=== PATIENT | male | born 1995 | race Caucasian/White ===

== ENCOUNTER 2018-10-17 04:57 | Emergency (ER) | payer OTHER, SELFPAY ==
[2018-10-17 04:58] VITALS: BP 126/66; PULSE 98; RESP 15; TEMP 36.7; O2SAT 97; BMI 29.6
--- NOTE | 2018-10-17 05:55 | ED.DCSUM_ITS ---
- ER Visit Summary Date of Service: 10/17/18 Chief Complaint: Sore throat History of Present Illness: The patient is a 23 M who presents with a sore throat and cough that began today. Patient states the pain is stabbing in his throat. Patient states it is worse when he lays down. Patient states that wate r does help with the pain. Patient admits to some drainage down the back of his throat that is worse when he lays flat. Patient admits to a cough but denies any sputum production. Patient states he does feel short of breath at times. Patient admits to nasal congestion but denies any headache or sinus pressure. Patient admits to an episode of nausea and vomiting earlier today. Physical Examination: Vital signs are stable. Patient is afebrile. Patient is in no acute distress. Oral mucosa is pink and moist. Oropharynx is erythematous. There are no exudates noted. Neck is supple. Trachea is midline. There is no JVD or lymphadenopathy noted. Heart was regular rate and rhythm. Lungs are clear and equal bilaterally. Abdomen is soft. Bowel sounds are normal. There is no tenderness. Cranial nerves II through XII are intact. There are no focal motor or sensory deficits noted. Test Results: Rapid strep was obtained and was negative. Emergency Department Course and Treatment: Patient was advised that this is a viral pharyngitis. Patient was instructed to take Tylenol or ibuprofen as need ed for aches or fevers. Patient was referred to follow-up with Dr. Deena Reynoso since she is the next primary care physician on-call for follow-up in 5 to 7 days. Patient understood and was agreeable with the plan. All questions were answered. Disposition: Discharge home Impression: Viral pharyngitis This note was generated with [employer] dictation software. It may contain incorrect words, spelling, and punctuation that were not noted in review of the chart prior to signing ED Disposition - Plan for ED Patient: Disposition: Home or Assisted Living Diagnosis: Viral pharyngitis Instructions: PHARYNGITIS, Viral Referrals: Care Physician,No Primary [Primary Care Provider] - Deena Reynoso MD [STAFF PHYSICIAN] - 5-7 Days Additional Instructions: This is a viral pharyngitis that is causing her sore throat. There is no antibiotic that will help with this. Take Tylenol or ibuprofen as you need to for fevers and aches. Warm showers will help with the cough and drainage. Follow-up with a primary care physician in 5 to 7 days.
[2018-10-17 07:04] VITALS: BP 121/77; PULSE 68; RESP 15; O2SAT 98
== END 2018-10-17 07:05 | disposition home or self-care (01) ==
PROVIDERS: Emergency Provider Emergency Medicine
DX: J02.8 Acute pharyngitis due to other specified organisms (principal); B97.89 Other viral agents as the cause of diseases classified elsewhere
CPT/HCPCS: 87880; 99282

== ENCOUNTER 2021-08-11 23:37 | Emergency (ER) | payer MEDICAID, SELFPAY ==
[2021-08-11 23:38] VITALS: BP 120/82; PULSE 96; RESP 16; TEMP 36.8; O2SAT 100; BMI 32.1
--- NOTE | 2021-08-11 23:49 | EDS_ITS ---
HPI History of Present Illness Chief Complaint: Lower Extremity Injury Informant: patient Narrative Narrative: Patient been drinking tonight celebrating 11 August. He was walking to the store with a friend. He accidentally tripped and fell on his left knee. He bumped his chin but no loss of consciousness. He states he thinks his kneecap was dislocated but it is better now. He states he rubbed his left arm on the ground but it does not hurt. He did not actually pass out at any time. His only complaint is mild left knee soreness. [facility] Medical History Anxiety Depression Home Medications naproxen 500 mg tablet 500 mg PO BID #20 tabs 08/12/21 [Rx Last Taken Unknown] Allergy/AdvReac Type Severity Reaction Status Date / Time No Known Allergies Allergy Verified 08/11/21 23:38 Social History Smoking Status: Current some day smoker tobacco type: cigarettes ROS ROS ED Eyes Eyes: Denies blurry vision, change in vision or diplopia ENT ENT ED: Reports other Details: Abraded chin but no pain 1. Cardiovascular Cardiovascular: Denies palpitations or racing heartbeat Gastrointestinal Gastrointestinal: Denies nausea or vomiting Musculoskeletal Musculoskeletal: Reports other Details: Left knee pain. ; Denies back pain or neck pain Integumentary Reports Abrasions Neurologic Neurologic: Denies paresthesias or weakness Hematologic/Lymphatic Hematologic/Lymphatic: Reports other Details: No anticoagulation ; Denies easy bleeding or easy bruising Allergic/Immunologic Allergic/Immunologic ED: Denies urticaria EXAM Physical Exam Const Vital Signs: 08/11/21 23:38 Temperature 98.2 F Temperature Source Temporal Pulse Rate 96 Respiratory Rate 16 Blood Pressure 120/82 H Blood Pressure Mean 94 Pulse Ox 100 Oxygen Delivery Method Room Air Positive well nourished and well developed General Appearance ED: well developed and NAD HEENT Reports moist mucous membranes HEENT Narrative: There is a slight abrasion on the front of the chin in the center. But no jaw tenderness. Teeth meet normally. No intraoral injury. No facial tenderness. No signs of any other injuries on the head. Eyes Eyes Narrative: Extraocular muscles are intact. Neck Neck Narrative: Although theNo tenderness or pain with range of motion. No complaints of pain. Patient has been drinking he is awake alert and clear informant as to the details of what happened. Chest Wall inspection of chest normal and palpation of chest normal Resp normal respiratory effort Auscultation: Negative for rales, rhonchi or wheezes Cardio regular rate and regular rhythm GI non-tender and non-distended Palpation: soft Back/Spine Cervical Spine: Negative for cervical spine tenderness Thoracic Spine / Upper Back: Negative for thoracic spinal tenderness Lumbar Spine / Lower Back: Negative for lumbar spinal tenderness Extremity Extremity Narrative: There is superficial abrasion to the dorsum of the left forearm but no tenderness or deformity. There are some abrasions around both knees anteriorly. Kneecap is in place clinically. Extensor mechanism is intact. However, on the left knee does have some mild nonfocal swelling anteriorly. The left knee has some tenderness where the right does not. Neuro oriented x3 Sensorium / Orientation: alert Psych mental status grossly normal Skin Trauma: abrasion; Negative for laceration MDM MDM MDM Narrative Medical decision making narrative: 4 view x-ray of the patient's left knee looked at by radiology and read by me shows no sign of fracture or dislocation. Repeat examination of the knee shows no clear laxity of ligaments. Extensor mechanism is intact. We discussed that if his patella was dislocated he certainly has some muscle and tendon tears. This might need physical therapy. He should use ice elevation. I would like him not to use an immobilizer because his knee is stable and I think it would worsen stiffness. I will refer him to orthopedics. We discussed reasons to return. We will get him up moving to make sure he is able to walk. I will give him some crutches for support. We will get him a safe ride home. Radiography Diagnostic Testing: Clinical Impression(s) from Imaging Studies Knee X-Ray 08/11/21 23:55 IMPRESSION: Negative left knee x-rays. Electronically Signed: Harshal Novak MD at 0:43 EDT , Discharge Plan Triage Chief Complaint: Lower Extremity Injury ED Provider: Jorge Rogers Dx/Rx/DC Orders Clinical Impression: Other dislocation of left patella, initial encounter, Injury of left knee Instructions: ED Knee Sprain, ED Patellar Dislocation/Subluxation Prescriptions: New naproxen 500 mg tablet 500 mg PO BID Qty: 20 0RF Primary Care Provider: Care Physician,No Primary Referrals: Jluius Maki DO [STAFF PHYSICIAN] - 1 Week Care Physician,No Primary [Primary Care Provider] - Disposition Disposition: Home, Self Care
--- NOTE | 2021-08-11 23:55 | RAD_ITS ---
EXAM: XR LEFT KNEE, 3 VIEWS CLINICAL INDICATION: trauma TECHNIQUE: Three views of the left knee. This report was created using [employer] report generation technology. COMPARISON: None. FINDINGS: BONES/JOINTS: Unremarkable. No acute fracture. No subluxation. Normal alignment. Preservation of the joint space. No sclerotic or destructive changes observed. SOFT TISSUES: Unremarkable. No soft tissue swelling or gas. No radiopaque foreign body. RAD/Knee 4 or More Views IMPRESSION: Negative left knee x-rays. Electronically Signed: Harshal Novak MD at 0:43 EDT ,
[2021-08-12 03:46] VITALS: BP 128/74; PULSE 91; RESP 16; O2SAT 97
[2021-08-12 03:48] VITALS: BP 124/81; PULSE 71; RESP 15; O2SAT 96
== END 2021-08-12 03:49 | disposition home or self-care (01) ==
PROVIDERS: Emergency Provider Emergency Medicine; Visit Provider Emergency Medicine
DX: S83.005A Unspecified dislocation of left patella, initial encounter (principal); S00.81XA Abrasion of other part of head, initial encounter; S50.812A Abrasion of left forearm, initial encounter; S80.211A Abrasion, right knee, initial encounter; S80.212A Abrasion, left knee, initial encounter; W18.09XA Striking against other object with subsequent fall, initial encounter; Y93.01 Activity, walking, marching and hiking; F17.210 Nicotine dependence, cigarettes, uncomplicated
CPT/HCPCS: 73564; 99284

== ENCOUNTER 2022-12-14 12:12 | Emergency (ER) | payer MEDICAID, SELFPAY ==
[2022-12-14] VITALS (8 sets, daily range): BP systolic 120–134; BP diastolic 61–82; PULSE 63–89; RESP 14–18; TEMP 36.4; O2SAT 98–100; BMI 29.9
[2022-12-14 12:49] LABS: Absolute Neutrophil Count 5.2 X10^3/uL (2.0-7.7); Basophil# 0.04 X10^3/uL; Basophil% 0.5 % (0-1); Eosinophil# 0.17 X10^3/uL; Eosinophils% 2.1 % (0-5); Hematocrit 43.5 % (40-54); Hemoglobin 15.2 g/dL (13.0-16.5); Lymphocyte % 25.2 % (19-41); Mean Corp Hgb Conc 34.9 g/dL (32-36); Mean Corpuscular Hgb 31.2 pg (27.0-32.0); Mean Corpuscular Volume 89.3 fL (80-94); Mean Platelet Vol. 10.3 fl (6.2-12.0); Monocyte# 0.54 X10^3/uL; Monocyte% 6.8 % (0-10); NRBC Flagged by Analyzer 0 % (0-5); Neutrophil # 5.17 X10^3/uL (2.7-7.7); Neutrophil % 65.1 % (47-70); Platelet Count 281 K/mm3 (150-450); RBC Distribution Width CV 11.9 % (11.6-14.6); RBC Distribution Width SD 38.5 fl (35.1-43.9); Red Blood Count 4.87 M/mm3 (4.6-6.2); White Blood Count 7.9 K/mm3 (4.4-11.0)
[2022-12-14 13:04] LABS: Anion Gap 6 (5-15); BUN 7 mg/dL (7-18); BUN/Creat Ratio 7.4 RATIO (10-20); Calcium,Total 8.8 mg/dL (8.5-10.1); Chloride 109 mmol/L (98-107); Creatinine, Serum 0.95 mg/dL (0.70-1.30); EST Glomerular Filtration Rate 99 mL/min (>60); Est Glom Filt Rate - Afr Amer 120 mL/min (>60); Estimated Creatinine Clearance 125.93 ml/min; Glucose 97 mg/dL (74-106); Potassium 3.5 mmol/L (3.5-5.1); Sodium Level 139 mmol/L (136-145)
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
[2022-12-14 13:30] LABS: Alcohol, Blood (Medical)-Serum < 3.0 mg/dL
[2022-12-14 15:02] LABS: Amphetamine Urine VISTA NEGATIVE (<1000 ng/mL); Barbiturate Urine VISTA NEGATIVE (< 200 ng/mL); Benzodiazepine Urine VISTA NEGATIVE (< 200 ng/mL); Cocaine Urine VISTA NEGATIVE (< 300 ng/mL); Ecstacy Urine VISTA POSITIVE (< 500 ng/mL); Methadone Urine VISTA NEGATIVE (< 300 ng/mL); PCP Urine VISTA NEGATIVE (< 25 ng/mL); THC Urine VISTA POSITIVE (< 50 ng/mL); Vista UDS pH Range 6
--- NOTE | 2022-12-14 18:52 | ED.RN ---
anne from crisis called with update that pt has been referred to Ricky and Trinh Marroquin at this time.
[2022-12-15] VITALS (9 sets, daily range): BP systolic 118–131; BP diastolic 61–74; PULSE 61–63; RESP 16–18; TEMP 36.6; O2SAT 99–100
[2022-12-15] MEDS: MELATONIN 10 MG TABLET PO (00:11)
== END 2022-12-15 07:01 ==
PROVIDERS: Emergency Provider Student in an Organized Health Care Education/Training Program; Visit Provider Student in an Organized Health Care Education/Training Program
DX: T14.91XA Suicide attempt, initial encounter (principal); F17.210 Nicotine dependence, cigarettes, uncomplicated
CPT/HCPCS: 80048; 80307; 82077; 85025; 87811; 99284

== ENCOUNTER 2023-06-03 18:45 | Emergency (ER) | payer MEDICAID, SELFPAY ==
[2023-06-03 19:00] VITALS: BP 115/80; PULSE 90; RESP 18; TEMP 35.8; O2SAT 100; BMI 28.6
--- NOTE | 2023-06-03 20:22 | EDS_ITS ---
HPI <LEIF Hollingsworth - Last Filed: 06/03/23 21:44> History of Present Illness Chief Complaint: Suicidal Narrative Narrative: Patient is a 28-year-old male who is currently transitioning to female however has been out of any sort of hormone replacement for multiple months. Patient does not take any of his psychiatric meds such as bupropion. Patient is here with his partner who is also transgender. Per the partner, for the last 1.5 months, the patient has been declining. The patient no longer does anything. The patient is unable to hold a job, the patient is not bathing herself, is not eating or drinking less told. The partner noticed that the patient was researching on the computer of how to kill yourself with no pain. This made the partner uneasy and brought her here for evaluation. PFSH <LEIF Hollingsworth - Last Filed: 06/03/23 21:44> PFS Medical History Anxiety Depression Home Medications bupropion HCl 300 mg 24 hr tablet, extended release 300 mg PO DAILY 06/03/23 [History Last Taken Unknown] Allergy/AdvReac Type Severity Reaction Status Date / Time No Known Allergies Allergy Verified 06/03/23 19:00 Social History Smoking Status: Current some day smoker tobacco type: cigarettes ROS <LEIF Hollingsworth - Last Filed: 06/03/23 21:44> ROS ED ROS Narrative Constitutional: Negative for fever, chills, weight loss, weakness Eyes: Negative for vision loss, vision change, double vision ENT: Negative for any sore throat, ear pain, congestion Cardiovascular: Negative for any chest pain, tightness, palpitations Respiratory: Negative for any cough, sputum production, hemoptysis, dyspnea, dyspnea on exertion, orthopnea Gastrointestinal: Negative for any abdominal pain, nausea, vomiting, diarrhea, constipation, blood in stool, blood in vomit : Negative for any urinary frequency, dysuria, retention, blood in urine Muscle skeletal: Negative for any neck pain, back pain Neurological: Negative for any headache, syncope, dizziness Skin: Negative for any rashes, itching, abrasions, lacerations Psychiatric: Negative for any homicidal ideation. Positive for depression, anxiety, suicidal ideation Hematologic: Negative for any excessive bruising, easy bleeding EXAM <LEIF Hollingsworth - Last Filed: 06/03/23 21:44> Physical Exam Narrative Exam Narrative: Vital signs reviewed. Patient appears disheveled, patient has poor eye contact, does stare different objects in the room, is a poor informant, not answering questions. Patient speaks very quietly, constantly saying that she does not know why this is happening to her. HEET: Head normocephalic atraumatic, TMs clear bilaterally. Posterior pharynx is clear, dry mucous membranes. Nares clear bilaterally. Neck: Supple with no lymphadenopathy or tenderness. No signs of meningismus. Cardiac: Regular rate and rhythm no murmurs gallops or rubs, equal peripheral pulses bilaterally. Respiratory: Lungs clear to auscultation bilaterally. No chest tenderness. Abdomen: Soft, nontender, nondistended. No abdominal bruit or pulsatile masses. No hepatosplenomegaly Extremities: No peripheral edema, no signs of gross trauma or deformity. Active full range of motion of all extremities. Neuro: Cranial nerves II through XII intact, no focal neurological deficits. Skin: Clean dry and intact with no rash, purpura, petechiae, vesicles or pustules. Backs/flank: No CVA tenderness, no midline spinal tenderness, no deformity. Psych: Normal mood and affect. No SI, HI or acute psychosis. Const Vital Signs: 06/03/23 19:00 06/03/23 21:28 Temperature 96.5 F L Temperature Source Temporal Pulse Rate 90 96 Respiratory Rate 18 18 Blood Pressure 115/80 105/74 Blood Pressure Mean 91 84 Pulse Ox 100 94 Oxygen Delivery Method Room Air Room Air Positive unkempt General Appearance ED: unkempt Psych Appearance: unkempt <Dr. Kelton Jaramillo MD - Last Filed: 06/03/23 21:39> Physical Exam Const Vital Signs: 06/03/23 19:00 06/03/23 21:28 Temperature 96.5 F L Temperature Source Temporal Pulse Rate 90 96 Respiratory Rate 18 18 Blood Pressure 115/80 105/74 Blood Pressure Mean 91 84 Pulse Ox 100 94 Oxygen Delivery Method Room Air Room Air MDM <LEIF Hollingsworth - Last Filed: 06/03/23 21:44> MDM Lab Data Labs: Laboratory Results - last 24 hr 06/03/23 20:40 WBC 10.5 RBC 5.76 Hgb 17.0 H Hct 51.3 MCV 89.1 MCH 29.5 MCHC 33.1 RDW Std Deviation 37.6 RDW Coeff of Sawyer 11.7 Plt Count 280 MPV 10.5 Immature Gran % (Auto) 0.400 Neut % (Auto) 65.7 Lymph % (Auto) 25.5 [place] % (Auto) 6.3 Eos % (Auto) 1.4 Baso % (Auto) 0.7 Absolute Neuts (auto) 6.9 Absolute Lymphs (auto) 2.68 Nucleated RBC % 0 Sodium 136 Potassium 3.8 Chloride 103 Carbon Dioxide 26.0 Anion Gap 7 BUN 7 Creatinine 1.05 Estim Creat Clear Calc 123.45 Est GFR (MDRD) Af Amer 107 Est GFR (MDRD) Non-Af 88 BUN/Creatinine Ratio 6.7 L Glucose 89 Calcium 9.3 Urine Opiates Screen NEGATIVE Urine Methadone Screen NEGATIVE Ur Barbiturates Screen NEGATIVE Ur Phencyclidine Scrn NEGATIVE Ur Amphetamines Screen NEGATIVE MDMA (Ecstasy) Screen NEGATIVE U Benzodiazepines Scrn NEGATIVE Urine Cocaine Screen NEGATIVE U Cannabinoids Screen POSITIVE H Ur Drug Screen Comment Ethyl Alcohol 4.0 Treatment and Re-Evaluation :: Differential diagnosis includes however is not limited to: Chronic anxiety, suicidal, psychosis, failure to thrive Patient is in no respiratory distress vital signs are stable patient presents to the emergency department for suicidal ideation, inability to care for herself. Patient is again a male that is transitioning female however is not had any hormone replacement multiple months. Patient has the visual look of a male. Patient was withdrawn, poor eye contact, patient did not admit to being suicidal however patient is not forthcoming with information, constantly says I do not know, just looks away and does not answer. Patient's partner states that the patient has been researching ways to kill oneself without pain, the patient does not been on any of her psychiatric meds because the patient does not want to take them. The patient appears disheveled, looks like she cannot care for herself, she is unable to even have a conversation.At this time, patient will receive basic laboratory values including a drug screen. Per the patient's partner, they only smoke marijuana rarely. Patient will be pink slipped. I b elieve the patient needs to be worked up with crisis and placed in the psychiatric unit for follow-up. Patient CBC was unremarkable, chemistries was unremarkable. Patient was positive for marijuana. Alcohol level was negative. Patient did follow-up with crisis who went into the room to talk to her. Currently waiting on their assessment. Patient will be given hydroxyzine for anxiety, currently waiting for placement. <Dr. Kelton Jaramillo MD - Last Filed: 06/03/23 21:39> [facility] Narrative Medical decision making narrative: I have personally performed a face to face assessment of the patient and have reviewed the DARRYL Note. I performed a substantive portion of the visit including all aspects of the following. My more findings include: History is [28-year-old biological male [id number] female. History of depression. More depressed and suicidal. No specific plan. No prior attempt. Prior mental health hospitalizations. Accompanied by patient's significant other.] Exam is [well-appearing 28-year-old biological male vital signs stable afebrile. No distress. No signs of toxidrome. No smell of alcohol. HEENT exam unremarkable. Neck nontender. No trauma. Lungs clear to auscultation. Heart regular rhythm no murmur rate about 90. Chest wall and ribs nontender. Abdomen soft nontender. Moving all 4 extremities. Nontender no edema no cords. No lacerations or trauma. 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 Normal dorsi plantarflexion. Back nontender. Neurologically awake and alert. Answering questions following commands.] Medical Decision Making [28-year-old biological male transitioning to female with depression and suicidal ideation. Patient is medically cleared. Labs are unremarkable other than positive for cannabis. Awaiting crisis evaluation for either discharge or mental health transfer. Patient be turned over to the overnight physician.] Other additions or changes: [None] History & Record Review Discussion w/independent historian: Patient and Significant other Lab Data Attestation: I reviewed the patient's lab results. Lab results narrative: CBC unremarkable. White count of 10. H&H is 17 and 51. Platelets 280. Electrolytes unremarkable gap 7. Normal BUN and creatinine. Glucose 89. Talk screen positive for cannabis only. Alcohol negative. Labs: Laboratory Results - last 24 hr 06/03/23 20:40 WBC 10.5 RBC 5.76 Hgb 17.0 H Hct 51.3 MCV 89.1 MCH 29.5 MCHC 33.1 RDW Std Deviation 37.6 RDW Coeff of [place]yer 11.7 Plt Count 280 MPV 10.5 Immature Gran % (Auto) 0.400 Neut % (Auto) 65.7 Lymph % (Auto) 25.5 [place] % (Auto) 6.3 Eos % (Auto) 1.4 Baso % (Auto) 0.7 Absolute Neuts (auto) 6.9 Absolute Lymphs (auto) 2.68 Nucleated RBC % 0 Sodium 136 Potassium 3.8 Chloride 103 Carbon Dioxide 26.0 Anion Gap 7 BUN 7 Creatinine 1.05 Estim Creat Clear Calc 123.45 Est GFR (MDRD) Af Amer 107 Est GFR (MDRD) Non-Af 88 BUN/Creatinine Ratio 6.7 L Glucose 89 Calcium 9.3 Urine Opiates Screen NEGATIVE Urine Methadone Screen NEGATIVE Ur Barbiturates Screen NEGATIVE Ur Phencyclidine Scrn NEGATIVE Ur Amphetamines Screen NEGATIVE MDMA (Ecstasy) Screen NEGATIVE U Benzodiazepines Scrn NEGATIVE Urine Cocaine Screen NEGATIVE U Cannabinoids Screen POSITIVE H Ur Drug Screen Comment Ethyl Alcohol 4.0 Discharge Plan Triage Chief Complaint: Suicidal ED Midlevel Provider: Alvaro Delacruz ED Provider: Kelton Jaramillo Dx/Rx/DC Orders Clinical Impression: Depression with suicidal ideation, Depression Prescriptions: No Action bupropion HCl 300 mg tablet extended release 24 hr 300 mg PO DAILY Patient Comments: taking inconsisently Primary Care Provider: Care Physician,No Primary Referrals: Care Physician,No Primary [Primary Care Provider] -
[2023-06-03 21:01] LABS: Absolute Lymphocyte Count 2.68 X10^3/uL (0.83-4.51); Absolute Neutrophil Count 6.9 X10^3/uL (2.0-7.7); Basophil# 0.07 X10^3/uL; Basophil% 0.7 % (0-1); Eosinophil# 0.15 X10^3/uL; Eosinophils% 1.4 % (0-5); Hematocrit 51.3 % (40-54); Lymphocyte # 2.68 X10^3/ul (0.83-4.51); Lymphocyte % 25.5 % (19-41); Mean Corp Hgb Conc 33.1 g/dL (32-36); Mean Corpuscular Hgb 29.5 pg (27.0-32.0); Mean Corpuscular Volume 89.1 fL (80-94); Mean Platelet Vol. 10.5 fl (6.2-12.0); Monocyte# 0.66 X10^3/uL; Monocyte% 6.3 % (0-10); NRBC Flagged by Analyzer 0 % (0-5); Neutrophil # 6.92 X10^3/uL (2.7-7.7); Neutrophil % 65.7 % (47-70); Platelet Count 280 K/mm3 (150-450); RBC Distribution Width CV 11.7 % (11.6-14.6); RBC Distribution Width SD 37.6 fl (35.1-43.9); Red Blood Count 5.76 M/mm3 (4.6-6.2); White Blood Count 10.5 K/mm3 (4.4-11.0)
[2023-06-03 21:13] LABS: Anion Gap 7 (5-15); BUN 7 mg/dL (7-18); BUN/Creat Ratio 6.7 RATIO (10-20); Calcium,Total 9.3 mg/dL (8.5-10.1); Chloride 103 mmol/L (98-107); Creatinine, Serum 1.05 mg/dL (0.70-1.30); EST Glomerular Filtration Rate 88 mL/min (>60); Est Glom Filt Rate - Afr Amer 107 mL/min (>60); Estimated Creatinine Clearance 123.45 ml/min; Glucose 89 mg/dL (74-106); Potassium 3.8 mmol/L (3.5-5.1); Sodium Level 136 mmol/L (136-145)
[2023-06-03 21:28] VITALS: BP 105/74; PULSE 96; RESP 18; O2SAT 94
[2023-06-03 21:30] LABS: Amphetamine Urine VISTA NEGATIVE (<1000 ng/mL); Barbiturate Urine VISTA NEGATIVE (< 200 ng/mL); Benzodiazepine Urine VISTA NEGATIVE (< 200 ng/mL); Cocaine Urine VISTA NEGATIVE (< 300 ng/mL); Ecstacy Urine VISTA NEGATIVE (< 500 ng/mL); Methadone Urine VISTA NEGATIVE (< 300 ng/mL); PCP Urine VISTA NEGATIVE (< 25 ng/mL); THC Urine VISTA POSITIVE (< 50 ng/mL); Vista UDS pH Range 5
[2023-06-03] MEDS: hydrOXYzine PAM 25 MG Capsule PO (21:40)
--- NOTE | 2023-06-04 03:32 | ED.RN ---
Attempted to call report to [facility], no answer.
[2023-06-04 05:22] VITALS: BP 93/55; PULSE 81; RESP 16; O2SAT 95
--- NOTE | 2023-06-04 06:37 | ED.RN ---
attempted to call report for second time to accepting facility, no answer.
[2023-06-04 06:56] VITALS: BP 93/55; PULSE 81; RESP 16; TEMP 35.8; O2SAT 95
== END 2023-06-04 07:14 ==
PROVIDERS: Emergency Provider Emergency Medicine; Visit Provider Emergency Medicine
DX: F32.A Depression, unspecified (principal); R45.851 Suicidal ideations; F41.9 Anxiety disorder, unspecified; F17.210 Nicotine dependence, cigarettes, uncomplicated
CPT/HCPCS: 80048; 80307; 80320; 85025; 99284; G0480

== ENCOUNTER 2023-07-12 08:00 | Outpatient (RCR) | payer MEDICAID, SELFPAY ==
--- NOTE | 2023-07-12 09:00 | BH.COMM_ITS ---
Communication Note Communication with Client Communication Note: Met with pt to complete initial paperwork. Completed the CSSR-S screening and risk assessment with pt. Client states thoughts of wishing to be , but denies any suicide attempts. Client reports she has thoughts she will , but in the context that fear someone will hurt her. Client denies active suicidal ideation, plan or intention to date. Discussed case with Dr. Em and pt will be admitted to [facility] level of care with diagnosis of Major Depressive Disorder, recurring, severe without psychosis F32.2.
--- NOTE | 2023-07-12 09:05 | BH.SGPN.GN ---
Behaviors/Verbalizations/Mental Status: [] Eye contact is poor. Motor activity is appropriate. Appearance is disheveled. Speech is soft. Mood is depressed. Affect is flat. Thoughts are linear and logical. No evidence of psychosis. Reviewed daily check in sheet and and pt reports 4/5 for not wanting to be alive ad 0/5 for intent. Completed [facility] Suicide screening with clinician prior to group. No imminent risk. Client Response/Progress/Benefit: [] Pt did not participate in group discussion. Decline to share. Pt declined to share. Spend majority of the session looking down at the ground. Unsure if attentive or not. Limited benefit from group. This was pt's first day in IOP so anxiety should be expected. Will continue in IOP to maintain safety, increase healthy coping, and improve functioning. Narrative Note: []
--- NOTE | 2023-07-12 10:15 | BH.SGPN.GN ---
Behaviors/Verbalizations/Mental Status: []Pt alert and oriented, casually dressed, grooming disheveled. Eye contact poor, looking away. Motor activity appropriate. Speech within normal limits, soft. Affect congruent, mood depressed, anxious. Thoughts linear, logical, no signs of hallucinations or delusions. Client Response/Progress/Benefit: [] Pt first day in tx, connected with topic of anxiety and attentive though passive participant throughout, taking notes. Listened throughout interactive discussion defining anxiety and identifying cognitive and physiological symptoms of anxiety. Group discussed how anxiety can prevent them from trying new things. Pt identified their physical signs of anxiety as: increased heart rate, biting finger, and stomach issues. Pt declined to identify safety behaviors however. Benefited from increased awareness and insight on anxiety and its impact. Pt will continue IOP tx to prevent decompensation, improve daily functioning, and increase engagement in activities she enjoys. Narrative Note: []
--- NOTE | 2023-07-12 11:15 | BH.SGPN.GN ---
Behaviors/Verbalizations/Mental Status: []Pt alert and oriented, disheveled and unkempt. Eye contact poor. Motor activity appropriate. Speech within normal limits. Affect flat, mood depressed. Thoughts linear, logical, no signs of hallucinations or delusions. Client Response/Progress/Benefit: [] Pt was a passive participant, but it was pt?s first day so this is common. Group was able to identify self-soothing and mind-based coping skills which included: 5-senses, meditation, deep breathing, TIPP, thought challenging, and progressive muscle relaxation. Pt declined to share what skills she would like to work on. Appeared to benefit from increasing repertoire of anxiety reduction skills. Pt will continue IOP tx to prevent decompensation, reduce avoidance, and monitor medication. Narrative Note: []
--- NOTE | 2023-07-13 09:00 | BH.SGPN.GN ---
Behaviors/Verbalizations/Mental Status: [] Eye contact poor, pt looking down. Motor activity appropriate. Speech soft, providing limited input. Affect congruent, mood anxious, depressed. Thoughts linear, logical, no signs of hallucinations or delusions. Reviewed client?s symptom tracker, denies SI, plan, or intent as of 07/13/2023. Client Response/Progress/Benefit: [] Client attentive and listening as group processed. Client denied however to process their own emotions with the group, reporting feeling too uncomfortable and anxious to do so at this time. Reports struggling in the group setting. Was however receptive of and appearing to benefit from supportive feedback and encouragement provided by the group. Recommended continued IOP tx to continue to improve mood stability, promote skill building and application, as well as prevent decompensation. Narrative Note: []
--- NOTE | 2023-07-13 15:20 | BH.MDN_ITS ---
Multi-Disciplinary Note Note 45-min Individual: Time Started:: 10:23 Date: 07/13/23 Purpose of session/treatment goals addressed:: To build rapport, provide support, and gather information on psychosocial stressors, history, and goals. Eye Contact:: Fair and Avoidant Motor Activity:: Appropriate Appearance:: Disheveled Speech:: Soft Mood:: Depressed Affect:: Constricted Thoughts:: Linear, Logical and No evidence of hallucinations/delusions noted Staff Interventions:: motivational interviewing, psychoeducation on: (CBT triangle, maintenance cycles), rapport building, strengths perspective, treatment planning and goal setting Client Response:: Pt responded well to session, open to meeting with therapist. Pt reports she has found limited benefit from therapy in the past and she is struggling to believe anything will help to improve her mental health symptoms. Pt has struggled with mental health issues for years and does not believe she has ever been truly ?happy?. Noted that she and her girlfriend of 2 years recently decided to move out of [facility] supportive housing and into an apartment of their own. Noted that they were unable to live together in the supportive housing program due to program policy. Since moving, pt feels her mental health has declined to the point of ?barely functioning?. Reports feeling unsafe in the area they moved to and constantly worries that something bad is going to happen to her. Went on to indicate when she is depressed she self-loathes and isolates. Pt also reported difficulties being around others as she becomes irritated by other?s happiness and angry she does not feel that way. Pt has support from her girlfriend at home and is connected with providers through the counseling center. Pt also is interested in learning new things and listening to [employer]. Pt reports she has limited motivation to make any changes because she does not believe anything will help. Did discuss struggling with her personal hygiene and was able to identify how this could maintain sx of dep ression. Willing to set a goal of brushing her teeth daily and showering to begin with. Risks/Concerns:: Pt denies any suicidal ideations, plan, or intent. Admits to thoughts of and passive, SI, but no active SI. Progress Toward Goals/Plan:: Pt's second day of IOP tx and she reports continues hesitancy and uncertainty that the program will be beneficial for her as she feels ?beyond help?. Pt reports she is willing to try IOP tx as traditional outpatient counseling has not been effective. Pt wants to work on reducing her depressive symptoms, managing anxiety, and improving her ability to tolerate distress. Pt will continue seeing her outpatient therapist in addition to IOP. Pt is also established with outpatient psychiatry. Pt does however have a hx of poor attendance and medication non-compliance. Pt will continue IOP tx to prevent decompensation, improve daily functioning, and reduce negative thi nking patterns. Time Stopped:: 11:03
--- NOTE | 2023-07-14 15:24 | BH.DS_ITS ---
Discharge Summary Demographics Date of Admission:: 07/12/23 Discharge Date: 07/14/23 Presenting Problems at Admission:: Pt is a 28 year old trans female who was referred to the IOP program following a period of declining mental health. Pt reports a hx of depression, anxiety, and borderline personality disorder which he has struggled with for as long as he can remember. Pt previously had been living in the apartments through a [facility]. Pt had more mental health support and assistance with independently living skill building while in these apartments. However, pt was unable to live with her partner who was also living in the supportive housing apartments. Several months ago pt and her partner moved out into an apartment of their own not connected with [facility]. Pt reports that this is not in a good neighborhood and has felt increasingly unsafe and has constant fears that someone is going to hurt him. Reports increased isolation, depression, poor hygiene, hopelessness, and worthlessness since moving. Pt is still connected with counseling, case management, and psychiatry through the counseling center but often does not show for appointments and has a hx of medication non- compliance as well. Discharge Diagnoses:: Major Depressive Disorder, recurring, severe without psychosis Reason for Discharge:: Pt was disengaged in treatment and reported difficulties in the group setting. She cancelled today despite understanding of the requirement to meet with psychiatry within 48 hours of admission. Pt reports understanding this will result in d/c from the IOP program and indicates belief outpatient counseling and services would be a better fit for them at this time. Treatment Progress During Treatment & Response: None noted as pt was only in IOP tx for 2 days. While in the program she did not engage with group participants, often looked down or away, and opted not to participate in group activities. Pt reports difficulties in group settings and believes individual tx would be a better fit. Issues Still to be Addressed:: Depression, isolation, self-care, distortions, anxiety, paranoia, hopelessness, worthlessness, dependency Discharge Recommendations/Instructions:: Pt recommended to continue with outpatient providers and case management through the counseling center. Additionally, encouraged to consider returning to supportive housing until stabilized. Discharge Handout
== END 2023-07-14 14:24 | disposition home or self-care (01) ==
LOC: BHIOP 08:00
PROVIDERS: Referring Provider Psychiatry & Neurology Psychiatry; Visit Provider Psychiatry & Neurology Psychiatry
DX: F33.2 Major depressive disorder, recurrent severe without psychotic features (principal)
CPT/HCPCS: H2012; H2020; S9480; 90834

== ENCOUNTER 2024-08-21 04:58 | Emergency (ER) | payer MEDICAID, SELFPAY ==
[2024-08-21 05:00] VITALS: BP 144/93; PULSE 102; RESP 24; TEMP 36.6; O2SAT 98; BMI 29.0
--- OUTSIDE RECORDS SUMMARY | 2024-08-21 05:36 | XMS RPT_ITS | CCD ---
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 Phone PROVIDER, UNKNOWN Unavailable Unavailable Ira Jennings Unavailable Unavailable Ira Jennings Unavailable Unavailable EARLENE FARRIS Attending Unavailable Stephanie REYNA, Joesph Rowley Primary Care Provide r Santana Andrea Attending Unavailable Care Physician, No Primary Primary Care Unava ilable Care Physician, No Primary Primary Care Unava ilable Kelton Jaramillo Attending Unavailable Care Physician, No Primary Primary Care Unava ilable Coco Em Referring Unavailable Coco Em Attending Unavailable Unavailable Primary Care Provider UnavailPRADEEP Pizano Referring Unavailable PRADEEP CALHOUN Attending Unavailable RITESH GARCIA Attending Unavailable Medications Current Medications Medication Drug Class(es) Dates Sig (Normalized) Sig (Original) ARIPiprazole 2 mg oral tablet (5 sources) Atypical Antipsychotic Start: 12-26-2021 ARIPiprazole (ABILIFY) 2 mg tablet 12/26/2021 Active 24 hr buPROPion hydrochloride 300 mg extended release oral tablet (1 source) Aminoketone Start: 06-03-2023 take 300 mg by mouth once daily Bupropion Hcl Active 300 MG PO DAILY June 03, 2023 12:00am citalopram 20 mg oral tablet (4 sources) Serotonin Reuptake Inhibitor Start: 01-18-2024 citalopram (CELEXA) 20 mg tablet 01/18/2024 Active estradiol 2 mg oral tablet (5 sources) Estrogen Start: 12-30-2021 estradiol (ESTRACE) 2 mg tablet Take 4 mg by mouth. 12/30/2021 Active FLUoxetine 20 mg oral capsule (1 source) Serotonin Reuptake Inhibitor Start: 12-26-2021 FLUoxetine (PROzac) 20 MG capsule pantoprazole 40 mg delayed release oral tablet (4 sources) Proton Pump Inhibitor Start: 03-06-2024 End: 09-02-2024 take 1 tablet by mouth once daily pantoprazole DR (PROTONIX) 40 mg tablet Indications: Gastroesophageal reflux disease with esophagitis without hemorrhage Take 1 tablet by mouth once daily. 90 tablet 1 03/06/2024 09/02/2024 Active spironolactone 100 mg oral tablet (5 sources) Aldosterone Antagonist Start: 12-30-2021 spironolactone (ALDACTONE) 100 mg tablet Take 200 mg by mouth. 12/30/2021 Active Completed/Discontinued Medications Medication Drug Class(es) Dates Sig (Normalized) Sig (Original) naproxen 500 mg oral tablet (2 sources) Nonsteroidal Anti-inflammatory Drug Start: 08-12-2021 End: 06-03-2023 take 500 mg by mouth twice daily Naproxen Discontinued 500 MG PO TWICE A DAY August 12, 2021 12:00am June 03, 2023 9:37pm Problems Active Problems Problem Classification Problem Date Documented Date Episodic/Chronic Esophageal disorders (1 source) Gastro-esophageal reflux disease with esophagitis; Translations: [Gastroesophageal reflux disease with esophagitis without hemorrhage] 03-06-2024 Chronic Joint disorders and dislocations; trauma-related (2 sources) Dislocation of patellofemoral joint; Translations: [Other dislocation of left patella, initial encounter] 08-20-2021 Episodic Miscellaneous mental health disorders (5 sources) Gender dysphoria; Translations: [Gender identity disorder, unspecified] Onset: 03-03-2019 11-23-2021 Chronic Mood disorders (7 sources) Recurrent major depression; Translations: [Major depressive disorder, recurrent, unspecified] Onset: 10-14-2017 11-23-2021 Chronic Other injuries and conditions due to external causes (1 source) Injury of knee; Translations: [Unspecified injury of left lower leg, initial encounter] Episodic Other injuries and conditions due to external causes (1 source) Injury of left knee; Translations: [Unspecified injury of left lower leg, initial encounter] 08-20-2021 Episodic Other screening for suspected conditions (not mental disorders or infectious disease) (1 source) Patient encounter status; Translations: [Encounter for screening for other metabolic disorders] 03-23-2024 Episodic Other upper respiratory infections (2 sources) Viral pharyngitis; Translations: [Acute pharyngitis, unspecified] 10-18-2018 Episodic Past or Other Problems Problem Classification Problem Date Documented Da te Episodic/Chronic Suicide and intentional self-inflicted injury (4 sources) Suicidal thoughts; Translations: [Suicidal ideations] Onset: 09-28-2017 11-23-2021 Episodic Results Test Name Value Interpretation Reference Range Facility Basic metabolic 2000 panelon 08-03-2024 Anion gap [Moles/Vol] 14 mmol/L Normal 8-15 [facility] Comment on above: Order Comment: Speci men Type: BLOOD SPECIMEN Ordering Facility: [facility] Address: [address] [place] [address] Performed By: #### 2 4321-2 #### [facility] CLIA [id number] [address] [place] [address] [place] Calcium [Mass/Vol] 9.9 mg/dL Normal 8.5-10.2 [facility] Comment on above: Order Comment: Speci men Type: BLOOD SPECIMEN Ordering Facility: [facility] Address: [address] [place] [address] Performed By: #### 2 4321-2 #### [facility] CLIA [id number] [address] [place] [address] [place] Chloride [Moles/Vol] 104 mmol/L Normal 98-107 [facility] Comment on above: Order Comment: Speci men Type: BLOOD SPECIMEN Ordering Facility: [facility] Address: [address] [place] [address] Performed By: #### 2 4321-2 #### [facility] CLIA [id number] [address] [place] [address] [place] CO2 [Moles/Vol] 18 mmol/L Low 22-30 [facility] Comment on above: Order Comment: Speci men Type: BLOOD SPECIMEN Ordering Facility: [facility] Address: [address] [place] [address] Performed By: #### 2 4321-2 #### [facility] CLIA [id number] [address] [place] [address] [place] Creatinine [Mass/Vol] 0.84 mg/dL Normal 0.73-1.22 [facility] Comment on above: Order Comment: Torri stinson Type: BLOOD SPECIMEN Ordering Facility: [facility] Address: [address] [place] [address] Performed By: #### 2 4321-2 #### [id number] [address] [place] [address] OF [facility] Creatinine and Glomerular filtration rate.predicted panel (S/P/Bld) 120 mL/min/1.73m??? Normal >=60 [facility] Comment on above: Order Comment: Torri stinson Type: BLOOD SPECIMEN Ordering Facility: [facility] Address: [address] [place] [address] Result Comment: Lilibeth mated Glomerular Filtration Rate (eGFR) is calculated using the 2020 CKD-EPI creatinine equation. This equation utilizes serum creatinine, sex, and age as parameters. The creatinine assay has traceable calibration to isotope dilution-mass spectrometry. Refer to KDIGO guidelines for clinical interpretation. In patients with unstable renal function, e.g. those with acute kidney injury, the eGFR may not accurately reflect actual GFR. Performed By: #### 2 4321-2 #### [facility] [id number] [address] [place] [address] [place] Glucose [Mass/Vol] 106 mg/dL High 74-99 [facility] Comment on above: Order Comment: Torri stinson Type: BLOOD SPECIMEN Ordering Facility: [facility] Address: [address] [place] [address] Result Comment: The [place] [employer] (ADA) provides guidance for cutoff values for fasting glucose and random glucose. The ADA defines fasting as no caloric intake for at least 8 hours. Fasting plasma glucose results between 100 to 125 mg/dL indicate increased risk for diabetes (prediabetes). Fasting plasma glucose results greater than or equal to 126 mg/dL meet the criteria for diagnosis of diabetes. In the absence of unequivocal hyperglycemia, results should be confirmed by repeat testing. In a patient with classic symptoms of hyperglycemia or hyperglycemic crisis, random plasma glucose results greater than or equal to 200 mg/dL meet the criteria for diagnosis of diabetes. Reference: Standards of Medical Care in Diabetes 2016, [place] [employer]. Diabetes Care. 2016.39(Suppl 1). Performed By: #### 2 4321-2 #### [facility] [id number] [address] [place] [address] [place] Potassium [Moles/Vol] 3.8 mmol/L Normal 3.7-5.1 [facility] Comment on above: Order Comment: Speci men Type: BLOOD SPECIMEN Ordering Facility: [facility] Address: [address] [place] [address] Performed By: #### 2 4321-2 #### [facility] [id number] [address] [place] [address] [place] Sodium [Moles/Vol] 136 mmol/L Normal 136-144 [facility] Comment on above: Order Comment: Yurii men Type: BLOOD SPECIMEN Ordering Facility: [facility] Address: [address] [place] [address] Performed By: #### 2 4321-2 #### [facility] [id number] [address] [place] [address] [place] Urea nitrogen [Mass/Vol] 6 mg/dL Low 9-24 [facility] Comment on above: Order Comment: Speci men Type: BLOOD SPECIMEN Ordering Facility: [facility] Address: [address] [place] [address] Performed By: #### 2 4321-2 #### [facility] [id number] [address] [place] [address] [place] CBC W Auto Differential pane l (Bld)on 08-03-2024 Basophils (Bld) [#/Vol] 0.06 10*3/uL Normal <0.11 [facility] Comment on above: Order Comment: Speci men Type: BLOOD SPECIMEN Ordering Facility: [facility] Address: [address] [place] [address] Performed By: #### 5 7021-8 #### [facility] CLIA [id number] [address] [place] [address] [place] Basophils/100 WBC (Bld) 0.7 % Normal [facility] Comment on above: Order Comment: Speci men Type: BLOOD SPECIMEN Ordering Facility: [facility] Address: [address] [place] [address] Performed By: #### 5 7021-8 #### [facility] CLIA [id number] [address] [place] [address] [place] Differential cell count method Nom (Bld) Auto Normal [facility] Comment on above: Order Comment: Speci men Type: BLOOD SPECIMEN Ordering Facility: [facility] Address: [address] [place] [address] Performed By: #### 5 7021-8 #### [facility] CLIA [id number] [address] [place] [address] [place] Eosinophils (Bld) [#/Vol] 0.19 10*3/uL Normal <0.46 [facility] Comment on above: Order Comment: Speci men Type: BLOOD SPECIMEN Ordering Facility: [facility] Address: [address] [place] [address] Performed By: #### 5 7021-8 #### [facility] CLIA [id number] [address] [place] [address] [place] Eosinophils/100 WBC (Bld) 2.3 % Normal [facility] Comment on above: Order Comment: Speci men Type: BLOOD SPECIMEN Ordering Facility: [facility] Address: [address] [place] [address] Performed By: #### 5 7021-8 #### [facility] CLIA [id number] [address] [place] [address] [place] Erythrocyte distribution width (RBC) [Ratio] 11.9 % Normal 11.5-15.0 [facility] Comment on above: Order Comment: Speci men Type: BLOOD SPECIMEN Ordering Facility: [facility] Address: [address] [place] [address] Performed By: #### 5 7021-8 #### [facility] CLIA [id number] [address] [place] [address] [place] Hematocrit (Bld) [Volume fraction] 46.6 % Normal 39.0-51.0 [facility] Comment on above: Order Comment: Speci men Type: BLOOD SPECIMEN Ordering Facility: [facility] Address: [address] [place] [address] Performed By: #### 5 7021-8 #### [facility] [id number] [address] [place] [address] [place] Hemoglobin (Bld) [Mass/Vol] 16.3 g/dL Normal 13.0-17.0 [facility] Comment on above: Order Comment: Speci men Type: BLOOD SPECIMEN Ordering Facility: [facility] Address: [address] [place] [address] Performed By: #### 5 7021-8 #### [facility] CLIA [id number] [address] [place] [address] [place] Immature granulocytes (Bld) [#/Vol] 0.03 10*3/uL Normal <0.10 [facility] Comment on above: Order Comment: Speci men Type: BLOOD SPECIMEN Ordering Facility: [facility] Address: [address] [place] [address] Performed By: #### 5 7021-8 #### [facility] [id number] [address] [place] [address] [place] Immature granulocytes/100 WBC (Bld) 0.4 % Normal [facility] Comment on above: Order Comment: Speci men Type: BLOOD SPECIMEN Ordering Facility: [facility] Address: [address] [place] [address] Performed By: #### 5 7021-8 #### [facility] CLIA [id number] [address] [place] [address] [place] Lymphocytes (Bld) [#/Vol] 2.40 10*3/uL Normal 1.00-4.00 [facility] Comment on above: Order Comment: Speci men Type: BLOOD SPECIMEN Ordering Facility: [facility] Address: [address] [place] [address] Performed By: #### 5 7021-8 #### [facility] CLIA [id number] [address] [place] [address] [place] Lymphocytes/100 WBC (Bld) 28.8 % Normal [facility] Comment on above: Order Comment: Speci men Type: BLOOD SPECIMEN Ordering Facility: [facility] Address: [address] [place] [address] Performed By: #### 5 7021-8 #### [facility] CLIA [id number] [address] [place] [address] [place] MCH (RBC) [Entitic mass] 29.2 pg Normal 26.0-34.0 [facility] Comment on above: Order Comment: Speci men Type: BLOOD SPECIMEN Ordering Facility: [facility] Address: [address] [place] [address] Performed By: #### 5 7021-8 #### [facility] CLIA [id number] [address] [place] [address] [place] MCHC (RBC) [Mass/Vol] 35.0 g/dL Normal 30.5-36.0 [facility] Comment on above: Order Comment: Speci men Type: BLOOD SPECIMEN Ordering Facility: [facility] Address: [address] [place] [address] Performed By: #### 5 7021-8 #### [facility] CLIA [id number] [address] [place] [address] [place] MCV (RBC) [Entitic vol] 83.5 fL Normal 80.0-100.0 [facility] Comment on above: Order Comment: Speci men Type: BLOOD SPECIMEN Ordering Facility: [facility] Address: [address] [place] [address] Performed By: #### 5 7021-8 #### [facility] CLIA [id number] [address] [place] [address] [place] Monocytes (Bld) [#/Vol] 0.55 10*3/uL Normal <0.87 [facility] Comment on above: Order Comment: Speci men Type: BLOOD SPECIMEN Ordering Facility: [facility] Address: [address] [place] [address] Performed By: #### 5 7021-8 #### [facility] CLIA [id number] [address] [place] [address] [place] Monocytes/100 WBC (Bld) 6.6 % Normal [facility] Comment on above: Order Comment: Speci men Type: BLOOD SPECIMEN Ordering Facility: [facility] Address: [address] [place] [address] Performed By: #### 5 7021-8 #### [facility] CLIA [id number] [address] [place] [address] [place] Neutrophils (Bld) [#/Vol] 5.11 10*3/uL Normal 1.45-7.50 [facility] Comment on above: Order Comment: Speci men Type: BLOOD SPECIMEN Ordering Facility: [facility] Address: [address] [place] [address] Performed By: #### 5 7021-8 #### [facility] CLIA [id number] [address] [place] [address] [place] Neutrophils/100 WBC (Bld) 61.2 % Normal [facility] Comment on above: Order Comment: Speci men Type: BLOOD SPECIMEN Ordering Facility: [facility] Address: [address] [place] [address] Performed By: #### 5 7021-8 #### [facility] CLIA [id number] [address] [place] [address] [place] Nucleated RBC (Bld) [#/Vol] 10*3/uL Normal <0.01 [facility] Comment on above: Order Comment: Speci men Type: BLOOD SPECIMEN Ordering Facility: [facility] Address: [address] [place], [place] [address] Performed By: #### 5 7021-8 #### [facility] CLIA [id number] [address] [place] [address] [place] Nucleated RBC/100 WBC (Bld) [Ratio] 0.0 /100 WBC Normal [facility] Comment on above: Order Comment: Speci men Type: BLOOD SPECIMEN Ordering Facility: [facility] Address: [address] [place] [address] Performed By: #### 5 7021-8 #### [facility] CLIA [id number] [address] [place] [address] [place] Platelet mean volume (Bld) [Entitic vol] 9.5 fL Normal 9.0-12.7 [facility] Comment on above: Order Comment: Speci men Type: BLOOD SPECIMEN Ordering Facility: [facility] Address: [address] [place] [address] Performed By: #### 5 7021-8 #### [facility] CLIA [id number] [address] [place] [address] [place] Platelets (Bld) [#/Vol] 283 10*3/uL Normal 150-400 [facility] Comment on above: Order Comment: Speci men Type: BLOOD SPECIMEN Ordering Facility: [facility] Address: [address] [place] [address] Performed By: #### 5 7021-8 #### [facility] CLIA [id number] [address] [place] [address] [place] RBC (Bld) [#/Vol] 5.58 10*6/uL Normal 4.20-6.00 [facility] Comment on above: Order Comment: Speci men Type: BLOOD SPECIMEN Ordering Facility: [facility] Address: [address] [place] [address] Performed By: #### 5 7021-8 #### [facility] CLIA [id number] [address] [place] [address] [place] WBC (Bld) [#/Vol] 8.34 10*3/uL Normal 3.70-11.00 [facility] Comment on above: Order Comment: Speci men Type: BLOOD SPECIMEN Ordering Facility: [facility] Address: [address] [place] [address] Performed By: #### 5 7021-8 #### [facility] CLIA [id number] [address] [place] [address] OF [facility] CNPBhumi 04-10-2024 [facility] Telephone (INTKB) -------- GOVIND DEWITT ([id number]) 1995 M Date Time Provider Department 04/10/24 [facility]AD[facility]N [facility] During your visit today, we recorded the following information about you: Dolly Noel 04/10/2024 7:58 AM Signed Called patient per below message. Left message to call office. Dolly Noel Per Roxanna Montejo - Due to a change in the provider's schedule, we will be changing your upcoming visit to a Virtual Visit. Karolina Anguiano MA 07/18/2024 10:19 AM Signed I called and spoke with patient and another individual. Both are aware that appointment is being changed to virtual. Verbalized understanding. Allergies As of Date: 04/10/2024 (Not on File) Date Reviewed: 03/06/2024 Reviewed by: Janelle Velez MA - Fully Assessed Prescriptions as of 07/18/2024 - ARIPiprazole (ABILIFY) 2 mg tablet - estradiol (ESTRACE) 2 mg tablet Take 4 mg by mouth. - spironolactone (ALDACTONE) 100 mg tablet Take 200 mg by mouth. - citalopram (CELEXA) 20 mg tablet - pantoprazole DR (PROTONIX) 40 mg tablet Take 1 tablet by mouth once daily. Problem List As Of Date: 04/10/2024 (None) Encounter Status:Closed by DOLLY NOEL on 04/10/24 [facility] CESAROVon 03-06-2024 [facility] Office Visit (FAMDNA ) -------- GOVIND DEWITT ([id number]) 1995 M Date Time Provider Department 03/06/24 2:20 PM RITESH GARCIA During your visit today, we recorded the following information about you: Temperature Pulse Respiration Blood pressure 99 degrees 99/minute 16/minute 107/70 Weight Height 100.8 kg 1.84 m Ritesh Garcia DO 03/23/2024 12:06 PM Signed Patient presents with: Yearly Exam Hormone Problem Depression Screening Never done Anxiety Screening Never done HIV Screening Never done Influenza Vaccine(1) due on 10/10/2023 Covid-19 Vaccine( season) Never done Last 3 Encounter BP Readings: Date: BP: 03/06/2024 107/70 No results found for: LDL HBA1C: No results found for: HBA1C No results found for: UALBCR, UPROT, UCR, UCRR, UALB Diabetic Foot and Retinal Eye Exam not Overdue 28 year old adult presenting for follow up I have fully reviewed the past medical, surgical, social and family history and updated the Histories section of [facility]. Experiencing reflux symptoms Has not tried ppi No wt loss blood in stool abd pain No red flag symptoms Would like labs checked as well Current Outpatient Medications on File Prior to Visit: Current Outpatient Medications Medication Sig Dispense Refill ARIPiprazole (ABILIFY) 2 mg tablet estradiol (ESTRACE) 2 mg tablet Take 4 mg by mouth. spironolactone (ALDACTONE) 100 mg tablet Take 200 mg by mouth. citalopram (CELEXA) 20 mg tablet No current facility-administered medications for this visit. ALLERGIES Not on File History reviewed. No pertinent surgical history. Social history reviewed in [facility]. REVIEW OF SYSTEMS: Constitutional: Denies fever, denies chills, denies fatigue Head: Denies headache Eyes: Denies changes in vision or blurry vision Ears/Nose/Throat: Denies sore throat, denies rhinorrhea Musculoskeletal: Denies joint pain, denies myalgias Abd: No abd pain, no vomiting, no diarrhea, no nausea Skin/Breast: Denies rash or lesions Cardiovascular: Denies chest pain, denies palpitations, denies LE edema Respiratory: Denies cough, denies SOB, denies wheezing Neurological: Denies numbness, denies tingling, denies weakness PHYSICAL EXAMINATION: General appearance: nad Skin: no suspicious rashes or lesions Head: Normocephalic, atraumatic Eyes: Anicteric sclera Nose/Sinuses: Nares normal Oropharynx: Mucosa moist Neck: Supple Lungs: Lungs clear to auscultation. No wheezing, rhonchi, rales. Heart: RRR without murmur, gallop, or rubs. Abdomen: Normal abdominal exam, Abdomen soft, non-tender. No masses Extremities: No deformities, no edema, no cyanosis. Musculoskeletal: No joint swelling, no deformity Neuro: Speech intact ASSESSMENT/PLAN: 1. Gastroesophageal reflux disease with esophagitis without hemorrhage - ICD9: 530.81, 530.10, ICD10: K21.00 (primary diagnosis) - Discussed lifestyle modifications including - PANTOPRAZOLE 40 MG TABLET,DELAYED RELEASE 2. Screening for metabolic disorder - ICD9: V77.99, ICD10: Z13.228 - HEMOGLOBIN A1C - LIPID PANEL BASIC GERD symptoms ppi trial follow up if persists Check labs Discussed with patient red flag symptoms. Discussed risks and benefits of treatment plan. Pt understands to seek appropriate evaluation for new or worsening symptoms. Patient understands and agrees with plan, all concerns and questions addressed. Allergies As of Date: 03/06/2024 (Not on File) Date Reviewed: 03/06/2024 Reviewed by: Janelle Velez MA - Fully Assessed Reason for Visit: Yearly Exam [187] Hormone Problem [20090215] Primary Visit Diagnosis:Gastroesophage al reflux disease with esophagitis without hemorrhage [K21.00] Other Visit Diagnosis:Screening for metabolic disorder [Z13.228] Order(s):HEMOGLOBIN A1C [DWESB5U] Order #: [id number] FUTURE LIPID PANEL BASIC [SQLIPB] Order #: [id number] FUTURE pantoprazole DR (PROTONIX) 40 mg tabletTake 1 tablet by mouth once daily.Disp: 90 tabletRfl: 1 Prescriptions as of 03/23/2024 - ARIPiprazole (ABILIFY) 2 mg tablet - estradiol (ESTRACE) 2 mg tablet Take 4 mg by mouth. - spironolactone (ALDACTONE) 100 mg tablet Take 200 mg by mouth. - citalopram (CELEXA) 20 mg tablet - pantoprazole DR (PROTONIX) 40 mg tablet Take 1 tablet by mouth once daily. Problem List As Of Date: 03/06/2024 (None) Prescriptions ordered this encounter Disp Refills Start End PANTOPRAZOLE 40 MG TABLET,DELAYED RE* 90 t* 1 03/06/2024 09/02/2024 Route: ORAL Sig: Take 1 tablet by mouth once daily. Level of Service: OFFICE/OUTPATIENT NEW MODERATE MDM 45 MINUTES [37613] Additional E/M codes: VISIT CPLX INHERENT EANDM ASSOC WITH MED * Encounter Status:Closed by RITESH GARCIA on 03/23/24 Normal [facility] Absolute lymphocyte countOrd ered By: Kelton Jaramillo on 06-03-2023 Lymphocytes Auto (Unsp spec) [#/Vol] 2.68 10*3/uL 0.83-4.51 [facility] Alcohol, Blood (Medical)-Ser umon 06-03-2023 SERUM ETOH 4.0 mg/dL Normal [facility] Comment on above: Result Comment: The serum:whole blood ethanol ratio is approximately 1.14 and varies slightly with hematocrit. Medical Alcohol reference interval and critical value in non-tolerant individuals; 50 - 100 Impairment 100 Intoxication 100 - 250 Severe Poisoning 250 - 400 Deep/possible fatal coma Performed By: #### L 505.5000, L100.0100, L500.2500, L501.9100 #### [facility] [address] [place], [address] Automated lymphocyte count a s percentage of total leukocytesOrdered By: Kelton Jaramillo on 06-03-2023 Lymphocytes/100 WBC Auto (Unsp spec) 25.5 % 19-41 [facility] Basic Metabolic Profile (BMP )on 06-03-2023 BUN/CRE 6.7 RATIO Low 10-20 [facility] Comment on above: Performed By: #### L 501.9100, L100.0100, L500.2500, L505.5000 #### [facility] [address] [place], [address] CA,Total 9.3 mg/dL Normal 8.5-10.1 [facility] Comment on above: Performed By: #### L 501.9100, L100.0100, L500.2500, L505.5000 #### [facility] [address] [place], [address] Chloride [Moles/Vol] 103 mmol/L Normal 98-107 [facility] Comment on above: Performed By: #### L 501.9100, L100.0100, L500.2500, L505.5000 #### [facility] [address] [place], [address] CO2 [Moles/Vol] 26.0 mmol/L Normal 21.0-32.0 [facility] Comment on above: Performed By: #### L 501.9100, L100.0100, L500.2500, L505.5000 #### [facility] [address] [place], [address] Creatinine [Mass/Vol] 1.05 mg/dL Normal 0.70-1.30 [facility] Comment on above: Result Comment: The validity of the calculated GFR GFRAA in patients over 70 years has not been determined. Clinical correlation is essential. Performed By: #### L 501.9100, L100.0100, L500.2500, L505.5000 #### [facility] [address] [place], [address] ECRCL 123.45 ml/min Normal [facility] Comment on above: Performed By: #### L 501.9100, L100.0100, L500.2500, L505.5000 #### [facility] [address] [place], [address] EST GFR - AA 107 mL/min Normal >60 [facility] Comment on above: Result Comment: Afri can Bahraini GFR Calc Performed By: #### L 501.9100, L100.0100, L500.2500, L505.5000 #### [facility] [address] [place], [address] GAP 7 Normal 5-15 [facility] Comment on above: Performed By: #### L 501.9100, L100.0100, L500.2500, L505.5000 #### [facility] [address] [place], [address] GFR/1.73 sq M.predicted among non-blacks MDRD (S/P/Bld) [Vol rate/Area] 88 mL/min/{1.73_m2} Normal >60 [facility] Comment on above: Result Comment: Non- GFR Calc Performed By: #### L 501.9100, L100.0100, L500.2500, L505.5000 #### [facility] [address] [place], [address] Glucose [Mass/Vol] 89 mg/dL Normal 74-106 [facility] Comment on above: Performed By: #### L 501.9100, L100.0100, L500.2500, L505.5000 #### [facility] [address] [place], [address] Potassium [Moles/Vol] 3.8 mmol/L Normal 3.5-5.1 [facility] Comment on above: Performed By: #### L 501.9100, L100.0100, L500.2500, L505.5000 #### [facility] [address] [place], [address] Sodium [Moles/Vol] 136 mmol/L Normal 136-145 [facility] Comment on above: Performed By: #### L 501.9100, L100.0100, L500.2500, L505.5000 #### [facility] [address] [place], [address] Urea nitrogen [Mass/Vol] 7 mg/dL Normal 7-18 [facility] Comment on above: Performed By: #### L 501.9100, L100.0100, L500.2500, L505.5000 #### [facility] [address] [place], [address] Basophil percentageOrdered B y: Kelton Jaramillo on 06-03-2023 Basophils/100 WBC (Bld) 0.7 % 0-1 [facility] Chloride [Moles/Vol] 103 mmol/L 98-107 [facility] Eosinophils/100 WBC (Bld) 1.4 % 0-5 [facility] Glucose [Mass/Vol] 89 mg/dL 74-106 [facility] Hemoglobin (Bld) [Mass/Vol] 17.0 g/dL 13.0-16.5 [facility] Monocytes/100 WBC (Bld) 6.3 % 0-10 [facility] Neutrophils (Bld) [#/Vol] 6.9 10*3/uL 2.0-7.7 [facility] Neutrophils/100 WBC (Bld) 65.7 % 47-70 [facility] Potassium [Moles/Vol] 3.8 mmol/L 3.5-5.1 [facility] Sodium [Moles/Vol] 136 mmol/L 136-145 [facility] WBC (Bld) [#/Vol] 10.5 10*3/uL 4.4-11.0 [facility] CBC W/Diff, Automatedon 04 Absolute Lymph 2.68 X10 3/uL Normal 0.83-4.51 [facility] Comment on above: Performed By: #### L 505.5000, L100.0100, L500.2500, L501.9100 #### [facility] [address] [place], [address] Absolute Neut 6.9 X10 3/uL Normal 2.0-7.7 [facility] Comment on above: Performed By: #### L 505.5000, L100.0100, L500.2500, L501.9100 #### [facility] [address] [place], [address] Basophils/100 WBC (Bld) 0.7 % Normal 0-1 [facility] Comment on above: Performed By: #### L 505.5000, L100.0100, L500.2500, L501.9100 #### [facility] [address] [place], [address] Eosinophils/100 WBC (Bld) 1.4 % Normal 0-5 [facility] Comment on above: Performed By: #### L 505.5000, L100.0100, L500.2500, L501.9100 #### [facility] [address] [place], [address] Erythrocyte distribution width (RBC) [Ratio] 11.7 % Normal 11.6-14.6 [facility] Comment on above: Performed By: #### L 505.5000, L100.0100, L500.2500, L501.9100 #### [facility] [address] [place], [address] Hematocrit (Bld) [Volume fraction] 51.3 % Normal 40-54 [facility] Comment on above: Performed By: #### L 505.5000, L100.0100, L500.2500, L501.9100 #### [facility] [address] [place], [address] Hemoglobin (Bld) [Mass/Vol] 17.0 g/dL High 13.0-16.5 [facility] Comment on above: Performed By: #### L 505.5000, L100.0100, L500.2500, L501.9100 #### [facility] [address] [place], [address] IG% 0.400 Normal 0.0-0.9 [facility] Comment on above: Result Comment: IG% - Immature Granulocytes (promyelocytes, myelocytes and metamyelocytes) > 1% indicates that a LEFT SHIFT is Present. Performed By: #### L 505.5000, L100.0100, L500.2500, L501.9100 #### [facility] [address] [place], [address] Lymphocytes/100 WBC (Bld) 25.5 % Normal 19-41 [facility] Comment on above: Performed By: #### L 505.5000, L100.0100, L500.2500, L501.9100 #### [facility] [address] [place], [address] MCH (RBC) [Entitic mass] 29.5 pg Normal 27.0-32.0 [facility] Comment on above: Performed By: #### L 505.5000, L100.0100, L500.2500, L501.9100 #### [facility] [address] [place], [address] MCHC (RBC) [Mass/Vol] 33.1 g/dL Normal 32-36 [facility] Comment on above: Performed By: #### L 505.5000, L100.0100, L500.2500, L501.9100 #### [facility] [address] [place], [address] MCV (RBC) [Entitic vol] 89.1 fL Normal 80-94 [facility] Comment on above: Performed By: #### L 505.5000, L100.0100, L500.2500, L501.9100 #### [facility] [address] [place], [address] Monocytes/100 WBC (Bld) 6.3 % Normal 0-10 [facility] Comment on above: Performed By: #### L 505.5000, L100.0100, L500.2500, L501.9100 #### [facility] [address] [place], [address] Neutrophils/100 WBC (Bld) 65.7 % Normal 47-70 [facility] Comment on above: Performed By: #### L 505.5000, L100.0100, L500.2500, L501.9100 #### [facility] [address] [place], [address] Nucleated RBC (Bld) [#/Vol] 0 10*3/uL Normal 0-5 [facility] Comment on above: Performed By: #### L 505.5000, L100.0100, L500.2500, L501.9100 #### [facility] [address] [place], [address] Platelet mean volume (Bld) [Entitic vol] 10.5 fL Normal 6.2-12.0 [facility] Comment on above: Performed By: #### L 505.5000, L100.0100, L500.2500, L501.9100 #### [facility] [address] [place], [address] Platelets (Bld) [#/Vol] 280 10*3/uL Normal 150-450 [facility] Comment on above: Performed By: #### L 505.5000, L100.0100, L500.2500, L501.9100 #### [facility] [address] [place], [address] RBC (Bld) [#/Vol] 5.76 10*6/uL Normal 4.6-6.2 [facility] Comment on above: Performed By: #### L 505.5000, L100.0100, L500.2500, L501.9100 #### [facility] [address] [place], [address] RDW SD 37.6 fl Normal 35.1-43.9 [facility] Comment on above: Performed By: #### L 505.5000, L100.0100, L500.2500, L501.9100 #### [facility] [address] [place], [address] WBC (Bld) [#/Vol] 10.5 10*3/uL Normal 4.4-11.0 [facility] Comment on above: Performed By: #### L 505.5000, L100.0100, L500.2500, L501.9100 #### [facility] [address] [place], [address] Determination of erythrocyte mean corpuscular volume (MCV)Ordered By: Kelton aJramillo on 06-03-2023 MCV (RBC) [Entitic vol] 89.1 fL 80-94 [facility] Emergency Department Summary on 06-03-2023 Emergency Department Summary [facility] Medical Records Department [address] [place] [address] Emergency Department Summary 06/03/23 MR#: [id number] Acct: [id number] Name: MYRON DEWITT Rep #: [id number] : 1995 28 From: Alvaro YADAV PCP: Care Physician,No Primary Status:REG ER Location: ED ADDENDUM by Dr. Armin Palmer MD on 06/04/23 at 0146 Patient endorsed to me by Dr. Husam Jaramillo to make final disposition on this patient that it is being evaluated by crisis. He was informed that the patient has been accepted at [facility] in [place] and is currently awaiting transfer. Patient has been stable throughout emergency department course thus far and has not required any medications except for nicotine patch. Disposition is transferred to a psychiatric facility in stable condition. 06/04/23 014 Cosigner Signature (if applicable): 06/03/23 2242 cc: No Primary Care Physician * Signed HPI History of Present Illness Chief Complaint: Suicidal Narrative Narrative: Patient is a 28-year-old male who is currently transitioning to female however has been out of any sort of hormone replacement for multiple months. Patient does not take any of his psychiatric meds such as bupropion. Patient is here with his partner who is also transgender. Per the partner, for the last 1.5 months, the patient has been declining. The patient no longer does anything. The patient is unable to hold a job, the patient is not bathing herself, is not eating or drinking less told. The partner noticed that the patient was researching on the computer of how to kill yourself with no pain. This made the partner uneasy and brought her here for evaluation. [facility] Medical History Anxiety Depression Home Medications bupropion HCl 300 mg 24 hr tablet, extended release 300 mg PO DAILY 06/03/23 [History Last Taken Unknown] Allergy/AdvReac Type Severity Reaction Status Date / Time No Known Allergies Allergy Verified 06/03/23 19:00 Social History Smoking Status: Current some day smoker tobacco type: cigarettes ROS ROS ED ROS Narrative Constitutional: Negative for fever, chills, weight loss, weakness Eyes: Negative for vision loss, vision change, double vision ENT: Negative for any sore throat, ear pain, congestion Cardiovascular: Negative for any chest pain, tightness, palpitations Respiratory: Negative for any cough, sputum production, hemoptysis, dyspnea, dyspnea on exertion, orthopnea Gastrointestinal: Negative for any abdominal pain, nausea, vomiting, diarrhea, constipation, blood in stool, blood in vomit : Negative for any urinary frequency, dysuria, retention, blood in urine Muscle skeletal: Negative for any neck pain, back pain Neurological: Negative for any headache, syncope, dizziness Skin: Negative for any rashes, itching, abrasions, lacerations Psychiatric: Negative for any homicidal ideation. Positive for depression, anxiety, suicidal ideation Hematologic: Negative for any excessive bruising, easy bleeding EXAM Physical Exam Narrative Exam Narrative: Vital signs reviewed. Patient appears disheveled, patient has poor eye contact, does stare different objects in the room, is a poor informant, not answering questions. Patient speaks very quietly, constantly saying that she does not know why this is happening to her. HEET: Head normocephalic atraumatic, TMs clear bilaterally. Posterior pharynx is clear, dry mucous membranes. Nares clear bilaterally. Neck: Supple with no lymphadenopathy or tenderness. No signs of meningismus. Cardiac: Regular rate and rhythm no murmurs gallops or rubs, equal peripheral pulses bilaterally. Respiratory: Lungs clear to auscultation bilaterally. No chest tenderness. Abdomen: Soft, nontender, nondistended. No abdominal bruit or pulsatile masses. No hepatosplenomegaly Extremities: No peripheral edema, no signs of gross trauma or deformity. Active full range of motion of all extremities. Neuro: Cranial nerves II through XII intact, no focal neurological deficits. Skin: Clean dry and intact with no rash, purpura, petechiae, vesicles or pustules. Backs/flank: No CVA tenderness, no midline spinal tenderness, no deformity. Psych: Normal mood and affect. No SI, HI or acute psychosis. Const Vital Signs: 06/03/23 19:00 06/03/23 21:28 Temperature 96.5 F L Temperature Source Temporal Pulse Rate 90 96 Respiratory Rate 18 18 Blood Pressure 115/80 105/74 Blood Pressure Mean 91 84 Pulse Ox 100 94 Oxygen Delivery Method Room Air Room Air Positive unkempt General Appearance ED: unkempt Psych Appearance: unkempt Physical Exam Const Vital Signs: 06/03/23 (more content not included)... Normal [facility] Erythrocyte distribution wid th ratioOrdered By: Kelton Jaramillo on 06-03-2023 Erythrocyte distribution width (RBC) [Ratio] 11.7 % 11.6-14.6 [facility] Erythrocyte distribution wid th standard deviationOrdered By: Kelton Jaramillo on 06-03-2023 Erythrocyte distribution width (RBC) [Entitic vol] 37.6 fL 35.1-43.9 [facility] Hematocrit Auto (Bld) [Volum e fraction]Ordered By: Kelton Jaramillo on 06-03-2023 Hematocrit (Bld) [Volume fraction] 51.3 % 40-54 [facility] Immature granulocytes/100 WB C Auto (Bld)Ordered By: Kelton Jaramillo on 06-03-2023 Immature granulocytes/100 WBC (Bld) 0.400 % 0.0-0.9 [facility] Comment on above: IG% - Immature Granu locytes (promyelocytes, myelocytes and metamyelocytes) > 1% indicates that a LEFT SHIFT is Present. Laboratory - Chemistry and C hemistry - challengeOrdered By: Kelton Jaramillo on 06-03-2023 CO2 [Moles/Vol] 26.0 mmol/L 21.0-32.0 [facility] Urea nitrogen/Creatinine [Mass ratio] 6.7 mg/mg 10-20 [facility] - Drug toxicology Ordered By: Kelton Jaramillo on 06-03-2023 Amphetamines Ql (U) Negative <1000 ng/mL [facility] Benzodiazepines Ql (U) Negative < 200 ng/mL [facility] Cannabinoids Screen Ql (U) Positive < 50 ng/mL [facility] Cocaine Ql (U) Negative < 300 ng/mL [facility] Opiates Ql (U) Negative < 300 ng/mL [facility] - Hematology and Cell countsOrdered By: Kelton Jaramillo on 06-03-2023 MCH (RBC) [Entitic mass] 29.5 pg 27.0-32.0 [facility] MCHC (RBC) [Mass/Vol] 33.1 g/dL 32-36 [facility] Nucleated RBC/100 WBC (Bld) [Ratio] 0 % 0-5 [facility] Platelet mean volume (Bld) [Entitic vol] 10.5 fL 6.2-12.0 [facility] Platelets (Bld) [#/Vol] 280 10*3/uL 150-450 [facility] No Panel InformationOrdered By: Kelton Jaramillo on 04-25-2024 Estimated Creatinine Clearance Calc 123.45 ml/min [facility] Estimated GFR (MDRD) Amer 107 mL/min >60 [facility] Comment on above: GFR Calc Estimated GFR (MDRD) Non-Af Amer 88 mL/min >60 [facility] Comment on above: Non- GFR Calc Ethyl Alcohol Level 4.0 mg/dL [facility] Comment on above: The serum:whole bloo d ethanol ratio is approximately 1.14and varies slightly with hematocrit. Medical Alcohol reference interval and critical value innon-tolerant individuals; 50 - 100 Impairment 100 Intoxication 100 - 250 Severe Poisoning 250 - 400 Deep/possible fatal coma MDMA (Ecstasy) Screen Negative < 500 ng/mL [facility] Urine Barbiturates Screen Negative < 200 ng/mL [facility] Urine Drug Screen Comment [facility] Comment on above: CONFIRMATORY TESTING FOR ALL POSITIVE URINE DRUG SCREENRESULTS WILL ONLY BE SENT OUT UPON PHYSICIAN ORDER. VISTA Urine Drug Screen methods provide only preliminaryanalytical test results. A more specific alternate chemicalmethod must be used in order to obtain a confirmedanalytical result. Gas chromatography/mass spectrometery(GC/MS) is the preferred confirmatory method. Clinicalconsideration and professional judgement should be appliedto any drug of abuse test result, particularly whenpreliminary positive results are used. URINE TCA TESTING MUST BE ORDERED SEPARATELY. USE TESTMNEMONIC: [facility] Urine Methadone Screen Negative < 300 ng/mL [facility] RBC Auto (Bld) [#/Vol]Ordere d By: Kelton Jaramillo on 06-03-2023 RBC (Bld) [#/Vol] 5.76 10*6/uL 4.6-6.2 [facility] Serum or plasma calcium karen urement (mass/volume)Ordered By: Kelton Jaramillo on 06-03-2023 Calcium [Mass/Vol] 9.3 mg/dL 8.5-10.1 [facility] Serum or plasma creatinine m easurement (mass/volume)Ordered By: Kelton Jaramillo on 06-03-2023 Creatinine [Mass/Vol] 1.05 mg/dL 0.70-1.30 [facility] Comment on above: The validity of the calculated GFR & GFRAA in patients over 70 years has not been determined. Clinical correlation is essential. Serum or plasma urea nitroge n measurement (mass/volume)Ordered By: Kelton Jaramillo on 06-03-2023 Urea nitrogen [Mass/Vol] 7 mg/dL 7-18 [facility] Thin prep Papanicolaou smear with manual screeningOrdered By: Kelton Jaramillo on 06-03-2023 Thin prep Papanicolaou smear with manual screening 7 5-15 [facility] Urine Drug Screen (VISTA)on 06-03-2023 AMPHETAMINES Negative Normal <1000 ng/mL [facility] Comment on above: Performed By: #### L 505.5000, L100.0100, L500.2500, L501.9100 #### [facility] [address] [facility] [address] BARBITIURATES Negative Normal < 200 ng/mL [facility] Comment on above: Performed By: #### L 505.5000, L100.0100, L500.2500, L501.9100 #### [facility] [address] [facility] [address] BENZODIAZIPINE Negative Normal < 200 ng/mL [facility] Comment on above: Performed By: #### L 505.5000, L100.0100, L500.2500, L501.9100 #### [facility] [address] [facility] [address] COCAINE Negative Normal < 300 ng/mL [facility] Comment on above: Performed By: #### L 505.5000, L100.0100, L500.2500, L501.9100 #### [facility] [address] [facility] [address] ECSTACY Negative Normal < 500 ng/mL [facility] Comment on above: Performed By: #### L 505.5000, L100.0100, L500.2500, L501.9100 #### [facility] [address] [facility] [address] METHADONE Negative Normal < 300 ng/mL [facility] Comment on above: Performed By: #### L 505.5000, L100.0100, L500.2500, L501.9100 #### [facility] [address] [place], [address] OPIATES Negative Normal < 300 ng/mL [facility] Comment on above: Performed By: #### L 505.5000, L100.0100, L500.2500, L501.9100 #### [facility] [address] [place], [address] PCP Negative Normal < 25 ng/mL [facility] Comment on above: Performed By: #### L 505.5000, L100.0100, L500.2500, L501.9100 #### [facility] [address] [place], [address] THC Positive Abnormal < 50 ng/mL [facility] Comment on above: Performed By: #### L 505.5000, L100.0100, L500.2500, L501.9100 #### [facility] [address] [place], [address] VISTA UDS PH 5 Normal [facility] Comment on above: Performed By: #### L 505.5000, L100.0100, L500.2500, L501.9100 #### [facility] [address] [place], [address] Urine phencyclidine (PCP) de tectionOrdered By: Kelton Jaramillo on 06-03-2023 Phencyclidine Ql (U) Negative < 25 ng/mL [facility] 36on 03-04-2023 36 Noted Normal [facility] 36 03/04/23 sarmad pugh, mailed letter to patient. Normal [facility] 36on 03-03-2023 36 03/03 called the patient, patients VM is full and can't leave a message , will try again this week. Normal [facility] 36 I got a refill reque st but I haven't seen her since 2021. I can refill for a short supply but she needs to come in for an appointment. Please get her scheduled and then let me know and I'll give a script bridging her until that appt. Thanks! Normal [facility] Alcohol, Blood (Medical)-Ser francoon 12-14-2022 SERUM ETOH < 3.0 Normal [facility] Comment on above: Result Comment: The serum:whole blood ethanol ratio is approximately 1.14 and varies slightly with hematocrit. Medical Alcohol reference interval and critical value in non-tolerant individuals; 50 - 100 Impairment 100 Intoxication 100 - 250 Severe Poisoning 250 - 400 Deep/possible fatal coma Performed By: #### L 501.9100, L100.0100, L500.2500, L505.5000 #### [facility] [address] [place], [address] Basic Metabolic Profile (BMP )on 12-14-2022 BUN/CRE 7.4 RATIO Low 10-20 [facility] Comment on above: Performed By: #### L 501.9100, L100.0100, L500.2500, L505.5000 #### [facility] [address] [place], [address] CA,Total 8.8 mg/dL Normal 8.5-10.1 [facility] Comment on above: Performed By: #### L 501.9100, L100.0100, L500.2500, L505.5000 #### [facility] [address] [place], [address] Chloride [Moles/Vol] 109 mmol/L High 98-107 [facility] Comment on above: Performed By: #### L 501.9100, L100.0100, L500.2500, L505.5000 #### [facility] [address] [place], [address] CO2 [Moles/Vol] 24.0 mmol/L Normal 21.0-32.0 [facility] Comment on above: Performed By: #### L 501.9100, L100.0100, L500.2500, L505.5000 #### [facility] [address] [place], [address] Creatinine [Mass/Vol] 0.95 mg/dL Normal 0.70-1.30 [facility] Comment on above: Result Comment: The validity of the calculated GFR GFRAA in patients over 70 years has not been determined. Clinical correlation is essential. Performed By: #### L 501.9100, L100.0100, L500.2500, L505.5000 #### [facility] [address] [place], [address] ECRCL 125.93 ml/min Normal [facility] Comment on above: Performed By: #### L 501.9100, L100.0100, L500.2500, L505.5000 #### [facility] [address] [place], [address] EST GFR - AA 120 mL/min Normal >60 [facility] Comment on above: Result Comment: Afri can Bahraini GFR Calc Performed By: #### L 501.9100, L100.0100, L500.2500, L505.5000 #### [facility] [address] [place], [address] GAP 6 Normal 5-15 [facility] Comment on above: Performed By: #### L 501.9100, L100.0100, L500.2500, L505.5000 #### [facility] [address] [place], [address] GFR/1.73 sq M.predicted among non-blacks MDRD (S/P/Bld) [Vol rate/Area] 99 mL/min/{1.73_m2} Normal >60 [facility] Comment on above: Result Comment: Non- GFR Calc Performed By: #### L 501.9100, L100.0100, L500.2500, L505.5000 #### [facility] [address] [place], [address] Glucose [Mass/Vol] 97 mg/dL Normal 74-106 [facility] Comment on above: Performed By: #### L 501.9100, L100.0100, L500.2500, L505.5000 #### [facility] [address] [place], [address] Potassium [Moles/Vol] 3.5 mmol/L Normal 3.5-5.1 [facility] Comment on above: Performed By: #### L 501.9100, L100.0100, L500.2500, L505.5000 #### [facility] [address] [place], [address] Sodium [Moles/Vol] 139 mmol/L Normal 136-145 [facility] Comment on above: Performed By: #### L 501.9100, L100.0100, L500.2500, L505.5000 #### [facility] [address] [place], [address] Urea nitrogen [Mass/Vol] 7 mg/dL Normal 7-18 [facility] Comment on above: Performed By: #### L 501.9100, L100.0100, L500.2500, L505.5000 #### [facility] [address] [place], [address] CBC W/Diff, Automatedon 11-0 6-2022 Absolute Lymph 2.00 X10 3/uL Normal 0.83-4.51 [facility] Comment on above: Performed By: #### L 501.9100, L100.0100, L500.2500, L505.5000 #### [facility] [address] [place], [address] Absolute Neut 5.2 X10 3/uL Normal 2.0-7.7 [facility] Comment on above: Performed By: #### L 501.9100, L100.0100, L500.2500, L505.5000 #### [facility] [address] [place], [address] Basophils/100 WBC (Bld) 0.5 % Normal 0-1 [facility] Comment on above: Performed By: #### L 501.9100, L100.0100, L500.2500, L505.5000 #### [facility] [address] [place], [address] Eosinophils/100 WBC (Bld) 2.1 % Normal 0-5 [facility] Comment on above: Performed By: #### L 501.9100, L100.0100, L500.2500, L505.5000 #### [facility] [address] [place], [address] Erythrocyte distribution width (RBC) [Ratio] 11.9 % Normal 11.6-14.6 [facility] Comment on above: Performed By: #### L 501.9100, L100.0100, L500.2500, L505.5000 #### [facility] [address] [place], [address] Hematocrit (Bld) [Volume fraction] 43.5 % Normal 40-54 [facility] Comment on above: Performed By: #### L 501.9100, L100.0100, L500.2500, L505.5000 #### [facility] [address] [place], [address] Hemoglobin (Bld) [Mass/Vol] 15.2 g/dL Normal 13.0-16.5 [facility] Comment on above: Performed By: #### L 501.9100, L100.0100, L500.2500, L505.5000 #### [facility] [address] [place], [address] IG% 0.300 Normal 0.0-0.9 [facility] Comment on above: Result Comment: IG% - Immature Granulocytes (promyelocytes, myelocytes and metamyelocytes) > 1% indicates that a LEFT SHIFT is Present. Performed By: #### L 501.9100, L100.0100, L500.2500, L505.5000 #### [facility] [address] [place], [address] Lymphocytes/100 WBC (Bld) 25.2 % Normal 19-41 [facility] Comment on above: Performed By: #### L 501.9100, L100.0100, L500.2500, L505.5000 #### [facility] [address] [place], [address] MCH (RBC) [Entitic mass] 31.2 pg Normal 27.0-32.0 [facility] Comment on above: Performed By: #### L 501.9100, L100.0100, L500.2500, L505.5000 #### [facility] [address] [place], [address] MCHC (RBC) [Mass/Vol] 34.9 g/dL Normal 32-36 [facility] Comment on above: Performed By: #### L 501.9100, L100.0100, L500.2500, L505.5000 #### [facility] [address] [place], [address] MCV (RBC) [Entitic vol] 89.3 fL Normal 80-94 [facility] Comment on above: Performed By: #### L 501.9100, L100.0100, L500.2500, L505.5000 #### [facility] [address] [place], [address] Monocytes/100 WBC (Bld) 6.8 % Normal 0-10 [facility] Comment on above: Performed By: #### L 501.9100, L100.0100, L500.2500, L505.5000 #### [facility] [address] [place], [address] Neutrophils/100 WBC (Bld) 65.1 % Normal 47-70 [facility] Comment on above: Performed By: #### L 501.9100, L100.0100, L500.2500, L505.5000 #### [facility] [address] [place], [address] Nucleated RBC (Bld) [#/Vol] 0 10*3/uL Normal 0-5 [facility] Comment on above: Performed By: #### L 501.9100, L100.0100, L500.2500, L505.5000 #### [facility] [address] [place], [address] Platelet mean volume (Bld) [Entitic vol] 10.3 fL Normal 6.2-12.0 [facility] Comment on above: Performed By: #### L 501.9100, L100.0100, L500.2500, L505.5000 #### [facility] [address] [place], [address] Platelets (Bld) [#/Vol] 281 10*3/uL Normal 150-450 [facility] Comment on above: Performed By: #### L 501.9100, L100.0100, L500.2500, L505.5000 #### [facility] [address] [place], [address] RBC (Bld) [#/Vol] 4.87 10*6/uL Normal 4.6-6.2 [facility] Comment on above: Performed By: #### L 501.9100, L100.0100, L500.2500, L505.5000 #### [facility] [address] [place], [address] RDW SD 38.5 fl Normal 35.1-43.9 [facility] Comment on above: Performed By: #### L 501.9100, L100.0100, L500.2500, L505.5000 #### [facility] [address] [place], [address] WBC (Bld) [#/Vol] 7.9 10*3/uL Normal 4.4-11.0 [facility] Comment on above: Performed By: #### L 501.9100, L100.0100, L500.2500, L505.5000 #### [facility] [address] [place], [address] COVID 19 AG RAPID (SOLA Rosario)on 12-14-2022 SARS-CoV-2 (COVID-19) RNA JASIEL+probe Ql (Unsp spec) *Negative results from patients with symptom onset beyond five days should be treated as presumptive and confirmed by a molecular assay if clinically necessary. Negative results should not be used as the sole basis for treatment or for patient management. SARS-CoV-2 Ag Resp Ql IA.rapid *Positive results do not differentiate between SARS-CoV and SARS-CoV-2. If differentiation of the specific SARS virus is desired an additional sample and an additional order is required. SARS-CoV-2 Ag Resp Ql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 60+ series) RSV Immunization aged 60 or older (1 - 1-dose 60+ series) [facility] Start: 05-10-2043 Zoster Vaccines (1 o f 2) Zoster Vaccines (1 of 2) [facility] Start: 10-15-2027 DTaP/Tdap/Td Vaccine s (6 - Td or Tdap) DTaP/Tdap/Td Vaccines (6 - Td or Tdap) [facility] Start: 10-15-2027 Urine microalbumin profile DTaP,Tdap,Td Vaccine (6 - Td or Tdap) [facility] Start: 10-09-2024 Influenza vaccination Influenz a Vaccine (Season Ended) [facility] Start: 07-18-2024 End: 07-18-2024 Patient encounter procedure 07/18/2024 3:00 PM EDT Office Visit [facility] [id number] [place] [id number] [place] [address] [place] [address] New gender care [facility] Comment on above: New gender care Start: 07-18-2024 End: 10-17-2024 Basic metabolic 2000 panel - Serum or Plasma BASIC METABOLIC PANEL Lab Routine Gender incongruence Expected: 07/18/2024, Expires: 10/17/2024 [facility] Work Phone: Comment on above: Expected: 07/18/2024 , Expires: 10/17/2024 Start: 07-18-2024 End: 10-17-2024 CBC W Auto Differential panel - Blood COMPLETE BLOOD COUNT AND DIFFERENTIAL Lab Routine Gender incongruence Expected: 07/18/2024, Expires: 10/17/2024 [facility] Comment on above: Expected: 07/18/2024 , Expires: 10/17/2024 Start: 07-18-2024 End: 10-17-2024 Lipid 1996 panel - Serum or Plasma LIPID PANEL, FASTING Lab Routine Gender incongruence Expected: 07/18/2024, Expires: 10/17/2024 [facility] Comment on above: Expected: 07/18/2024 , Expires: 10/17/2024 Start: 03-06-2024 End: 06-05-2024 Hemoglobin A1c in Blood HEMOGLOBIN A1C Lab Routine Screening for metabolic disorder Expected: 03/06/2024, Expires: 06/05/2024 [facility] Work Phone: Comment on above: Expected: 03/06/2024 , Expires: 06/05/2024 Start: 03-06-2024 End: 06-05-2024 Lipid 1996 panel - Serum or Plasma LIPID PANEL BASIC Lab Routine Screening for metabolic disorder Expected: 03/06/2024, Expires: 06/05/2024 [facility] Comment on above: Expected: 03/06/2024 , Expires: 06/05/2024 Start: 10-10-2023 Covid-19 Vaccine ( season) Covid-19 Vaccine ( season) [facility] Start: 10-10-2023 Influenza vaccination Influenza Vacc ine (#1) [facility] Start: 06-04-2023 [facility] Start: 06-03-2023 End: 06-03-2023 [facility] Start: 06-03-2023 Referral to service [facility] Start: 06-03-2023 Suicide precautions [facility] Start: 10-09-2022 Influenza vaccination Influenza Vacc ine (#1) [facility] Start: 05-10-2011 Anxiety Screening Anxiety Screening [facility] Start: 05-10-2011 Depression Screening Depression Scre ening [facility] Start: 05-10-2011 Hepatitis C screening Hepatitis C Sc nya [facility] Start: 05-10-2011 HIV screening HIV Screening [facility] Start: 01-17-2009 Varicella vaccination Varicell a Vaccines (1 of 2 - 2-dose childhood series) [facility] Start: 2005 Depresssion Monitoring Depresssion M onitoring [facility] Start: 1997 IPV Vaccines (4 of 4 - 4-dose series) IPV Vaccines (4 of 4 - 4-dose series) [facility] Start: 1993 COVID-19 Vaccine (#1) COVID-19 Vacci ne (#1) [facility] Start: 1993 HIV screening HIV Screening [facility] ministerio Patient Education ED Knee Sprain ED Patellar Dislocation/Subluxation [facility] Work Phone: Patient referral [facility] Work Phone: Immunizations Immunization Date Immunization Notes Care Provider Fa cili 10-14-2017 tetanus toxoid, redu samara diphtheria toxoid, and acellular pertussis vaccine, adsorbed Joesph Brown MD Work Phone: [facility] Work Phone: 11-28-2013 influenza, seasonal, injectable, preservative free Pradeep Calhoun MD Work Phone: [facility] 11-28-2013 influenza virus vacc ine, unspecified formulation Joesph Brown MD Work Phone: [facility] 11-30-2012 influenza, seasonal, injectable Pradeep Calhoun MD Work Phone: [facility] 12-20-2008 novel Influenza-H1N1 -09, live virus for nasal administration Pradeep Calhoun MD Work Phone: [facility] 08-27-1994 diphtheria, tetanus toxoids and acellular pertussis vaccine, unspecified formulation Pradeep Calhoun MD Work Phone: [facility] 08-27-1994 haemophilus influenz ae type b vaccine, conjugate unspecified formulation Pradeep Calhoun MD Work Phone: [facility] 08-27-1994 measles, mumps and rubella virus vaccine Pradeep Calhoun MD Work Phone: [facility] 04-23-1994 hepatitis B vaccine, pediatric or pediatric/adolescent dosage Pradeep Calhoun MD Work Phone: [facility] 1993 diphtheria, tetanus toxoids and pertussis vaccine Pradeep Calhoun MD Work Phone: [facility] 1993 haemophilus influenz ae type b vaccine, conjugate unspecified formulation Pradeep Calhoun MD Work Phone: [facility] 1993 poliovirus vaccine, unspecified formulation Joesph Brown MD Work Phone: [facility] 1993 diphtheria, tetanus toxoids and pertussis vaccine Pradeep Calhoun MD Work Phone: [facility] 1993 haemophilus influenz ae type b vaccine, conjugate unspecified formulation Pradeep Calhoun MD Work Phone: [facility] 1993 hepatitis B vaccine, pediatric or pediatric/adolescent dosage Pradeep Calhoun MD Work Phone: [facility] 1993 poliovirus vaccine, unspecified formulation Pradeep Calhoun MD Work Phone: [facility] 1993 diphtheria, tetanus toxoids and pertussis vaccine Pradeep Calhoun MD Work Phone: [facility] 1993 haemophilus influenz ae type b vaccine, conjugate unspecified formulation Pradeep Calhoun MD Work Phone: [facility] 1993 hepatitis B vaccine, pediatric or pediatric/adolescent dosage Pradeep Calhoun MD Work Phone: [facility] 1993 poliovirus vaccine, unspecified formulation Pradeep Calhoun MD Work Phone: [facility] Payers Date Payer Category Payer Self-pay [id number] 2022 Unknown [id number] 2019 Medicaid [id number] Private Health Insurance Private Health Insurance [facility] [id number] Unknown [id number] Unknown [id number] Unknown [id number] Social History Date Type Detail Facility Start: 08-11-2021 End: 06-03-2023 Tobacco smoking status NHIS Unknown if ever smoked [facility] Start: 1993 Sex Assigned At Male [facility] Tobacco smoking stat NHIS Never smoked tobacco [facility] Start: 01-28-2021 Alcohol intake Current drinker of alcohol (finding) [facility] Start: 01-28-2021 End: 03-06-2024 History of Social function [facility] Start: 01-28-2021 End: 03-06-2024 Tobacco use panel [facility] Start: 1993 Sex Assigned At Not on file [facility] Start: 11-28-2021 Gender identity [id number] transsexual (finding) [facility] Start: 03-06-2024 Tobacco smoking status NHIS Ex-smoker [facility] History of tobacco use Current smoker [facility] History of tobacco use Cigarette Smoker [facility] Start: 03-06-2024 Tobacco use and exposure Former smokeless tobacco user [facility] Start: 03-06-2024 End: 07-18-2024 Alcoholic beverage intake [facility] (1-10 0), lower number is lower risk 91 [facility] Start: 08-17-2022 Gender identity Identifies as female gender (finding) [facility] Do you belong to any clubs or organizations such as alevism groups, unions, fraternal or athletic groups, or school groups? No [facility] Are you now , , , , never or living with a partner? Living with partner [facility] How hard is it for y ou to pay for the very basics like food, housing, medical care, and heating Somewhat hard [facility] Do you feel stress - tense, restless, nervous, or anxious, or unable to sleep at night because your mind is troubled all the time - these days [OSQ] To some extent [facility] (I/We) worried wheth er (my/our) food would run out before (I/we) got money to buy more. Often true [facility] The food that (I/we) bought just didn't last, and (I/we) didn't have money to get more. Sometimes true [facility] Clinical Notes 03-03-2023 to 07-18-2024 Pradeep Calhoun MD - 07/18/2024 3:00 PM EDTTelephone Encounter - Dolly Noel - 04/10/2024 7:58 AM ESTTelephone Encounter - Dolly Noel - 04/10/2024 7:58 AM EST Note Date & Type Note Facility 07-18-2024 History of Presen t illness Narrative [facility]ISIT This Team Access Model visit is a virtual encounter. It required patient-provider interaction for the medical decision making as documented below. I have communicated my name and active licensure. The patient's identity and physical location were verified at the time of this visit. Either the patient or their legal dermatology sales representative has been informed of the risks and benefits of -- and alternatives to -- treatment through a remote evaluation and consents to proceed with the evaluation remotely. Recording using NOBOT software for draft documentation of the visit was discussed with the patient/authorized dermatology sales representative; all questions welcomed and answered. Patient/authorized dermatology sales representative agreed to proceed HISTORY REVIEWED (electronic chart updated): - medical history - medications - allergies Chris Dewitt is a 29-year-old with gender incongruence and MDD, presenting for an initial visit to discuss resuming hormone therapy. PCP: None MHP: None Gender Dysphoria: - Identified as transgender since childhood; began expressing gender identity in early 20s. - Previous hormone therapy included spironolactone 200 mg and estradiol 4 mg daily, last prescribed by Dr. Agustin Brown in late 2021. - Desires to resume hormone therapy. - Reports a history of multiple suicide attempts and psychiatric hospitalizations related to gender dysphoria. - No current mental health provider. - No current primary care provider. REVIEW OF SYSTEMS: Constitutional: (+) fatigue Psychiatric: (+) depressed mood All other ROS: negative As noted in HPI PHYSICAL EXAMINATION: VIDEO EXAM: (if done, performed via video enabled technology) GENERAL: alert and appropriate, in no distress and well-hydrated, well nourished SKIN: no rash noted HEAD: normocephalic, no abnormality or lesion noted EYES: no injection and visual acuity is grossly normal EARS: hearing grossly normal NOSE: external nose normal without rhinorrhea OROPHARYNX: moist mucus membranes NECK: Supple RESPIRATORY: breathing non-labored CHEST: equal chest rise with normal respiratory effort MSE: Blunted affect. Depressed mood. Logical and fluent speech. Well groomed and dressed. Latest Ref Rng 10/17/2021 Protein, Total 6.3 - 8.0 g/dL 6.5 Albumin 3.9 - 4.9 g/dL 4.0 Calcium 8.5 - 10.2 mg/dL 9.8 Bilirubin, Total 0.2 - 1.3 mg/dL 0.4 Alkaline Phosphatase 38 - 113 U/L 70 AST 14 - 40 U/L 17 ALT 10 - 54 U/L 22 Glucose 74 - 99 mg/dL 92 BUN 9 - 24 mg/dL 11 Creatinine 0.73 - 1.22 mg/dL 1.02 Sodium 136 - 144 mmol/L 137 Potassium 3.7 - 5.1 mmol/L 3.9 Chloride 97 - 105 mmol/L 103 CO2 22 - 30 mmol/L 23 Anion Gap 9 - 18 mmol/L 11 eGFR >=60 mL/min/1.73m 103 WBC 3.70 - 11.00 k/uL 10.66 RBC 4.20 - 6.00 m/uL 4.84 Hemoglobin 13.0 - 17.0 g/dL 14.5 Hematocrit 39.0 - 51.0 % 42.7 MCV 80.0 - 100.0 fL 88.2 MCH 26.0 - 34.0 pg 30.0 MCHC 30.5 - 36.0 g/dL 34.0 RDW-CV 11.5 - 15.0 % 11.9 Platelet Count 150 - 400 k/uL 289 MPV 9.0 - 12.7 fL 10.6 Absolute nRBC <0.01 k/uL <0.01 Testosterone Free 5.05 - 19.8 ng/dL 7.97 Testosterone 240 - 950 ng/dL 275 Estradiol 17B <38 pg/mL 68 (H) Hep C Antibody IA Negative Negative Legend: (H) High ASSESSMENT: Encounter Diagnosis ICD-10-CM 1. Recurrent major depressive disorder, remission status unspecified F33.9 2. Gender incongruence F64.9 BASIC METABOLIC PANEL COMPLETE BLOOD COUNT AND DIFFERENTIAL LIPID PANEL, FASTING PLAN: 1. Recurrent major depressive disorder, remission status unspecified (F33.9) - History of multiple suicide attempts and psychiatric hospitalizations. - Lacks a current mental health provider. - Discussed the importance of mental health support; will coordinate with primary care to establish a mental health provider. 2. Gender incongruence (F64.9) - Previous treatment with spironolactone 200 mg daily and estradiol 4 mg daily, last prescribed by Dr. Agustin Brown in late 2021. - Ordered laboratory tests to assess current hormonal status. - Scheduled an in-person physical examination prior to restarting hormone therapy to ensure major organ systems are functioning correctly. - Provided informed consent documentation via Wecash, detailing potential physical, emotional, and reproductive changes associated with hormone therapy. - Sent a Wecash message with questions to understand patient's gender journey, goals for hormone therapy, and any additional treatment desires. - Advised patient to schedule a follow-up appointment within the next three months or sooner to review lab results, discuss informed consent, and initiate hormone therapy. Medical Decision Making: Problems: Moderate: 1+ chronic illnesses with change Data: Unique test(s) ordered: 3+ Risk: Moderate: Drug management High: High risk from testing/treatment Medical Decision Making Level: 4 - Moderate Pradeep Calhoun MD, MPH Director - [facility] [employer] - Transgender Surgery and Medicine Program [facility] Internal Medicine and Geriatrics He/Him/They/Them documented in this encounter [facility] 07-18-2024 Note HNO ID: [id number] Author: PRADEEP CALHOUN MD Service: ? Author Type: Physician Type: Progress Notes Filed: 07/18/2024 15:45 Note Text: DISTANCE HEALTH VISIT This Team Access Model visit is a virtual encounter. It required patient-provider interaction for the medical decision making as documented below. I have communicated my name and active licensure. The patient's identity and physical location were verified at the time of this visit. Either the patient or their legal dermatology sales representative has been informed of the risks and benefits of -- and alternatives to -- treatment through a remote evaluation and consents to proceed with the evaluation remotely. Recording using NOBOT software for draft documentation of the visit was discussed with the patient/authorized dermatology sales representative; all questions welcomed and answered. Patient/authorized dermatology sales representative agreed to proceed HISTORY REVIEWED (electronic chart updated): - medical history - medications - allergies Chris Dewitt is a 29-year-old with gender incongruence and MDD, presenting for an initial visit to discuss resuming hormone therapy. PCP: None MHP: None Gender Dysphoria: - Identified as transgender since childhood; began expressing gender identity in early 20s. - Previous hormone therapy included spironolactone 200 mg and estradiol 4 mg daily, last prescribed by Dr. Agustin Brown in late 2021. - Desires to resume hormone therapy. - Reports a history of multiple suicide attempts and psychiatric hospitalizations related to gender dysphoria. - No current mental health provider. - No current primary care provider. REVIEW OF SYSTEMS: Constitutional: (+) fatigue Psychiatric: (+) depressed mood All other ROS: negative As noted in HPI PHYSICAL EXAMINATION: VIDEO EXAM: (if done, performed via video enabled technology) GENERAL: alert and appropriate, in no distress and well-hydrated, well nourished SKIN: no rash noted HEAD: normocephalic, no abnormality or lesion noted EYES: no injection and visual acuity is grossly normal EARS: hearing grossly normal NOSE: external nose normal without rhinorrhea OROPHARYNX: moist mucus membranes NECK: Supple RESPIRATORY: breathing non-labored CHEST: equal chest rise with normal respiratory effort MSE: Blunted affect. Depressed mood. Logical and fluent speech. Well groomed and dressed. Latest Ref Rng 10/17/2021 Protein, Total 6.3 - 8.0 g/dL 6.5 Albumin 3.9 - 4.9 g/dL 4.0 Calcium 8.5 - 10.2 mg/dL 9.8 Bilirubin, Total 0.2 - 1.3 mg/dL 0.4 Alkaline Phosphatase 38 - 113 U/L 70 AST 14 - 40 U/L 17 ALT 10 - 54 U/L 22 Glucose 74 - 99 mg/dL 92 BUN 9 - 24 mg/dL 11 Creatinine 0.73 - 1.22 mg/dL 1.02 Sodium 136 - 144 mmol/L 137 Potassium 3.7 - 5.1 mmol/L 3.9 Chloride 97 - 105 mmol/L 103 CO2 22 - 30 mmol/L 23 Anion Gap 9 - 18 mmol/L 11 eGFR >=60 mL/min/1.73m? 103 WBC 3.70 - 11.00 k/uL 10.66 RBC 4.20 - 6.00 m/uL 4.84 Hemoglobin 13.0 - 17.0 g/dL 14.5 Hematocrit 39.0 - 51.0 % 42.7 MCV 80.0 - 100.0 fL 88.2 MCH 26.0 - 34.0 pg 30.0 MCHC 30.5 - 36.0 g/dL 34.0 RDW-CV 11.5 - 15.0 % 11.9 Platelet Count 150 - 400 k/uL 289 MPV 9.0 - 12.7 fL 10.6 Absolute nRBC <0.01 k/uL <0.01 Testosterone Free 5.05 - 19.8 ng/dL 7.97 Testosterone 240 - 950 ng/dL 275 Estradiol 17B <38 pg/mL 68 (H) Hep C Antibody IA Negative Negative Legend: (H) High ASSESSMENT: Encounter Diagnosis ICD-10-CM 1. Recurrent major depressive disorder, remission status unspecified F33.9 2. Gender incongruence F64.9 BASIC METABOLIC PANEL COMPLETE BLOOD COUNT AND DIFFERENTIAL LIPID PANEL, FASTING PLAN: 1. Recurrent major depressive disorder, remission status unspecified (F33.9) - History of multiple suicide attempts and psychiatric hospitalizations. - Lacks a current mental health provider. - Discussed the importance of mental health support; will coordinate with primary care to establish a mental health provider. 2. Gender incongruence (F64.9) - Previous treatment with spironolactone 200 mg daily and estradiol 4 mg daily, last prescribed by Dr. Agustin Brown in late 2021. - Ordered laboratory tests to assess current hormonal status. - Scheduled an in-person physical examination prior to restarting hormone therapy to ensure major organ systems are functioning correctly. - Provided informed consent documentation via Wecash, detailing potential physical, emotional, and reproductive changes associated with hormone therapy. - Sent a Wecash message with questions to understand patient's gender journey, goals for hormone therapy, and any additional treatment desires. - Advised patient to schedule a follow-up appointment within the next three months or sooner to review lab results, discuss informed consent, and initiate hormone therapy. Medical Decision Making: Problems: Moderate: 1+ chronic illnesses with change Data: Unique test(s) ordered: 3+ Risk: Moderate: Drug john (more content not included)... [facility] 04-10-2024 Telephone encounter Note Called patient per below message. Left message to call office. Dolly Noel Per Roxanna Montejo - Due to a change in the provider's schedule, we will be changing your upcoming visit to a Virtual Visit. [facility] 04-10-2024 Miscellaneous Notes Called patient per below message. Left message to call office. Dolly Montejo - Due to a change in the provider's schedule, we will be changing your upcoming visit to a Virtual Visit. documented in this encounter [facility] 03-06-2024 Note HNO ID: [id number] Author: RITESH GARCIA, DO Service: ? Author Type: Physician Type: Progress Notes Filed: 03/23/2024 12:06 Note Text: Patient presents with: Yearly Exam Hormone Problem Depression Screening Never done Anxiety Screening Never done HIV Screening Never done Influenza Vaccine(1) due on 10/10/2023 Covid-19 Vaccine( season) Never done Last 3 Encounter BP Readings: Date: BP: 03/06/2024 107/70 No results found for: LDL HBA1C: No results found for: HBA1C No results found for: UALBCR, UPROT, UCR, UCRR, UALB Diabetic Foot and Retinal Eye Exam not Overdue 28 year old adult presenting for follow up I have fully reviewed the past medical, surgical, social and family history and updated the Histories section of [facility]. Experiencing reflux symptoms Has not tried ppi No wt loss blood in stool abd pain No red flag symptoms Would like labs checked as well Current Outpatient Medications on File Prior to Visit: Current Outpatient Medications Medication Sig Dispense Refill ARIPiprazole (ABILIFY) 2 mg tablet estradiol (ESTRACE) 2 mg tablet Take 4 mg by mouth. spironolactone (ALDACTONE) 100 mg tablet Take 200 mg by mouth. citalopram (CELEXA) 20 mg tablet No current facility-administered medications for this visit. ALLERGIES Not on File History reviewed. No pertinent surgical history. Social history reviewed in [facility]. REVIEW OF SYSTEMS: Constitutional: Denies fever, denies chills, denies fatigue Head: Denies headache Eyes: Denies changes in vision or blurry vision Ears/Nose/Throat: Denies sore throat, denies rhinorrhea Musculoskeletal: Denies joint pain, denies myalgias Abd: No abd pain, no vomiting, no diarrhea, no nausea Skin/Breast: Denies rash or lesions Cardiovascular: Denies chest pain, denies palpitations, denies LE edema Respiratory: Denies cough, denies SOB, denies wheezing Neurological: Denies numbness, denies tingling, denies weakness PHYSICAL EXAMINATION: General appearance: nad Skin: no suspicious rashes or lesions Head: Normocephalic, atraumatic Eyes: Anicteric sclera Nose/Sinuses: Nares normal Oropharynx: Mucosa moist Neck: Supple Lungs: Lungs clear to auscultation. No wheezing, rhonchi, rales. Heart: RRR without murmur, gallop, or rubs. Abdomen: Normal abdominal exam, Abdomen soft, non-tender. No masses Extremities: No deformities, no edema, no cyanosis. Musculoskeletal: No joint swelling, no deformity Neuro: Speech intact ASSESSMENT/PLAN: 1. Gastroesophageal reflux disease with esophagitis without hemorrhage - ICD9: 530.81, 530.10, ICD10: K21.00 (primary diagnosis) - Discussed lifestyle modifications including - PANTOPRAZOLE 40 MG TABLET,DELAYED RELEASE 2. Screening for metabolic disorder - ICD9: V77.99, ICD10: Z13.228 - HEMOGLOBIN A1C - LIPID PANEL BASIC GERD symptoms ppi trial follow up if persists Check labs Discussed with patient red flag symptoms. Discussed risks and benefits of treatment plan. Pt understands to seek appropriate evaluation for new or worsening symptoms. Patient understands and agrees with plan, all concerns and questions addressed. [facility] 03-06-2024 History of Presen t illness Narrative Patient presents with: Yearly Exam Hormone Problem Depression Screening Never done Anxiety Screening Never done HIV Screening Never done Influenza Vaccine(1) due on 10/10/2023 Covid-19 Vaccine(2023- season) Never done Last 3 Encounter BP Readings: Date: BP: 03/06/2024 107/70 No results found for: LDL HBA1C: No results found for: HBA1C No results found for: UALBCR, UPROT, UCR, UCRR, UALB Diabetic Foot and Retinal Eye Exam not Overdue 28 year old adult presenting for follow up I have fully reviewed the past medical, surgical, social and family history and updated the Histories section of [facility]. Experiencing reflux symptoms Has not tried ppi No wt loss blood in stool abd pain No red flag symptoms Would like labs checked as well Current Outpatient Medications on File Prior to Visit: Current Outpatient Medications Medication Sig Dispense Refill ARIPiprazole (ABILIFY) 2 mg tablet estradiol (ESTRACE) 2 mg tablet Take 4 mg by mouth. spironolactone (ALDACTONE) 100 mg tablet Take 200 mg by mouth. citalopram (CELEXA) 20 mg tablet No current facility-administered medications for this visit. ALLERGIES Not on File History reviewed. No pertinent surgical history. Social history reviewed in [facility]. REVIEW OF SYSTEMS: Constitutional: Denies fever, denies chills, denies fatigue Head: Denies headache Eyes: Denies changes in vision or blurry vision Ears/Nose/Throat: Denies sore throat, denies rhinorrhea Musculoskeletal: Denies joint pain, denies myalgias Abd: No abd pain, no vomiting, no diarrhea, no nausea Skin/Breast: Denies rash or lesions Cardiovascular: Denies chest pain, denies palpitations, denies LE edema Respiratory: Denies cough, denies SOB, denies wheezing Neurological: Denies numbness, denies tingling, denies weakness PHYSICAL EXAMINATION: General appearance: nad Skin: no suspicious rashes or lesions Head: Normocephalic, atraumatic Eyes: Anicteric sclera Nose/Sinuses: Nares normal Oropharynx: Mucosa moist Neck: Supple Lungs: Lungs clear to auscultation. No wheezing, rhonchi, rales. Heart: RRR without murmur, gallop, or rubs. Abdomen: Normal abdominal exam, Abdomen soft, non-tender. No masses Extremities: No deformities, no edema, no cyanosis. Musculoskeletal: No joint swelling, no deformity Neuro: Speech intact ASSESSMENT/PLAN: 1. Gastroesophageal reflux disease with esophagitis without hemorrhage - ICD9: 530.81, 530.10, ICD10: K21.00 (primary diagnosis) - Discussed lifestyle modifications including - PANTOPRAZOLE 40 MG TABLET,DELAYED RELEASE 2. Screening for metabolic disorder - ICD9: V77.99, ICD10: Z13.228 - HEMOGLOBIN A1C - LIPID PANEL BASIC GERD symptoms ppi trial follow up if persists Check labs Discussed with patient red flag symptoms. Discussed risks and benefits of treatment plan. Pt understands to seek appropriate evaluation for new or worsening symptoms. Patient understands and agrees with plan, all concerns and questions addressed. documented in this encounter [facility] 06-04-2023 Discharge summary Note Date/Time June 03, 2023 8:26pm [facility] Medical Records Department [address] [place] [id number] Emergency Department Summary 06/03/23 MR#: [id number] Acct: [id number] Name: MYRON DEWITT Rep #:[id number] : 1995 28 From: Alvaro YADAV PCP: Care Physician,No Primary Status :REG ER Location: ED ADDENDUM by Dr. Armin Palmer MD on 06/04/23 at 0146 Patient endorsed to me by Dr. Husam Jaramillo to make final disposition on this patient that it is being evaluated by crisis. He was informed that the patient has been accepted at [facility] in [place] and is currently awaiting transfer. Patient has been stable throughout emergency department course thus far and has not required any medications except for nicotine patch. Dispositionis transferred to a psychiatric facility in stable condition. 06/04/23 0146<Electronically signed by Armin Palmer MD> Cosigner Signature (if applicable): 06/03/23 2582 <Electronically signed by Alejandro REYNA> cc: No Primary Care Physician ~* Signed HPI <LEIF Hollingsworth - Last Filed: 04/25/24 21:44> History of Present Illness Chief Complaint: Suicidal Narrative Narrative: Patient is a 28-year-old male who is currently transitioning to female however has been out of any sort of hormone replacement for multiple months. Patient does not take any of his psychiatric meds such as bupropion. Patient is here with his partner who is also transgender. Per the partner, for the last 1.5 months, the patient has been declining. The patient no longer does anything. The patient is unable to hold a job, the patient is not bathing herself, is not eating or drinking less told. The partner noticed that the patient was researching on the computer of how to kill yourself with no pain. This made thepartner uneasy and brought her here for evaluation. [facility] <LEIF Hollingsworth - Last Filed: 06/03/23 21:44> [facility] Medical History Anxiety Depression Home Medications bupropion HCl 300 mg 24 hr tablet, extended release 300 mg PO DAILY 06/03/23 [History Last Taken Unknown] Allergy/AdvReac Type Severity Reaction Status Date / Time No Known Allergies Allergy Verified 06/03/23 19:00 Social History Smoking Status: Current some day smoker tobacco type: cigarettes ROS <LEIF Hollingsworth - Last Filed: 06/03/23 21:44> ROS ED ROS Narrative Constitutional: Negative for fever, chills, weight loss, weakness Eyes: Negative for vision loss, vision change, double vision ENT: Negative for any sore throat, ear pain, congestion Cardiovascular: Negative for any chest pain, tightness, palpitations Respiratory: Negative for any cough, sputum production, hemoptysis, dyspnea, dyspnea on exertion, orthopnea Gastrointestinal: Negative for any abdominal pain, nausea, vomiting, diarrhea, constipation, blood in stool, blood in vomit : Negative for any urinary frequency, dysuria, retention, blood in urine Muscle skeletal: Negative for any neck pain, back pain Neurological: Negative for any headache, syncope, dizziness Skin: Negative for any rashes, itching, abrasions, lacerations Psychiatric: Negative for any homicidal ideation. Positive for depression, anxiety, suicidal ideation Hematologic: Negative for any excessive bruising, easy bleeding EXAM <LEIF Hollingsworth - Last Filed: 06/03/23 21:44> Physical Exam Narrative Exam Narrative: Vital signs reviewed. Patient appears disheveled, patient has poor eye contact, does stare different objects in the room, is a poor informant, not answering questions. Patient speaks very quietly, constantly saying that she does not know why this is happening to her. HEET: Head normocephalic atraumatic, TMs clear bilaterally. Posterior pharynx is clear, dry mucous membranes. Nares clear bilaterally. Neck: Supple with no lymphadenopathy or tenderness. No signs of meningismus. Cardiac: Regular rate and rhythm no murmurs gallops or rubs, equal peripheral pulses bilaterally. Respiratory: Lungs clear to auscultation bilaterally. No chest tenderness. Abdomen: Soft, nontender, nondistended. No abdominal bruit or pulsatile masses. No hepatosplenomegaly Extremities: No peripheral edema, no signs of gross trauma or deformity. Activefull range of motion of all extremities. Neuro: Cranial nerves II through XII intact, no focal neurological deficits. Skin: Clean dry and intact with no rash, purpura, petechiae, vesicles or pustules. Backs/flank: No CVA tenderness, no midline spinal tenderness, no deformity. Psych: Normal mood and affect. No SI, HI or acute psychosis. Const Vital Signs: 06/03/23 19:00 06/03/23 21:28 Temperature 96.5 F L Temperature Source Temporal Pulse Rate 90 96 Respiratory Rate 18 18 Blood Pressure 115/80 105/74 Blood Pressure Mean 91 84 Pulse Ox 100 94 Oxygen Delivery Method Room Air Room Air Positive unkempt General Appearance ED: unkempt Psych Appearance: unkempt <Dr. Kelton Jaramillo MD - Last Filed: 06/03/23 21:39> Physical Exam Const Vital Signs: 06/03/23 19:00 06/03/23 21:28 Temperature 96.5 F L Temperature Source Temporal Pulse Rate 90 96 Respiratory Rate 18 18 Blood Pressure 115/80 105/74 Blood Pressure Mean 91 84 Pulse Ox 100 94 Oxygen Delivery Method Room Air Room Air MDM <LEIF Hollingsworth - Last Filed: 06/03/23 21:44> MDM Lab Data Labs: Laboratory Results - last 24 hr 06/03/23 20:40 WBC 10.5 RBC 5.76 Hgb 17.0 H Hct 51.3 MCV 89.1 MCH 29.5 MCHC 33.1 RDW Std Deviation 37.6 RDW Coeff of Sawyer 11.7 Plt Count 280 MPV 10.5 Immature Gran % (Auto) 0.400 Neut % (Auto) 65.7 Lymph % (Auto) 25.5 [place] % (Auto) 6.3 Eos % (Auto) 1.4 Baso % (Auto) 0.7 Absolute Neuts (auto) 6.9 Absolute Lymphs (auto) 2.68 Nucleated RBC % 0 Sodium 136 Potassium 3.8 Chloride 103 Carbon Dioxide 26.0 Anion Gap 7 BUN 7 Creatinine 1.05 Estim Creat Clear Calc 123.45 Est GFR (MDRD) Af Amer 107 Est GFR (MDRD) Non-Af 88 BUN/Creatinine Ratio 6.7 L Glucose 89 Calcium 9.3 Urine Opiates Screen NEGATIVE Urine Methadone Screen NEGATIVE Ur Barbiturates Screen NEGATIVE Ur Phencyclidine Scrn NEGATIVE Ur Amphetamines Screen NEGATIVE MDMA (Ecstasy) Screen NEGATIVE U Benzodiazepines Scrn NEGATIVE Urine Cocaine Screen NEGATIVE U Cannabinoids Screen POSITIVE H Ur Drug Screen Comment Ethyl Alcohol 4.0 Treatment and Re-Evaluation :: Differential diagnosis includes however is not limited to: Chronic anxiety, suicidal, psychosis, failure to thrive Patient is in no respiratory distress vital signs are stable patient presents [facility] emergency department for suicidal ideation, inability to care for herself. Patient is again a male that is transitioning female however is not had any hormone replacement multiple months. Patient has the visual look of a male. Patient was withdrawn, poor eye contact, patient did not admit to being suicidalhowever patient is not forthcoming with information, constantly says I do not know, just looks away and does not answer. Patient's partner states that the patient has been researching ways to kill oneself without pain, the patient doesnot been on any of her psychiatric meds because the patient does not want to take them. The patient appears disheveled, looks like she cannot care for herself, she is unable to even have a conversation.At this time, patient will receive basic laboratory values including a drug screen. Per the patient's partner, they only smoke marijuana rarely. Patient will be pink slipped. I believe the patient needs to be worked up with crisis and placed in the psychiatric unit for follow-up. Patient CBC was unremarkable, chemistries was unremarkable. Patient was positive for marijuana. Alcohol level was negative. Patient did follow-up withcrisis who went into the room to talk to her. Currently waiting on their assessment. Patient will be given hydroxyzine for anxiety, currently waiting for placement. <Dr. Kelton Jaramillo MD - Last Filed: 06/03/23 21:39> [facility] Narrative Medical decision making narrative: I have personally performed a face to face assessment of the patient and have reviewed the DARRYL Note. I performed a substantive portion of the visit including all aspects of the following. My more findings include: History is [28-year-old biological male [id number] female. History of depression. More depressed and suicidal. No specific plan. No prior attempt. Prior mental health hospitalizations. Accompanied by patient's significant other.] Exam is [well-appearing 28-year-old biological male vital signs stable afebrile. No distress. No signs of toxidrome. No smell of alcohol. HEENT exam unremarkable. Neck nontender. No trauma. Lungs clear to auscultation. Heart regular rhythm no murmur rate about 90. Chest wall and ribs nontender. Abdomen soft nontender. Moving all 4 extremities. Nontender no edema no cords. No lacerations or trauma. 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 Normal dorsi plantarflexion. Back nontender. Neurologically awake and alert. Answering questions following commands.] Medical Decision Making [28-year-old biological male transitioning to female with depression and suicidal ideation. Patient is medically cleared. Labs are unremarkable other than positive for cannabis. Awaiting crisis evaluation for either discharge or mental health transfer. Patient be turned over to the overnight physician.] Other additions or changes: [None] History & Record Review Discussion w/independent historian: Patient and Significant other Lab Data Attestation: I reviewed the patient's lab results. Lab results narrative: CBC unremarkable. White count of 10. H&H is 17 and 51. Platelets 280. Electrolytes unremarkable gap 7. Normal BUN and creatinine. Glucose 89. Talk screen positive for cannabis only. Alcohol negative. Labs: Laboratory Results - last 24 hr 06/03/23 20:40 WBC 10.5 RBC 5.76 Hgb 17.0 H Hct 51.3 MCV 89.1 MCH 29.5 MCHC 33.1 RDW Std Deviation 37.6 RDW Coeff of Sawyer 11.7 Plt Count 280 MPV 10.5 Immature Gran % (Auto) 0.400 Neut % (Auto) 65.7 Lymph % (Auto) 25.5 [place] % (Auto) 6.3 Eos % (Auto) 1.4 Baso % (Auto) 0.7 Absolute Neuts (auto) 6.9 Absolute Lymphs (auto) 2.68 Nucleated RBC % 0 Sodium 136 Potassium 3.8 Chloride 103 Carbon Dioxide 26.0 Anion Gap 7 BUN 7 Creatinine 1.05 Estim Creat Clear Calc 123.45 Est GFR (MDRD) Af Amer 107 Est GFR (MDRD) Non-Af 88 BUN/Creatinine Ratio 6.7 L Glucose 89 Calcium 9.3 Urine Opiates Screen NEGATIVE Urine Methadone Screen NEGATIVE Ur Barbiturates Screen NEGATIVE Ur Phencyclidine Scrn NEGATIVE Ur Amphetamines Screen NEGATIVE MDMA (Ecstasy) Screen NEGATIVE U Benzodiazepines Scrn NEGATIVE Urine Cocaine Screen NEGATIVE U Cannabinoids Screen POSITIVE H Ur Drug Screen Comment Ethyl Alcohol 4.0 Discharge Plan Triage Chief Complaint: Suicidal ED Midlevel Provider: Alvaro Delacruz ED Provider: Kelton Jaramillo Dx/Rx/DC Orders Clinical Impression: Depression with suicidal ideation, Depression Prescriptions: No Action bupropion HCl 300 mg tablet extended release 24 hr 300 mg PO DAILY Patient Comments: taking inconsisently Primary Care Provider: Care Physician,No Primary Referrals: Care Physician,No Primary [Primary Care Provider] - What to do if you have Problems For any increased pain, shortness of breath, bleeding, nausea or vomiting, chestpain, or any unexpected problems, contact your Primary Care Provider. Call [facility] ([phone]) or report to the closest Emergency Room. Call 911 if necessary. 06/03/232143 <Electronically signed by Alvaro Delacruz RESERVATION MANAGER-C> Cosigner Signature (if applicable): 06/03/232241 <Electronically signed by Kelton Jaramillo MD> CC: No Primary Care Physician ~ Signed [facility] Work Phone: [phone] 976-127501-25-2024 Telephone encounter Note* Telephone Encounter - Joesph Brown MD - 03/04/2023 4:23 PM EST Noted [id number] Miscellaneous Notes* Telephone Encounter - Joesph Brown MD - 03/04/2023 4:23 PM EST Noted * Telephone Encounter - Valeria Potts - 03/04/2023 4:20 PM EST 03/04/23 vm still full, mailed letter to patient. * Telephone Encounter - Charlotte Guzman - 03/03/2023 4:23 PM EST 03/03 called the patient, patients VM is full and can't leave a message , will try again this week. * Telephone Encounter - Joesph Brown MD - 03/03/2023 2:57 PM EST I got a refill request but I haven't seen her since 2021. I can refill for a short supply but she needs to come in for an appointment. Please get her scheduled and then let me know and I'll give a script bridging her until that appt. Thanks! documented in this encounterSBethesda North [id number] Telephone encounter Note* Telephone Encounter - Valeria Potts - 03/04/2023 4:20 PM EST 03/04/23 vm still full, mailed letter to patient. [facility] [id number] Telephone encounter Note* Telephone Encounter - Charlotte Guzman - 03/03/2023 4:23 PM EST 03/03 called the patient, patients VM is full and can't leave a message , will try again this week. [id number] Telephone encounter Note* Telephone Encounter - Joesph Brown MD - 03/03/2023 2:57 PM EST I got a refill request but I haven't seen her since 2021. I can refill for a short supply but she needs to come in for an appointment. Please get her scheduled and then let me know and I'll give a script bridging her until that appt. Thanks! [facility] CenterEvaluation noteNo assessment information availableWParkview Health Work Phone: Evaluation note* Diagnosis Gastroesophageal reflux disease with esophagitis without hemorrhage- Primary Screening for metabolic disorder [facility] Diagnosis Recurrent major depressive disorder, remission status unspecified- Primary Gender incongruence documented in this encounter [facility] Summary Purpose Family History No Family History Records FoundNo Family History Records FoundNo Family History Records FoundNo Family History Records FoundNo Family History Records FoundNo Family History Records FoundNo Family History Records Found Advance Directives No Advanced Directives Records Found Advance Directive Response Recorded Date/ Time Living Will No August 11, 2021 1 1:42pm Power of [employer] No August 11, 2021 11:42pm Advance Directive Response Recorded Date/ Time Living Will No June 03, 2023 9:32pm Power of [employer] No June 02 9:32pm Chief Complaint and Reason for Visit Chief Complaint left knee injury Chief Complaint si Additional Source Comments (unrecognized sect ion and content) No Status Records FoundNo Status Records FoundNo Status Records FoundNo Status Records FoundNo Status Records FoundNo Status Records FoundNo Status Records Found INFORMATION SOURCE (unrecogn ized section and content) DATE CREATED AUTHOR 09/30/2017 [facility] DATE CREATED AUTHOR AUTHOR'S ORGANIZ ATION 11/18/2017 [facility] DATE CREATED AUTHOR AUTHOR'S ORGANIZ ATION 07/12/2019 [facility] ([place]) DATE CREATED AUTHOR AUTHOR'S ORGANIZ ATION 08/26/2022 [facility] DATE CREATED AUTHOR AUTHOR'S ORGANIZ ATION 03/05/2023 [facility] DATE CREATED AUTHOR AUTHOR'S ORGANIZ ATION 07/16/2023 [facility] DATE CREATED AUTHOR AUTHOR'S ORGANIZ ATION 08/04/2024 [facility] Goals (unrecognized section and content) Goals may be documented in a n alternate sectionGoals may be documented in an alternate section Reason for Visit (unrecogniz ed section and content) Reason Onset Date Comments Appointment Request 03/03/2023 Reason Comments Yearly Exam Hormone Problem Reason Comments [facility] Care Teams (unrecognized sec tion and content) 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 Kelton Jaramillo MD Emergency Provider Active Source Comments (unrecognize d section and content) In the event this informatio n is protected by the Federal Confidentiality of Alcohol and Drug Abuse Patient Records regulations: The Federal rules restrict any use of the information to criminally investigate or prosecute any alcohol or drug abuse patient.[facility] CenterIn the event this information is protected by the Federal Confidentiality of Alcohol and Drug Abuse Patient Records regulations: The Federal rules restrict any use of the information to criminally investigate or prosecute any alcohol or drug abuse patient.[facility] CenterIn the event this information is protected by the Federal Confidentiality of Alcohol and Drug Abuse Patient Records regulations: The Federal rules restrict any use of the information to criminally investigate or prosecute any alcohol or drug abuse patient.[facility] CenterIn the event this information is protected by the Federal Confidentiality of Alcohol and Drug Abuse Patient Records regulations: The Federal rules restrict any use of the information to criminally investigate or prosecute any alcohol or drug abuse patient.[facility] FOR RECORDS PERTAINING TO PATIENTS WHO ARE OR HAVE BEEN ENROLLED IN A CHEMICAL DEPENDENCY/SUBSTANCEABUSE PROGRAM, SOME INFORMATION MAY BE OMITTED. This clinical summary was aggregated from multiple sources. Caution should be exercised in using it in the provision of clinical care. This summary normalizes information from multiple sources, and as a consequence, information in this document may materially change the coding, format and clinical context of patient data. In addition, data may be omitted in some cases. CLINICAL DECISIONS SHOULD BE BASED ON THE PRIMARY CLINICAL RECORDS. [facility] [employer] [facility]. provides no warranty or guarantee of the accuracy or completeness of information in this document.
== END 2024-08-21 05:28 | disposition left against medical advice (07) ==
LOC: ED 05:33
PROVIDERS: PCP Internal Medicine Adolescent Medicine
DX: K08.89 Other specified disorders of teeth and supporting structures (principal); Z53.21 Procedure and treatment not carried out due to patient leaving prior to being seen by health care provider
CPT/HCPCS: 99281

== ENCOUNTER 2024-08-23 01:53 | Emergency (ER) | payer MEDICAID, SELFPAY ==
[2024-08-23 01:53] VITALS: BP 125/77; PULSE 100; RESP 16; TEMP 37; O2SAT 96; BMI 29.3
[2024-08-23] MEDS: Lidocaine 2% /Epi 1:100 (20ml) 20 ML VIAL INFILT (02:16)
--- OUTSIDE RECORDS SUMMARY | 2024-08-23 02:20 | XMS RPT_ITS | CCD ---
Author Organization [facility] Team Providers Care Valet Runner Name Role Phone PROVIDER, UNKNOWN Unavailable Unavailable [...] Anion gap [Moles/Vol] 14 mmol/L Normal 8-15 [facility] Comment on above: Order Comment: Speci men Type: BLOOD SPECIMEN Ordering Facility: [facility] Address: [address] [place] [address] Performed By: #### 2 4321-2 #### [facility] CLIA [id number] [address] [place] [address] [place] Calcium [Mass/Vol] 9.9 mg/dL Normal 8.5-10.2 [facility] Comment on above: Order Comment: Speci men Type: BLOOD SPECIMEN Ordering Facility: [facility] Address: [address] [place] [address] Performed By: #### 2 4321-2 #### [facility] CLIA [id number] [address] [place] [address] [place] Chloride [Moles/Vol] 104 mmol/L Normal 98-107 [facility] Comment on above: Order Comment: Speci men Type: BLOOD SPECIMEN Ordering Facility: [facility] Address: [address] [place] [address] Performed By: #### 2 4321-2 #### [facility] CLIA [id number] [address] [place] [address] [place] CO2 [Moles/Vol] 18 mmol/L Low 22-30 [facility] Comment on above: Order Comment: Speci men Type: BLOOD SPECIMEN Ordering Facility: [facility] Address: [address] [place] [address] Performed By: #### 2 4321-2 #### [facility] CLIA [id number] [address] [place] [address] [place] Creatinine [Mass/Vol] 0.84 mg/dL Normal 0.73-1.22 [facility] Comment on above: Order Comment: Torri stinson Type: BLOOD SPECIMEN Ordering Facility: [facility] Address: [address] [place] [address] Performed By: #### 2 4321-2 #### [id number] [address] [place] [address] OF [facility] Creatinine and Glomerular filtration rate.predicted panel (S/P/Bld) 120 mL/min/1.73m??? Normal >=60 [facility] Comment on above: Order Comment: Torri stinson Type: BLOOD SPECIMEN Ordering Facility: [facility] Address: [address] [place] [address] Result Comment: Lilibeth mated Glomerular Filtration Rate [...] GFR. Performed By: #### 2 4321-2 #### [facility] [id number] [address] [place] [address] [place] Glucose [Mass/Vol] 106 mg/dL High 74-99 [facility] Comment on above: Order Comment: Torri stinson Type: BLOOD SPECIMEN Ordering Facility: [facility] Address: [address] [place] [address] Result Comment: The [place] Diabetes Association (ADA) provides guidance for cutoff [...] Standards of Medical Care in Diabetes 2016, [place] [employer]. Diabetes Care. 2016.39(Suppl 1). Performed By: #### 2 4321-2 #### [facility] [id number] [address] [place] [address] [place] Potassium [Moles/Vol] 3.8 mmol/L Normal 3.7-5.1 [facility] Comment on above: Order Comment: Speci men Type: BLOOD SPECIMEN Ordering Facility: [facility] Address: [address] [place] [address] Performed By: #### 2 4321-2 #### [facility] [id number] [address] [place] [address] [place] Sodium [Moles/Vol] 136 mmol/L Normal 136-144 [facility] Comment on above: Order Comment: Yurii men Type: BLOOD SPECIMEN Ordering Facility: [facility] Address: [address] [place] [address] Performed By: #### 2 4321-2 #### [facility] [id number] [address] [place] [address] [place] Urea nitrogen [Mass/Vol] 6 mg/dL Low 9-24 [facility] Comment on above: Order Comment: Speci men Type: BLOOD SPECIMEN Ordering Facility: [facility] Address: [address] [place] [address] Performed By: #### 2 4321-2 #### [facility] [id number] [address] [place] [address] [place] CBC W Auto Differential pane l (Bld)on 08-03-2024 Basophils (Bld) [#/Vol] 0.06 10*3/uL Normal <0.11 [facility] Comment on above: Order Comment: Speci men Type: BLOOD SPECIMEN Ordering Facility: [facility] Address: [address] [place] [address] Performed By: #### 5 7021-8 #### [facility] CLIA [id number] [address] [place] [address] [place] Basophils/100 WBC (Bld) 0.7 % Normal [facility] Comment on above: Order Comment: Speci men Type: BLOOD SPECIMEN Ordering Facility: [facility] Address: [address] [place] [address] Performed By: #### 5 7021-8 #### [facility] CLIA [id number] [address] [place] [address] [place] Differential cell count method Nom (Bld) Auto Normal [facility] Comment on above: Order Comment: Speci men Type: BLOOD SPECIMEN Ordering Facility: [facility] Address: [address] [place] [address] Performed By: #### 5 7021-8 #### [facility] CLIA [id number] [address] [place] [address] [place] Eosinophils (Bld) [#/Vol] 0.19 10*3/uL Normal <0.46 [facility] Comment on above: Order Comment: Speci men Type: BLOOD SPECIMEN Ordering Facility: [facility] Address: [address] [place] [address] Performed By: #### 5 7021-8 #### [facility] CLIA [id number] [address] [place] [address] [place] Eosinophils/100 WBC (Bld) 2.3 % Normal [facility] Comment on above: Order Comment: Speci men Type: BLOOD SPECIMEN Ordering Facility: [facility] Address: [address] [place] [address] Performed By: #### 5 7021-8 #### [facility] CLIA [id number] [address] [place] [address] [place] Erythrocyte distribution width (RBC) [Ratio] 11.9 % Normal 11.5-15.0 [facility] Comment on above: Order Comment: Speci men Type: BLOOD SPECIMEN Ordering Facility: [facility] Address: [address] [place] [address] Performed By: #### 5 7021-8 #### [facility] CLIA [id number] [address] [place] [address] [place] Hematocrit (Bld) [Volume fraction] 46.6 % Normal 39.0-51.0 [facility] Comment on above: Order Comment: Speci men Type: BLOOD SPECIMEN Ordering Facility: [facility] Address: [address] [place] [address] Performed By: #### 5 7021-8 #### [facility] [id number] [address] [place] [address] [place] Hemoglobin (Bld) [Mass/Vol] 16.3 g/dL Normal 13.0-17.0 [facility] Comment on above: Order Comment: Speci men Type: BLOOD SPECIMEN Ordering Facility: [facility] Address: [address] [place] [address] Performed By: #### 5 7021-8 #### [facility] CLIA [id number] [address] [place] [address] [place] Immature granulocytes (Bld) [#/Vol] 0.03 10*3/uL Normal <0.10 [facility] Comment on above: Order Comment: Speci men Type: BLOOD SPECIMEN Ordering Facility: [facility] Address: [address] [place] [address] Performed By: #### 5 7021-8 #### [facility] [id number] [address] [place] [address] [place] Immature granulocytes/100 WBC (Bld) 0.4 % Normal [facility] Comment on above: Order Comment: Speci men Type: BLOOD SPECIMEN Ordering Facility: [facility] Address: [address] [place] [address] Performed By: #### 5 7021-8 #### [facility] CLIA [id number] [address] [place] [address] [place] Lymphocytes (Bld) [#/Vol] 2.40 10*3/uL Normal 1.00-4.00 [facility] Comment on above: Order Comment: Speci men Type: BLOOD SPECIMEN Ordering Facility: [facility] Address: [address] [place] [address] Performed By: #### 5 7021-8 #### [facility] CLIA [id number] [address] [place] [address] [place] Lymphocytes/100 WBC (Bld) 28.8 % Normal [facility] Comment on above: Order Comment: Speci men Type: BLOOD SPECIMEN Ordering Facility: [facility] Address: [address] [place] [address] Performed By: #### 5 7021-8 #### [facility] CLIA [id number] [address] [place] [address] [place] MCH (RBC) [Entitic mass] 29.2 pg Normal 26.0-34.0 [facility] Comment on above: Order Comment: Speci men Type: BLOOD SPECIMEN Ordering Facility: [facility] Address: [address] [place] [address] Performed By: #### 5 7021-8 #### [facility] CLIA [id number] [address] [place] [address] [place] MCHC (RBC) [Mass/Vol] 35.0 g/dL Normal 30.5-36.0 [facility] Comment on above: Order Comment: Speci men Type: BLOOD SPECIMEN Ordering Facility: [facility] Address: [address] [place] [address] Performed By: #### 5 7021-8 #### [facility] CLIA [id number] [address] [place] [address] [place] MCV (RBC) [Entitic vol] 83.5 fL Normal 80.0-100.0 [facility] Comment on above: Order Comment: Speci men Type: BLOOD SPECIMEN Ordering Facility: [facility] Address: [address] [place] [address] Performed By: #### 5 7021-8 #### [facility] CLIA [id number] [address] [place] [address] [place] Monocytes (Bld) [#/Vol] 0.55 10*3/uL Normal <0.87 [facility] Comment on above: Order Comment: Speci men Type: BLOOD SPECIMEN Ordering Facility: [facility] Address: [address] [place] [address] Performed By: #### 5 7021-8 #### [facility] CLIA [id number] [address] [place] [address] [place] Monocytes/100 WBC (Bld) 6.6 % Normal [facility] Comment on above: Order Comment: Speci men Type: BLOOD SPECIMEN Ordering Facility: [facility] Address: [address] [place] [address] Performed By: #### 5 7021-8 #### [facility] CLIA [id number] [address] [place] [address] [place] Neutrophils (Bld) [#/Vol] 5.11 10*3/uL Normal 1.45-7.50 [facility] Comment on above: Order Comment: Speci men Type: BLOOD SPECIMEN Ordering Facility: [facility] Address: [address] [place] [address] Performed By: #### 5 7021-8 #### [facility] CLIA [id number] [address] [place] [address] [place] Neutrophils/100 WBC (Bld) 61.2 % Normal [facility] Comment on above: Order Comment: Speci men Type: BLOOD SPECIMEN Ordering Facility: [facility] Address: [address] [place] [address] Performed By: #### 5 7021-8 #### [facility] CLIA [id number] [address] [place] [address] [place] Nucleated RBC (Bld) [#/Vol] 10*3/uL Normal <0.01 [facility] Comment on above: Order Comment: Speci men Type: BLOOD SPECIMEN Ordering Facility: [facility] Address: [address] [place], [place] [address] Performed By: #### 5 7021-8 #### [facility] CLIA [id number] [address] [place] [address] [place] Nucleated RBC/100 WBC (Bld) [Ratio] 0.0 /100 WBC Normal [facility] Comment on above: Order Comment: Speci men Type: BLOOD SPECIMEN Ordering Facility: [facility] Address: [address] [place] [address] Performed By: #### 5 7021-8 #### [facility] CLIA [id number] [address] [place] [address] [place] Platelet mean volume (Bld) [Entitic vol] 9.5 fL Normal 9.0-12.7 [facility] Comment on above: Order Comment: Speci men Type: BLOOD SPECIMEN Ordering Facility: [facility] Address: [address] [place] [address] Performed By: #### 5 7021-8 #### [facility] CLIA [id number] [address] [place] [address] [place] Platelets (Bld) [#/Vol] 283 10*3/uL Normal 150-400 [facility] Comment on above: Order Comment: Speci men Type: BLOOD SPECIMEN Ordering Facility: [facility] Address: [address] [place] [address] Performed By: #### 5 7021-8 #### [facility] CLIA [id number] [address] [place] [address] [place] RBC (Bld) [#/Vol] 5.58 10*6/uL Normal 4.20-6.00 [facility] Comment on above: Order Comment: Speci men Type: BLOOD SPECIMEN Ordering Facility: [facility] Address: [address] [place] [address] Performed By: #### 5 7021-8 #### [facility] CLIA [id number] [address] [place] [address] [place] WBC (Bld) [#/Vol] 8.34 10*3/uL Normal 3.70-11.00 [facility] Comment on above: Order Comment: Speci men Type: BLOOD SPECIMEN Ordering Facility: [facility] Address: [address] [place] [address] Performed By: #### 5 7021-8 #### [facility] CLIA [id number] [address] [place] [address] OF [facility] CNPBhumi 04-10-2024 [facility] Telephone (INTKB) -------- GOVIND DEWITT ([id number]) 1995 M Date Time Provider Department 04/10/24 PRADEEP CALHOUN [facility] During your visit today, we recorded [...] Encounter Status:Closed by DOLLY NOEL on 04/10/24 [facility] CESAROVon 03-06-2024 CN Office Visit (FAMDNA ) -------- GOVIND DEWITT ([id number]) 1995 M Date Time Provider Department 03/06/24 [...] history and updated the Histories section of [facility]. Experiencing reflux symptoms Has not tried ppi [...] pertinent surgical history. Social [facility]. REVIEW OF SYSTEMS: Constitutional: Denies fever, denies [...] Diagnosis:Screening for metabolic disorder [Z13.228] Order(s):HEMOGLOBIN A1C [MEWVJ0L] Order #: [id number] FUTURE LIPID PANEL BASIC [SQLIPB] Order #: [id number] FUTURE pantoprazole DR (PROTONIX) 40 mg tabletTake [...] Service: OFFICE/OUTPATIENT NEW MODERATE MDM 45 MINUTES [80582] Additional E/M codes: VISIT CPLX INHERENT EANDM ASSOC WITH MED * Encounter Status:Closed by RITESH GARCIA on 03/23/24 Normal [facility] Absolute lymphocyte countOrd ered By: Kelton Jaramillo on 06-03-2023 Lymphocytes Auto (Unsp spec) [#/Vol] 2.68 10*3/uL 0.83-4.51 [facility] Alcohol, Blood (Medical)-Ser umon 06-03-2023 SERUM ETOH 4.0 mg/dL Normal [facility] Comment on above: Result Comment: The serum:whole blood ethanol ratio is approximately 1.14 and varies slightly with hematocrit. Medical Alcohol reference interval and critical value in non-tolerant individuals; 50 - 100 Impairment 100 Intoxication 100 - 250 Severe Poisoning 250 - 400 Deep/possible fatal coma Performed By: #### L 505.5000, L100.0100, L500.2500, L501.9100 #### [facility] [address] [place], [address] Automated lymphocyte count a s percentage of total leukocytesOrdered By: Kelton Jaramillo on 06-03-2023 Lymphocytes/100 WBC Auto (Unsp spec) 25.5 % 19-41 [facility] Basic Metabolic Profile (BMP )on 06-03-2023 BUN/CRE 6.7 RATIO Low 10-20 [facility] Comment on above: Performed By: #### L 501.9100, L100.0100, L500.2500, L505.5000 #### [facility] [address] [place], [address] CA,Total 9.3 mg/dL Normal 8.5-10.1 [facility] Comment on above: Performed By: #### L 501.9100, L100.0100, L500.2500, L505.5000 #### [facility] [address] [place], [address] Chloride [Moles/Vol] 103 mmol/L Normal 98-107 [facility] Comment on above: Performed By: #### L 501.9100, L100.0100, L500.2500, L505.5000 #### [facility] [address] [place], [address] CO2 [Moles/Vol] 26.0 mmol/L Normal 21.0-32.0 [facility] Comment on above: Performed By: #### L 501.9100, L100.0100, L500.2500, L505.5000 #### [facility] [address] [place], [address] Creatinine [Mass/Vol] 1.05 mg/dL Normal 0.70-1.30 [facility] Comment on above: Result Comment: The validity of the calculated GFR GFRAA in patients over 70 years has not been determined. Clinical correlation is essential. Performed By: #### L 501.9100, L100.0100, L500.2500, L505.5000 #### [facility] [address] [place], [address] ECRCL 123.45 ml/min Normal [facility] Comment on above: Performed By: #### L 501.9100, L100.0100, L500.2500, L505.5000 #### [facility] [address] [place], [address] EST GFR - AA 107 mL/min Normal >60 [facility] Comment on above: Result Comment: Afri can [place] GFR Calc Performed By: #### L 501.9100, L100.0100, L500.2500, L505.5000 #### [facility] [address] [place], [address] GAP 7 Normal 5-15 [facility] Comment on above: Performed By: #### L 501.9100, L100.0100, L500.2500, L505.5000 #### [facility] [address] [place], [address] GFR/1.73 sq M.predicted among non-blacks MDRD (S/P/Bld) [Vol rate/Area] 88 mL/min/{1.73_m2} Normal >60 [facility] Comment on above: Result Comment: Non- GFR Calc Performed By: #### L 501.9100, L100.0100, L500.2500, L505.5000 #### [facility] [address] [place], [address] Glucose [Mass/Vol] 89 mg/dL Normal 74-106 [facility] Comment on above: Performed By: #### L 501.9100, L100.0100, L500.2500, L505.5000 #### [facility] [address] [place], [address] Potassium [Moles/Vol] 3.8 mmol/L Normal 3.5-5.1 [facility] Comment on above: Performed By: #### L 501.9100, L100.0100, L500.2500, L505.5000 #### [facility] [address] [place], [address] Sodium [Moles/Vol] 136 mmol/L Normal 136-145 [facility] Comment on above: Performed By: #### L 501.9100, L100.0100, L500.2500, L505.5000 #### [facility] [address] [place], [address] Urea nitrogen [Mass/Vol] 7 mg/dL Normal 7-18 [facility] Comment on above: Performed By: #### L 501.9100, L100.0100, L500.2500, L505.5000 #### [facility] [address] [place], [address] Basophil percentageOrdered B y: Kelton Jaramillo on 06-03-2023 Basophils/100 WBC (Bld) 0.7 % 0-1 [facility] Chloride [Moles/Vol] 103 mmol/L 98-107 [facility] Eosinophils/100 WBC (Bld) 1.4 % 0-5 [facility] Glucose [Mass/Vol] 89 mg/dL 74-106 [facility] Hemoglobin (Bld) [Mass/Vol] 17.0 g/dL 13.0-16.5 [facility] Monocytes/100 WBC (Bld) 6.3 % 0-10 [facility] Neutrophils (Bld) [#/Vol] 6.9 10*3/uL 2.0-7.7 [facility] Neutrophils/100 WBC (Bld) 65.7 % 47-70 [facility] Potassium [Moles/Vol] 3.8 mmol/L 3.5-5.1 [facility] Sodium [Moles/Vol] 136 mmol/L 136-145 [facility] WBC (Bld) [#/Vol] 10.5 10*3/uL 4.4-11.0 [facility] CBC W/Diff, Automatedon 04 Absolute Lymph 2.68 X10 3/uL Normal 0.83-4.51 [facility] Comment on above: Performed By: #### L 505.5000, L100.0100, L500.2500, L501.9100 #### [facility] [address] [place], [address] Absolute Neut 6.9 X10 3/uL Normal 2.0-7.7 [facility] Comment on above: Performed By: #### L 505.5000, L100.0100, L500.2500, L501.9100 #### [facility] [address] [place], [address] Basophils/100 WBC (Bld) 0.7 % Normal 0-1 [facility] Comment on above: Performed By: #### L 505.5000, L100.0100, L500.2500, L501.9100 #### [facility] [address] [place], [address] Eosinophils/100 WBC (Bld) 1.4 % Normal 0-5 [facility] Comment on above: Performed By: #### L 505.5000, L100.0100, L500.2500, L501.9100 #### [facility] [address] [place], [address] Erythrocyte distribution width (RBC) [Ratio] 11.7 % Normal 11.6-14.6 [facility] Comment on above: Performed By: #### L 505.5000, L100.0100, L500.2500, L501.9100 #### [facility] [address] [place], [address] Hematocrit (Bld) [Volume fraction] 51.3 % Normal 40-54 [facility] Comment on above: Performed By: #### L 505.5000, L100.0100, L500.2500, L501.9100 #### [facility] [address] [place], [address] Hemoglobin (Bld) [Mass/Vol] 17.0 g/dL High 13.0-16.5 [facility] Comment on above: Performed By: #### L 505.5000, L100.0100, L500.2500, L501.9100 #### [facility] [address] [place], [address] IG% 0.400 Normal 0.0-0.9 [facility] Comment on above: Result Comment: IG% - Immature Granulocytes (promyelocytes, myelocytes and metamyelocytes) > 1% indicates that a LEFT SHIFT is Present. Performed By: #### L 505.5000, L100.0100, L500.2500, L501.9100 #### [facility] [address] [place], [address] Lymphocytes/100 WBC (Bld) 25.5 % Normal 19-41 [facility] Comment on above: Performed By: #### L 505.5000, L100.0100, L500.2500, L501.9100 #### [facility] [address] [place], [address] MCH (RBC) [Entitic mass] 29.5 pg Normal 27.0-32.0 [facility] Comment on above: Performed By: #### L 505.5000, L100.0100, L500.2500, L501.9100 #### [facility] [address] [place], [address] MCHC (RBC) [Mass/Vol] 33.1 g/dL Normal 32-36 [facility] Comment on above: Performed By: #### L 505.5000, L100.0100, L500.2500, L501.9100 #### [facility] [address] [place], [address] MCV (RBC) [Entitic vol] 89.1 fL Normal 80-94 [facility] Comment on above: Performed By: #### L 505.5000, L100.0100, L500.2500, L501.9100 #### [facility] [address] [place], [address] Monocytes/100 WBC (Bld) 6.3 % Normal 0-10 [facility] Comment on above: Performed By: #### L 505.5000, L100.0100, L500.2500, L501.9100 #### [facility] [address] [place], [address] Neutrophils/100 WBC (Bld) 65.7 % Normal 47-70 [facility] Comment on above: Performed By: #### L 505.5000, L100.0100, L500.2500, L501.9100 #### [facility] [address] [place], [address] Nucleated RBC (Bld) [#/Vol] 0 10*3/uL Normal 0-5 [facility] Comment on above: Performed By: #### L 505.5000, L100.0100, L500.2500, L501.9100 #### [facility] [address] [place], [address] Platelet mean volume (Bld) [Entitic vol] 10.5 fL Normal 6.2-12.0 [facility] Comment on above: Performed By: #### L 505.5000, L100.0100, L500.2500, L501.9100 #### [facility] [address] [place], [address] Platelets (Bld) [#/Vol] 280 10*3/uL Normal 150-450 [facility] Comment on above: Performed By: #### L 505.5000, L100.0100, L500.2500, L501.9100 #### [facility] [address] [place], [address] RBC (Bld) [#/Vol] 5.76 10*6/uL Normal 4.6-6.2 [facility] Comment on above: Performed By: #### L 505.5000, L100.0100, L500.2500, L501.9100 #### [facility] [address] [place], [address] RDW SD 37.6 fl Normal 35.1-43.9 [facility] Comment on above: Performed By: #### L 505.5000, L100.0100, L500.2500, L501.9100 #### [facility] [address] [place], [address] WBC (Bld) [#/Vol] 10.5 10*3/uL Normal 4.4-11.0 [facility] Comment on above: Performed By: #### L 505.5000, L100.0100, L500.2500, L501.9100 #### [facility] [address] [place], [address] Determination of erythrocyte mean corpuscular volume (MCV)Ordered By: Kelton Jaramillo on 06-03-2023 MCV (RBC) [Entitic vol] 89.1 fL 80-94 [facility] Emergency Department Summary on 06-03-2023 Emergency Department Summary [facility] Medical Records Department [address] [place] [address] Emergency Department Summary 06/03/23 MR#: [id number] Acct: [id number] Name: MYRON DEWITT Rep #: [id number] : 1995 28 From: Alvaro YADAV PCP: Care Physician,No Primary Status:REG ER Location: ED ADDENDUM by Dr. Armin Palmer MD on 06/04/23 at 0146 Patient endorsed to me by Dr. Husam Jaramillo to make final disposition on this patient that it is being evaluated by crisis. He was informed that the patient has been accepted at [facility] in [place] and is currently awaiting transfer. Patient has [...] uneasy and brought her here for evaluation. [facility] Medical History Anxiety Depression Home Medications [...] Signs: 06/03/23 (more content not included)... Normal [facility] Erythrocyte distribution wid th ratioOrdered By: Kelton Jaramillo on 06-03-2023 Erythrocyte distribution width (RBC) [Ratio] 11.7 % 11.6-14.6 [facility] Erythrocyte distribution wid th standard deviationOrdered By: Kelton Jaramillo on 06-03-2023 Erythrocyte distribution width (RBC) [Entitic vol] 37.6 fL 35.1-43.9 [facility] Hematocrit Auto (Bld) [Volum e fraction]Ordered By: Kelton Jaramillo on 06-03-2023 Hematocrit (Bld) [Volume fraction] 51.3 % 40-54 [facility] Immature granulocytes/100 WB C Auto (Bld)Ordered By: Kelton Jaramillo on 06-03-2023 Immature granulocytes/100 WBC (Bld) 0.400 % 0.0-0.9 [facility] Comment on above: IG% - Immature Granu locytes (promyelocytes, myelocytes and metamyelocytes) > 1% indicates that a LEFT SHIFT is Present. Laboratory - Chemistry and C hemistry - challengeOrdered By: Kelton Jaramillo on 06-03-2023 CO2 [Moles/Vol] 26.0 mmol/L 21.0-32.0 [facility] Urea nitrogen/Creatinine [Mass ratio] 6.7 mg/mg 10-20 [facility] - Drug toxicology Ordered By: Kelton Jaramillo on 06-03-2023 Amphetamines Ql (U) Negative <1000 ng/mL [facility] Benzodiazepines Ql (U) Negative < 200 ng/mL [facility] Cannabinoids Screen Ql (U) Positive < 50 ng/mL [facility] Cocaine Ql (U) Negative < 300 ng/mL [facility] Opiates Ql (U) Negative < 300 ng/mL [facility] - Hematology and Cell countsOrdered By: Kelton Jaramillo on 06-03-2023 MCH (RBC) [Entitic mass] 29.5 pg 27.0-32.0 [facility] MCHC (RBC) [Mass/Vol] 33.1 g/dL 32-36 [facility] Nucleated RBC/100 WBC (Bld) [Ratio] 0 % 0-5 [facility] Platelet mean volume (Bld) [Entitic vol] 10.5 fL 6.2-12.0 [facility] Platelets (Bld) [#/Vol] 280 10*3/uL 150-450 [facility] No Panel InformationOrdered By: Kelton Jaramillo on 04-25-2024 Estimated Creatinine Clearance Calc 123.45 ml/min [facility] Estimated GFR (MDRD) Amer 107 mL/min >60 [facility] Comment on above: GFR Calc Estimated GFR (MDRD) Non-Af Amer 88 mL/min >60 [facility] Comment on above: Non- GFR Calc Ethyl Alcohol Level 4.0 mg/dL [facility] Comment on above: The serum:whole bloo d ethanol ratio is approximately 1.14and varies slightly with hematocrit. Medical Alcohol reference interval and critical value innon-tolerant individuals; 50 - 100 Impairment 100 Intoxication 100 - 250 Severe Poisoning 250 - 400 Deep/possible fatal coma MDMA (Ecstasy) Screen Negative < 500 ng/mL [facility] Urine Barbiturates Screen Negative < 200 ng/mL [facility] Urine Drug Screen Comment [facility] Comment on above: CONFIRMATORY TESTING FOR [...] Urine Methadone Screen Negative < 300 ng/mL [facility] RBC Auto (Bld) [#/Vol]Ordere d By: Kelton Jaramillo on 06-03-2023 RBC (Bld) [#/Vol] 5.76 10*6/uL 4.6-6.2 [facility] Serum or plasma calcium karen urement (mass/volume)Ordered By: Kelton Jaramillo on 06-03-2023 Calcium [Mass/Vol] 9.3 mg/dL 8.5-10.1 [facility] Serum or plasma creatinine m easurement (mass/volume)Ordered By: Kelton Jaramillo on 06-03-2023 Creatinine [Mass/Vol] 1.05 mg/dL 0.70-1.30 [facility] Comment on above: The validity of the calculated GFR & GFRAA in patients over 70 years has not been determined. Clinical correlation is essential. Serum or plasma urea nitroge n measurement (mass/volume)Ordered By: Kelton Jaramillo on 06-03-2023 Urea nitrogen [Mass/Vol] 7 mg/dL 7-18 [facility] Thin prep Papanicolaou smear with manual screeningOrdered By: Kelton Jaramillo on 06-03-2023 Thin prep Papanicolaou smear with manual screening 7 5-15 [facility] Urine Drug Screen (VISTA)on 06-03-2023 AMPHETAMINES Negative Normal <1000 ng/mL [facility] Comment on above: Performed By: #### L 505.5000, L100.0100, L500.2500, L501.9100 #### [facility] [address] [facility] [address] BARBITIURATES Negative Normal < 200 ng/mL [facility] Comment on above: Performed By: #### L 505.5000, L100.0100, L500.2500, L501.9100 #### [facility] [address] [facility] [address] BENZODIAZIPINE Negative Normal < 200 ng/mL [facility] Comment on above: Performed By: #### L 505.5000, L100.0100, L500.2500, L501.9100 #### [facility] [address] [facility] [address] COCAINE Negative Normal < 300 ng/mL [facility] Comment on above: Performed By: #### L 505.5000, L100.0100, L500.2500, L501.9100 #### [facility] [address] [facility] [address] ECSTACY Negative Normal < 500 ng/mL [facility] Comment on above: Performed By: #### L 505.5000, L100.0100, L500.2500, L501.9100 #### [facility] [address] [facility] [address] METHADONE Negative Normal < 300 ng/mL [facility] Comment on above: Performed By: #### L 505.5000, L100.0100, L500.2500, L501.9100 #### [facility] [address] [place], [address] OPIATES Negative Normal < 300 ng/mL [facility] Comment on above: Performed By: #### L 505.5000, L100.0100, L500.2500, L501.9100 #### [facility] [address] [place], [address] PCP Negative Normal < 25 ng/mL [facility] Comment on above: Performed By: #### L 505.5000, L100.0100, L500.2500, L501.9100 #### [facility] [address] [place], [address] THC Positive Abnormal < 50 ng/mL [facility] Comment on above: Performed By: #### L 505.5000, L100.0100, L500.2500, L501.9100 #### [facility] [address] [place], [address] VISTA UDS PH 5 Normal [facility] Comment on above: Performed By: #### L 505.5000, L100.0100, L500.2500, L501.9100 #### [facility] [address] [place], [address] Urine phencyclidine (PCP) de tectionOrdered By: Kelton Jaramillo on 06-03-2023 Phencyclidine Ql (U) Negative < 25 ng/mL [facility] 36on 03-04-2023 36 Noted Normal [facility] 36 03/04/23 sarmad pugh, mailed letter to patient. Normal [facility] 36on 03-03-2023 36 03/03 called the patient, patients VM is full and can't leave a message , will try again this week. Normal [facility] 36 I got a refill reque st but I haven't seen her since 2021. I can refill for a short supply but she needs to come in for an appointment. Please get her scheduled and then let me know and I'll give a script bridging her until that appt. Thanks! Normal [facility] Alcohol, Blood (Medical)-Ser francoon 12-14-2022 SERUM ETOH < 3.0 Normal [facility] Comment on above: Result Comment: The serum:whole blood ethanol ratio is approximately 1.14 and varies slightly with hematocrit. Medical Alcohol reference interval and critical value in non-tolerant individuals; 50 - 100 Impairment 100 Intoxication 100 - 250 Severe Poisoning 250 - 400 Deep/possible fatal coma Performed By: #### L 501.9100, L100.0100, L500.2500, L505.5000 #### [facility] [address] [place], [address] Basic Metabolic Profile (BMP )on 12-14-2022 BUN/CRE 7.4 RATIO Low 10-20 [facility] Comment on above: Performed By: #### L 501.9100, L100.0100, L500.2500, L505.5000 #### [facility] [address] [place], [address] CA,Total 8.8 mg/dL Normal 8.5-10.1 [facility] Comment on above: Performed By: #### L 501.9100, L100.0100, L500.2500, L505.5000 #### [facility] [address] [place], [address] Chloride [Moles/Vol] 109 mmol/L High 98-107 [facility] Comment on above: Performed By: #### L 501.9100, L100.0100, L500.2500, L505.5000 #### [facility] [address] [place], [address] CO2 [Moles/Vol] 24.0 mmol/L Normal 21.0-32.0 [facility] Comment on above: Performed By: #### L 501.9100, L100.0100, L500.2500, L505.5000 #### [facility] [address] [place], [address] Creatinine [Mass/Vol] 0.95 mg/dL Normal 0.70-1.30 [facility] Comment on above: Result Comment: The validity of the calculated GFR GFRAA in patients over 70 years has not been determined. Clinical correlation is essential. Performed By: #### L 501.9100, L100.0100, L500.2500, L505.5000 #### [facility] [address] [place], [address] ECRCL 125.93 ml/min Normal [facility] Comment on above: Performed By: #### L 501.9100, L100.0100, L500.2500, L505.5000 #### [facility] [address] [place], [address] EST GFR - AA 120 mL/min Normal >60 [facility] Comment on above: Result Comment: Afri can Salvadorean GFR Calc Performed By: #### L 501.9100, L100.0100, L500.2500, L505.5000 #### [facility] [address] [place], [address] GAP 6 Normal 5-15 [facility] Comment on above: Performed By: #### L 501.9100, L100.0100, L500.2500, L505.5000 #### [facility] [address] [place], [address] GFR/1.73 sq M.predicted among non-blacks MDRD (S/P/Bld) [Vol rate/Area] 99 mL/min/{1.73_m2} Normal >60 [facility] Comment on above: Result Comment: Non- GFR Calc Performed By: #### L 501.9100, L100.0100, L500.2500, L505.5000 #### [facility] [address] [place], [address] Glucose [Mass/Vol] 97 mg/dL Normal 74-106 [facility] Comment on above: Performed By: #### L 501.9100, L100.0100, L500.2500, L505.5000 #### [facility] [address] [place], [address] Potassium [Moles/Vol] 3.5 mmol/L Normal 3.5-5.1 [facility] Comment on above: Performed By: #### L 501.9100, L100.0100, L500.2500, L505.5000 #### [facility] [address] [place], [address] Sodium [Moles/Vol] 139 mmol/L Normal 136-145 [facility] Comment on above: Performed By: #### L 501.9100, L100.0100, L500.2500, L505.5000 #### [facility] [address] [place], [address] Urea nitrogen [Mass/Vol] 7 mg/dL Normal 7-18 [facility] Comment on above: Performed By: #### L 501.9100, L100.0100, L500.2500, L505.5000 #### [facility] [address] [place], [address] CBC W/Diff, Automatedon 11-0 6-2022 Absolute Lymph 2.00 X10 3/uL Normal 0.83-4.51 [facility] Comment on above: Performed By: #### L 501.9100, L100.0100, L500.2500, L505.5000 #### [facility] [address] [place], [address] Absolute Neut 5.2 X10 3/uL Normal 2.0-7.7 [facility] Comment on above: Performed By: #### L 501.9100, L100.0100, L500.2500, L505.5000 #### [facility] [address] [place], [address] Basophils/100 WBC (Bld) 0.5 % Normal 0-1 [facility] Comment on above: Performed By: #### L 501.9100, L100.0100, L500.2500, L505.5000 #### [facility] [address] [place], [address] Eosinophils/100 WBC (Bld) 2.1 % Normal 0-5 [facility] Comment on above: Performed By: #### L 501.9100, L100.0100, L500.2500, L505.5000 #### [facility] [address] [place], [address] Erythrocyte distribution width (RBC) [Ratio] 11.9 % Normal 11.6-14.6 [facility] Comment on above: Performed By: #### L 501.9100, L100.0100, L500.2500, L505.5000 #### [facility] [address] [place], [address] Hematocrit (Bld) [Volume fraction] 43.5 % Normal 40-54 [facility] Comment on above: Performed By: #### L 501.9100, L100.0100, L500.2500, L505.5000 #### [facility] [address] [place], [address] Hemoglobin (Bld) [Mass/Vol] 15.2 g/dL Normal 13.0-16.5 [facility] Comment on above: Performed By: #### L 501.9100, L100.0100, L500.2500, L505.5000 #### [facility] [address] [place], [address] IG% 0.300 Normal 0.0-0.9 [facility] Comment on above: Result Comment: IG% - Immature Granulocytes (promyelocytes, myelocytes and metamyelocytes) > 1% indicates that a LEFT SHIFT is Present. Performed By: #### L 501.9100, L100.0100, L500.2500, L505.5000 #### [facility] [address], [address] Lymphocytes/100 WBC (Bld) 25.2 % Normal 19-41 [facility] Comment on above: Performed By: #### L 501.9100, L100.0100, L500.2500, L505.5000 #### [facility] [address] [place], [address] MCH (RBC) [Entitic mass] 31.2 pg Normal 27.0-32.0 [facility] Comment on above: Performed By: #### L 501.9100, L100.0100, L500.2500, L505.5000 #### [facility] [address] [place], [address] MCHC (RBC) [Mass/Vol] 34.9 g/dL Normal 32-36 [facility] Comment on above: Performed By: #### L 501.9100, L100.0100, L500.2500, L505.5000 #### [facility] [address] [place], [address] MCV (RBC) [Entitic vol] 89.3 fL Normal 80-94 [facility] Comment on above: Performed By: #### L 501.9100, L100.0100, L500.2500, L505.5000 #### [facility] [address] [place], [address] Monocytes/100 WBC (Bld) 6.8 % Normal 0-10 [facility] Comment on above: Performed By: #### L 501.9100, L100.0100, L500.2500, L505.5000 #### [facility] [address] [place], [address] Neutrophils/100 WBC (Bld) 65.1 % Normal 47-70 [facility] Comment on above: Performed By: #### L 501.9100, L100.0100, L500.2500, L505.5000 #### [facility] [address] [place], [address] Nucleated RBC (Bld) [#/Vol] 0 10*3/uL Normal 0-5 [facility] Comment on above: Performed By: #### L 501.9100, L100.0100, L500.2500, L505.5000 #### [facility] [address] [place], [address] Platelet mean volume (Bld) [Entitic vol] 10.3 fL Normal 6.2-12.0 [facility] Comment on above: Performed By: #### L 501.9100, L100.0100, L500.2500, L505.5000 #### [facility] [address] [place], [address] Platelets (Bld) [#/Vol] 281 10*3/uL Normal 150-450 [facility] Comment on above: Performed By: #### L 501.9100, L100.0100, L500.2500, L505.5000 #### [facility] [address] [place], [address] RBC (Bld) [#/Vol] 4.87 10*6/uL Normal 4.6-6.2 [facility] Comment on above: Performed By: #### L 501.9100, L100.0100, L500.2500, L505.5000 #### [facility] [address] [place], [address] RDW SD 38.5 fl Normal 35.1-43.9 [facility] Comment on above: Performed By: #### L 501.9100, L100.0100, L500.2500, L505.5000 #### [facility] [address] [place], [address] WBC (Bld) [#/Vol] 7.9 10*3/uL Normal 4.4-11.0 [facility] Comment on above: Performed By: #### L 501.9100, L100.0100, L500.2500, L505.5000 #### [facility] [address] [place], [address] COVID 19 AG RAPID (SOLA Rosario)on 12-14-2022 [...] RAPID METHOD BinaxNow COVID19 Ag Card Normal [facility] Comment on above: Performed By: #### M 100.505 #### [facility] [address] [place], [place], [address] Emergency Department Summary on 12-14-2022 Emergency Department Summary [facility] Medical Records Department [address] [place] [address] Emergency Department Summary 12/14/22 MR#: [id number] Acct: [id number] Name: MYRON DEWITT Rep #: [id number] : 1995 27 From: Santana Andrea DO PCP: Care Physician,No Primary Status:REG ER Location: ED ADDENDUM by Dr. Joaquin Carmen DO on 12/14/22 at 2352 Patient has been medically cleared. Patient accepted to [facility]. Awaiting transport which will likely happen in [...] states he is calm down since then. [facility] Medical History Anxiety Depression Home Medications [...] (Auto) 0 (more content not included)... Normal [facility] Urine Drug Screen (VISTA)on 12-14-2022 AMPHETAMINES Negative Normal <1000 ng/mL [facility] Comment on above: Performed By: #### L 501.9100, L100.0100, L500.2500, L505.5000 #### [facility] [address] [place] [address] BARBITIURATES Negative Normal < 200 ng/mL [facility] Comment on above: Performed By: #### L 501.9100, L100.0100, L500.2500, L505.5000 #### [facility] [address] [place] [address] BENZODIAZIPINE Negative Normal < 200 ng/mL [facility] Comment on above: Performed By: #### L 501.9100, L100.0100, L500.2500, L505.5000 #### [facility] [address] [place] [address] COCAINE Negative Normal < 300 ng/mL [facility] Comment on above: Performed By: #### L 501.9100, L100.0100, L500.2500, L505.5000 #### [facility] [address] [place] [address] ECSTACY Positive Abnormal < 500 ng/mL [facility] Comment on above: Performed By: #### L 501.9100, L100.0100, L500.2500, L505.5000 #### [facility] [address] [place] [address] METHADONE Negative Normal < 300 ng/mL [facility] Comment on above: Performed By: #### L 501.9100, L100.0100, L500.2500, L505.5000 #### [facility] [address] [place] [address] OPIATES Negative Normal < 300 ng/mL [facility] Comment on above: Performed By: #### L 501.9100, L100.0100, L500.2500, L505.5000 #### [facility] [address] [place] [id number] PCP Negative Normal < 25 ng/mL [facility] Comment on above: Performed By: #### L 501.9100, L100.0100, L500.2500, L505.5000 #### [facility] [address] [place], [address] THC Positive Abnormal < 50 ng/mL [facility] Comment on above: Performed By: #### L 501.9100, L100.0100, L500.2500, L505.5000 #### [facility] [address] [place], [address] VISTA UDS PH 6 Normal [facility] Comment on above: Performed By: #### L 501.9100, L100.0100, L500.2500, L505.5000 #### [facility] [address] [place], [address] .GFRon 06-06-2019 GFR Non- 103 ml/min/1.73sqm Normal [facility] ([place]) Comment on above: Result Comment: GFR Population [...] meters Performed By: #### B MP #### [facility] [address] [place] [address] #### GFR #### [address] [address] GFR 125 ml/min/1.73sqm Normal [facility] ([place]) Comment on above: Result Comment: GFR Population [...] meters Performed By: #### B MP #### [place] [address] #### GFR #### [address] [address] BMPon 06-06-2019 Calcium [Mass/Vol] 9.4 mg/dL Normal 8.4-10.2 [facility] ([place]) Comment on above: Performed By: #### B MP #### [address] [address] #### GFR #### [address] [address] Chloride [Moles/Vol] 101 mmol/L Normal 98-107 [facility] ([place]) Comment on above: Performed By: #### B MP #### [address] [address] #### GFR #### [address] [address] CO2 [Moles/Vol] 30 mmol/L High 22-29 [facility] ([place]) Comment on above: Performed By: #### B MP #### [address] [address] #### GFR #### [address] [address] Creatinine [Mass/Vol] 0.89 mg/dL Normal 0.70-1.30 [facility] ([place]) Comment on above: Performed By: #### B MP #### [address] [address] [address] #### GFR #### [address] [address] Electrolyte Balance 7.0 mEq/L Normal [facility] ([place]) Comment on above: Performed By: #### B MP #### [address] [address] #### GFR #### [address] [address] Glucose [Mass/Vol] 96 mg/dL Normal 70-105 [facility] ([place]) Comment on above: Performed By: #### B MP #### [address] [address] #### GFR #### [address] [address] Potassium [Moles/Vol] 4.6 mmol/L Normal 3.5-5.1 [facility] ([place]) Comment on above: Performed By: #### B MP #### [address] [address] #### GFR #### [address] [address] Sodium [Moles/Vol] 138 mmol/L Normal 136-145 [facility] ([place]) Comment on above: Performed By: #### B MP #### [address] [address] #### GFR #### [address] [address] Urea nitrogen [Mass/Vol] 17 mg/dL Normal 7-18 [facility] ([place]) Comment on above: Performed By: #### B MP #### [address] [address] #### GFR #### [address] [address] Urea nitrogen/Creatinine [Mass ratio] 19 ratio Normal 7-27 [facility] ([place]) Comment on above: Performed By: #### B MP #### [address] [place], [place] [address] #### GFR #### [id number] [place], [place] [address] Acetaminophenon 10-14-2017 Acetaminophen mass conc < 10.0 Normal 10.0-30.0 [facility] Comment on above: Performed By: #### H EMDF, BMP3, ETOH4, ACET4, SAL33 ####[facility] [place] [address] Basic Metabolic Panelon Calcium mass conc 8.5 mg/dL Normal 8.4-10.4 [facility] Comment on above: Performed By: #### H EMDF, BMP3, ETOH4, ACET4, SAL33 ####[facility] [place] [address] Glucose mass conc 82 mg/dL Normal 70-100 [facility] Comment on above: Performed By: #### H EMDF, BMP3, ETOH4, ACET4, SAL33 ####[facility] [place] [address] Urea nitrogen mass conc 8 mg/dL Normal 7-20 [facility] Comment on above: Performed By: #### H EMDF, BMP3, ETOH4, ACET4, SAL33 ####[facility] [place] [address] Anion gap 3 molar conc 8 Normal [facility] Comment on above: Performed By: #### H EMDF, BMP3, ETOH4, ACET4, SAL33 ####[facility] [place] [address] CO2 molar conc 25 mmol/L Normal 22-30 [facility] Comment on above: Performed By: #### H EMDF, BMP3, ETOH4, ACET4, SAL33 ####[facility] [place] [address] Creatinine mass conc 0.74 mg/dL Normal 0.52-1.25 [facility] Comment on above: Performed By: #### H EMDF, BMP3, ETOH4, ACET4, SAL33 ####[facility] [place] [address] GFR/1.73 sq M predicted among blacks MDRD vol rate/area (S/P/Bld) mL/min/{1.73_m2} Normal >60 [facility] Comment on above: Performed By: #### H EMDF, BMP3, ETOH4, ACET4, SAL33 ####[address] [place] [address] GFR/1.73 sq M predicted among non-blacks MDRD vol rate/area (S/P/Bld) mL/min/{1.73_m2} Normal >60 [facility] Comment on above: Result Comment: Sour ce- MDRD equation with creatinine calibration to IDMS(NKDEP) eGFR not recommended for drug dose adjustment Performed By: #### H EMDF, BMP3, ETOH4, ACET4, SAL33 ####[address] [place] [address] Potassium molar conc 4.1 mmol/L Normal 3.5-5.1 [facility] Comment on above: Performed By: #### H EMDF, BMP3, ETOH4, ACET4, SAL33 ####[address] [place] [address] Sodium molar conc 143 mmol/L Normal 137-145 [facility] Comment on above: Performed By: #### H EMDF, BMP3, ETOH4, ACET4, SAL33 ####[facility] [place] [address] Chloride molar conc 110 mmol/L High 98-107 [facility] Comment on above: Performed By: #### H EMDF, BMP3, ETOH4, ACET4, SAL33 ####[address] [place] [address] Drugs of Abuseon 10-14-2017 Phencyclidine (PCP), Ur Negative Normal [facility] Comment on above: Result Comment: The expected [...] procedures. Performed By: #### D RGA4, UAMAC ####[address] [place] [address] Opiates, Ur Negative Normal [facility] Comment on above: Performed By: #### D RGA4, UAMAC ####[address] [place] [address] Cocaine, Ur Negative Normal [facility] Comment on above: Performed By: #### D RGA4, UAMAC ####[address] [place] [address] Methadone, Ur Negative Normal [facility] Comment on above: Performed By: #### D RGA4, UAMAC ####[address] [place] [address] Benzodiazepines, Ur Negative Normal [facility] Comment on above: Performed By: #### D RGA4, UAMAC ####[address] [place] [address] Amphetamines, Ur Negative Normal [facility] Comment on above: Performed By: #### D RGA4, UAMAC ####[address] [place] [address] Barbiturates, Ur Positive Normal [facility] Comment on above: Performed By: #### D RGA4, UAMAC ####[address] [place] [address] Oxycodone/Oxymorphine ,Ur Negative Normal [facility] Comment on above: Performed By: #### D RGA4, UAMAC ####[address] [place] [address] Ethanol Serum/Plasmaon 10-14 Ethanol-Serum/Plasma < 0.010 Normal 0.000-0.010 [facility] Comment on above: Result Comment: NOTE : This result is for medical treatment only. Analysis performed using non-forensic procedures. Performed By: #### H EMDF, BMP3, ETOH4, ACET4, SAL33 ####[address] [place] [address] Hemogram w/ Autodiffon 10-14 Abs Baso Cnt 0.1 10*3/uL Normal 0.0-0.2 [facility] Comment on above: Performed By: #### H EMDF, BMP3, ETOH4, ACET4, SAL33 ####[address] [place] [address] Abs Neutrophile Cnt 2.6 10*3/uL Normal 1.8-7.0 [facility] Comment on above: Performed By: #### H EMDF, BMP3, ETOH4, ACET4, SAL33 ####[address] [place] [address] Basophils/100 WBC Auto (Bld) 0.9 % Normal 0.0-2.0 [facility] Comment on above: Performed By: #### H EMDF, BMP3, ETOH4, ACET4, SAL33 ####[address] [place] [address] Eosinophils Auto #/vol (Bld) 0.4 10*3/uL Normal 0.0-0.5 [facility] Comment on above: Performed By: #### H EMDF, BMP3, ETOH4, ACET4, SAL33 ####[address] [place] [address] Eosinophils/100 WBC Auto (Bld) 6.4 % High 1.0-6.0 [facility] Comment on above: Performed By: #### H EMDF, BMP3, ETOH4, ACET4, SAL33 ####[address] [place] [address] Erythrocyte distribution width Auto Ratio (RBC) 12.9 % Normal 11.5-14.5 [facility] Comment on above: Performed By: #### H EMDF, BMP3, ETOH4, ACET4, SAL33 ####[facility] [place] [address] Granulocytes/100 WBC (Bld) 42.6 % Normal 40.0-80.0 [facility] Comment on above: Performed By: #### H EMDF, BMP3, ETOH4, ACET4, SAL33 ####[facility] [place] [address] Hematocrit Auto Volume Fraction (Bld) 34.6 % Low 40.0-52.0 [facility] Comment on above: Performed By: #### H EMDF, BMP3, ETOH4, ACET4, SAL33 ####[facility] [place] [address] Hemoglobin mass conc (Bld) 11.9 g/dL Low 13.0-18.0 [facility] Comment on above: Performed By: #### H EMDF, BMP3, ETOH4, ACET4, SAL33 ####[address] [place] [address] Lymphocytes Auto #/vol (Bld) 2.6 10*3/uL Normal 1.0-4.3 [facility] Comment on above: Performed By: #### H EMDF, BMP3, ETOH4, ACET4, SAL33 ####[address] [place] [address] Lymphocytes/100 WBC Auto (Bld) 42.3 % High 20.0-40.0 [facility] Comment on above: Performed By: #### H EMDF, BMP3, ETOH4, ACET4, SAL33 ####[address] [place] [address] MCH Auto Entitic mass (RBC) 31.0 pg Normal 26.0-34.0 [facility] Comment on above: Performed By: #### H EMDF, BMP3, ETOH4, ACET4, SAL33 ####[address] [place] [address] MCHC Auto mass conc (RBC) 34.5 % Normal 32.0-36.0 [facility] Comment on above: Performed By: #### H EMDF, BMP3, ETOH4, ACET4, SAL33 ####[facility] [place] [address] MCV Auto Entitic volume (RBC) 90.0 fL Normal 80.0-98.0 [facility] Comment on above: Performed By: #### H EMDF, BMP3, ETOH4, ACET4, SAL33 ####[facility] [place] [address] Monocytes Auto #/vol (Bld) 0.5 10*3/uL Normal 0.0-0.8 [facility] Comment on above: Performed By: #### H EMDF, BMP3, ETOH4, ACET4, SAL33 ####[facility] [place] [address] Monocytes/100 WBC Auto (Bld) 7.8 % Normal 2.0-10.0 [facility] Comment on above: Performed By: #### H EMDF, BMP3, ETOH4, ACET4, SAL33 ####[address] [place] [address] Platelet mean volume Auto Entitic volume (Bld) 7.8 fL Normal 7.4-10.4 [facility] Comment on above: Performed By: #### H EMDF, BMP3, ETOH4, ACET4, SAL33 ####[facility] [place] [address] Platelets Auto #/vol (Bld) 200 10*3/uL Normal 140-440 [facility] Comment on above: Performed By: #### H EMDF, BMP3, ETOH4, ACET4, SAL33 ####[address] [place] [address] RBC Auto #/vol (Bld) 3.84 10*6/uL Low 4.40-5.90 [facility] Comment on above: Performed By: #### H EMDF, BMP3, ETOH4, ACET4, SAL33 ####[address] [place] [address] WBC Auto #/vol (Bld) 6.1 10*3/uL Normal 3.6-10.7 [facility] Comment on above: Performed By: #### H EMDF, BMP3, ETOH4, ACET4, SAL33 ####[facility] [place] [address] Salicylateson 10-14-2017 Salicylates < 1.0 Normal 0.0-20.0 [facility] Comment on above: Performed By: #### H EMDF, BMP3, ETOH4, ACET4, SAL33 ####[facility] [place] [address] Urinalysis,Macroon 8 Appearance CLEAR Normal Clear [facility] Comment on above: Performed By: #### D RGA4, UAMAC ####[facility] [place] [address] Bilirubin,Ur Negative Normal Negative [facility] Comment on above: Performed By: #### Shannon RGA4, UAMAC ####[facility] [place] [address] Color YELLOW Normal Lt. Yellow [facility] Comment on above: Performed By: #### D RGA4, UAMAC ####[facility] [place] [address] Glucose Ql (U) Negative Normal Negative [facility] Comment on above: Performed By: #### D RGA4, UAMAC ####[facility] [place] [address] Ketone,Urine Negative Normal Negative [facility] Comment on above: Performed By: #### D RGA4, UAMAC ####[facility] [place] [address] Leukocytes Negative Normal Negative [facility] Comment on above: Performed By: #### D RGA4, UAMAC ####[facility] [place] [address] Nitrites Negative Normal Negative [facility] Comment on above: Performed By: #### D RGA4, UAMAC ####[facility] [place] [address] Occult Blood,Ur Negative Normal Negative [facility] Comment on above: Performed By: #### D RGA4, UAMAC ####[facility] [place] [address] pH Test strip (U) 6.5 Normal 5.0-8.0 [facility] Comment on above: Performed By: #### D RGA4, UAMAC ####[facility] [place] [address] Specific [place],Urine 1.015 Normal 1.005-1.030 [facility] Comment on above: Performed By: #### D RGA4, UAMAC ####[facility] [place] [address] Total Protein,Urine Negative Normal Negative [facility] Comment on above: Performed By: #### D RGA4, UAMAC ####[facility] [place] [address] Urobilinogen 1.0 mg/dL Normal 0-1 [facility] Comment on above: Performed By: #### D RGA4, UAMAC ####[facility] [place] [address] Hemoglobin A1Con 09-29-2017 Glucose mass conc 91 mg/dL Normal [facility] Comment on above: Performed By: #### L IPD2, HA1C2 ####[facility] [employer] [id number] [place] [address] Hemoglobin A1c/Hemoglobin.total mass fraction (Bld) 4.8 % Normal 4.0-5.7 [facility] Comment on above: Result Comment: --Hg bA1C levels may not be accurate in patients who haverenal disease, received recent blood transfusions, are anemic,or who have dyshemoglobinemia. Performed By: #### L IPD2, HA1C2 ####[facility] [employer] [address] [place] [address] Lipid Panelon 09-29-2017 Cholesterol in HDL mass conc 83 mg/dL High 40-60 [facility] Comment on above: Performed By: #### L IPD2, HA1C2 ####[facility] [employer] [id number] [place] [address] Cholesterol.total/Cho lesterol in HDL mass ratio 2 Normal [facility] Comment on above: Result Comment: Ref Range:< 3 Low Risk for CHD3-6 Mod Risk for CHD> 6 High Risk for CHD Performed By: #### L IPD2, HA1C2 ####[employer] [id number] [place] [address] Protein mass conc 64 mg/dL Normal <100 [facility] Comment on above: Performed By: #### L IPD2, HA1C2 ####[facility] [place] [address] Triglyceride mass conc 104 mg/dL Normal <150 [facility] Comment on above: Performed By: #### L IPD2, HA1C2 ####[facility] [place] [address] Cholesterol mass conc 168 mg/dL Normal < 200 [facility] Comment on above: Performed By: #### L IPD2, HA1C2 ####[facility] [place] [address] Vital Signs Date Time Vital Sign Value Performing Clinician Natalia matson 03-06-2024 14:32-0500 Body height 184 cm Ritesh Garcia DO Work Phone: [facility] 03-06-2024 14:32-0500 Body mass index (BMI) [Ratio] 29.77 kg/m2 Ritesh Garcia DO Work Phone: [facility] 03-06-2024 14:32-0500 Body temperature 99 [degF] Ritesh Garcia DO Work Phone: [facility] 03-06-2024 14:32-0500 Body weight 100.8 kg Ritesh Garcia DO Work Phone: [facility] 03-06-2024 14:32-0500 Diastolic blood pressure 70 mm[Hg] Ritesh Garcia DO Work Phone: [facility] 03-06-2024 14:32-0500 Heart rate 99 /min Ritesh Garcia [employer] Work Phone: [facility] 03-06-2024 14:32-0500 Respiratory rate 16 /min Ritesh Garcia DO Work Phone: [facility] 03-06-2024 14:32-0500 SaO2% (BldA) [Mass fraction] 97 % Ritesh Garcia DO Work Phone: [facility] 03-06-2024 14:32-0500 Systolic blood pressure 107 mm[Hg] Ritesh Garcia DO Work Phone: [facility] 06-04-2023 06:56-0400 Body temperature 96.5 [degF] [facility] 06-04-2023 06:56-0400 Diastolic blood pressure 55 mm[Hg] [facility] 06-04-2023 06:56-0400 Heart rate 81 /min [facility] 06-04-2023 06:56-0400 Respiratory rate 16 /min [facility] 06-04-2023 06:56-0400 SaO2% (BldA) [Mass fraction] 95 % [facility] 06-04-2023 06:56-0400 Systolic blood pressure 93 mm[Hg] [facility] 06-03-2023 19:00-0400 Body height 182.[address] [facility] 06-03-2023 19:00-0400 Body mass index (BMI) [Ratio] 28.6 kg/m2 [facility] 06-03-2023 19:00-0400 Body weight 95.[address] [facility] 08-12-2021 03:48-0400 Diastolic blood pressure 81 mm[Hg] [facility] Work Phone: 08-12-2021 03:48-0400 Heart rate 71 /min [facility] Work Phone: 08-12-2021 03:48-0400 Respiratory rate 15 /min [facility] Work Phone: 08-12-2021 03:48-0400 SaO2% (BldA) [Mass fraction] 96 % [facility] Work Phone: 08-12-2021 03:48-0400 Systolic blood pressure 124 mm[Hg] [facility] Work Phone: 08-11-2021 23:38-0400 Body height 185.[address] [facility] Work Phone: 08-11-2021 23:38-0400 Body mass index (BMI) [Ratio] 32.1 kg/m2 [facility] Work Phone: 08-11-2021 23:38-0400 Body temperature 98.2 [degF] [facility] Work Phone: 08-11-2021 23:38-0400 Body weight 110.[address] [facility] Work Phone: Encounters Encounter Date Encounter Type Care Provider Facility Start: 08-03-2024 End: 08-03-2024 ambulatory PRADEEP CALHOUN Facility:[facility] Start: 07-18-2024 End: 07-19-2024 [facility] Pradeep Calhoun MD Work Phone: [facility] Comment on above: Recurrent major depr essive disorder, remission status unspecified (Primary Dx); Gender incongruence [employer] Start: 04-10-2024 End: 04-10-2024 Telephone encounter Pradeep Calhoun MD Work Phone: [facility] Start: 03-06-2024 End: 03-06-2024 ambulatory RITESH GARCIA Facility:[facility] Start: 03-06-2024 End: 03-06-2024 Office outpatient new 45 minutes Ritesh Garcia DO Work Phone: [facility] Comment on above: Gastroesophageal ref lux disease with esophagitis without hemorrhage (Primary Dx); Screening for metabolic disorder Start: 07-12-2023 End: 07-14-2023 ambulatory No Primary Care Physician Facility:[facility] Start: 06-03-2023 End: 06-04-2023 Emergency department patient visit [facility] Work Phone: Start: 03-03-2023 Telephone encounter Joesph Brown MD Work Phone: [facility] Comment on above: Appointment Request Start: 12-14-2022 End: 12-15-2022 Emergency department patient visit Santana Andrea Facility:[facility] Start: 08-25-2022 ambulatory EARLENE Beth DHRUVFARHAD Tori ty:[facility] Start: 08-11-2021 End: 08-12-2021 Emergency department patient visit [facility] Start: 10-14-2017 Emergency department patient visit UNKNOWN PROVIDER [facility] Procedures Date Procedure Procedure Detail Performing Clinician Start: 08-11-2021 Radiologic examinati on of knee Plan of Treatment Date Care Activity Detail Author Start: 2053 RSV Immunization age d 60 or older (1 - 1-dose 60+ series) RSV Immunization aged 60 or older (1 - 1-dose 60+ series) [facility] Start: 05-10-2043 Zoster Vaccines (1 o f 2) Zoster Vaccines (1 of 2) [facility] Start: 10-15-2027 DTaP/Tdap/Td Vaccine s (6 - Td or Tdap) DTaP/Tdap/Td Vaccines (6 - Td or Tdap) [facility] Start: 10-15-2027 Urine microalbumin profile DTaP,Tdap,Td Vaccine (6 - Td or Tdap) [facility] Start: 10-09-2024 Influenza vaccination Influenz a Vaccine (Season Ended) [facility] Start: 07-18-2024 End: 07-18-2024 Patient encounter procedure 07/18/2024 3:00 PM EDT Office Visit [facility] [id number] [place] [id number] [place] [address] [place] [address] New gender care [facility] Comment on above: New gender care Start: 07-18-2024 End: 10-17-2024 Basic metabolic 2000 panel - Serum or Plasma BASIC METABOLIC PANEL Lab Routine Gender incongruence Expected: 07/18/2024, Expires: 10/17/2024 [facility] Work Phone: Comment on above: Expected: 07/18/2024 , Expires: 10/17/2024 Start: 07-18-2024 End: 10-17-2024 CBC W Auto Differential panel - Blood COMPLETE BLOOD COUNT AND DIFFERENTIAL Lab Routine Gender incongruence Expected: 07/18/2024, Expires: 10/17/2024 [facility] Comment on above: Expected: 07/18/2024 , Expires: 10/17/2024 Start: 07-18-2024 End: 10-17-2024 Lipid 1996 panel - Serum or Plasma LIPID PANEL, FASTING Lab Routine Gender incongruence Expected: 07/18/2024, Expires: 10/17/2024 [facility] Comment on above: Expected: 07/18/2024 , Expires: 10/17/2024 Start: 03-06-2024 End: 06-05-2024 Hemoglobin A1c in Blood HEMOGLOBIN A1C Lab Routine Screening for metabolic disorder Expected: 03/06/2024, Expires: 06/05/2024 [facility] Work Phone: Comment on above: Expected: 03/06/2024 , Expires: 06/05/2024 Start: 03-06-2024 End: 06-05-2024 Lipid 1996 panel - Serum or Plasma LIPID PANEL BASIC Lab Routine Screening for metabolic disorder Expected: 03/06/2024, Expires: 06/05/2024 [facility] Comment on above: Expected: 03/06/2024 , Expires: 06/05/2024 Start: 10-10-2023 Covid-19 Vaccine ( season) Covid-19 Vaccine ( season) [facility] Start: 10-10-2023 Influenza vaccination Influenza Vacc ine (#1) [facility] Start: 06-04-2023 [facility] Start: 06-03-2023 End: 06-03-2023 [facility] Start: 06-03-2023 Referral to service [facility] Start: 06-03-2023 Suicide precautions [facility] Start: 10-09-2022 Influenza vaccination Influenza Vacc ine (#1) [facility] Start: 05-10-2011 Anxiety Screening Anxiety Screening [facility] Start: 05-10-2011 Depression Screening Depression Scre ening [facility] Start: 05-10-2011 Hepatitis C screening Hepatitis C Sc nya [facility] Start: 05-10-2011 HIV screening HIV Screening [facility] Start: 01-17-2009 Varicella vaccination Varicell a Vaccines (1 of 2 - 2-dose childhood series) [facility] Start: 2005 Depresssion Monitoring Depresssion M onitoring [facility] Start: 1997 IPV Vaccines (4 of 4 - 4-dose series) IPV Vaccines (4 of 4 - 4-dose series) [facility] Start: 1993 COVID-19 Vaccine (#1) COVID-19 Vacci ne (#1) [facility] Start: 1993 HIV screening HIV Screening [facility] ministerio Patient Education ED Knee Sprain ED Patellar Dislocation/Subluxation [facility] Work Phone: Patient referral [facility] Work Phone: Immunizations Immunization Date Immunization Notes Care Provider Fa cili 10-14-2017 tetanus toxoid, redu samara diphtheria toxoid, and acellular pertussis vaccine, adsorbed Joesph Brown MD Work Phone: [facility] Work Phone: 11-28-2013 influenza, seasonal, injectable, preservative free Pradeep Calhoun MD Work Phone: [facility] 11-28-2013 influenza virus vacc ine, unspecified formulation Joesph Brown MD Work Phone: [facility] 11-30-2012 influenza, seasonal, injectable Pradeep Calhoun MD Work Phone: [facility] 12-20-2008 novel Influenza-H1N1 -09, live virus for nasal administration Pradeep Calhoun MD Work Phone: [facility] 08-27-1994 diphtheria, tetanus toxoids and acellular pertussis vaccine, unspecified formulation Pradeep Calhoun MD Work Phone: [facility] 08-27-1994 haemophilus influenz ae type b vaccine, conjugate unspecified formulation Pradeep Calhoun MD Work Phone: [facility] 08-27-1994 measles, mumps and rubella virus vaccine Pradeep Calhoun MD Work Phone: [facility] 04-23-1994 hepatitis B vaccine, pediatric or pediatric/adolescent dosage Pradeep Calhoun MD Work Phone: [facility] 1993 diphtheria, tetanus toxoids and pertussis vaccine Pradeep Calhoun MD Work Phone: [facility] 1993 haemophilus influenz ae type b vaccine, conjugate unspecified formulation Pradeep Calhoun MD Work Phone: [facility] 1993 poliovirus vaccine, unspecified formulation Joesph Brown MD Work Phone: [facility] 1995 diphtheria, tetanus toxoids and pertussis vaccine Pradeep Calohun MD Work Phone: [facility] 1995 haemophilus influenz ae type b vaccine, conjugate unspecified formulation Pradeep Calhoun MD Work Phone: [facility] 1993 hepatitis B vaccine, pediatric or pediatric/adolescent dosage Pradeep Calhoun MD Work Phone: [facility] 1993 poliovirus vaccine, unspecified formulation Pradeep Calhoun MD Work Phone: [facility] 1993 diphtheria, tetanus toxoids and pertussis vaccine Pradeep Calhoun MD Work Phone: [facility] 1993 haemophilus influenz ae type b vaccine, conjugate unspecified formulation Pradeep Calhoun MD Work Phone: [facility] 1993 hepatitis B vaccine, pediatric or pediatric/adolescent dosage Pradeep Calhoun MD Work Phone: [facility] 1993 poliovirus vaccine, unspecified formulation Pradeep Calhoun MD Work Phone: [facility] Payers Date Payer Category Payer Self-pay [id number] 2022 Unknown [id number] 2019 Medicaid [id number] Private Health Insurance Private Health Insurance [facility] [id number] Unknown [id number] Unknown [id number] Unknown [id number] Social History Date Type Detail Facility Start: 08-11-2021 End: 06-03-2023 Tobacco smoking status NHIS Unknown if ever smoked [facility] Start: 1995 Sex Assigned At Male [facility] Tobacco smoking stat NHIS Never smoked tobacco [facility] Start: 01-28-2021 Alcohol intake Current drinker of alcohol (finding) [facility] Start: 01-28-2021 End: 03-06-2024 History of Social function [facility] Start: 01-28-2021 End: 03-06-2024 Tobacco use panel [facility] Start: 1995 Sex Assigned At Not on file [facility] Start: 11-28-2021 Gender identity [id number] transsexual (finding) [facility] Start: 03-06-2024 Tobacco smoking status NHIS Ex-smoker [facility] History of tobacco use Current smoker [facility] History of tobacco use Cigarette Smoker [facility] Start: 03-06-2024 Tobacco use and exposure Former smokeless tobacco user [facility] Start: 03-06-2024 End: 07-18-2024 Alcoholic beverage intake [facility] (1-10 0), lower number is lower risk 91 [facility] Start: 08-17-2022 Gender identity Identifies as female gender (finding) [facility] Do you belong to any clubs or organizations such as sabianist groups, unions, fraternal or athletic groups, or school groups? No [facility] Are you now , , , , never or living with a partner? Living with partner [facility] How hard is it for y ou to pay for the very basics like food, housing, medical care, and heating Somewhat hard [facility] Do you feel stress - tense, restless, nervous, or anxious, or unable to sleep at night because your mind is troubled all the time - these days [OSQ] To some extent [facility] (I/We) worried wheth er (my/our) food would run out before (I/we) got money to buy more. Often true [facility] The food that (I/we) bought just didn't last, and (I/we) didn't have money to get more. Sometimes true [facility] Clinical Notes 03-03-2023 to 07-18-2024 Pradeep Calhoun [...] visit. Either the patient or their legal sales representative leather goods has been informed of the risks and benefits of -- and alternatives to -- treatment through a remote evaluation and consents to proceed with the evaluation remotely. Recording using [employer] software for draft documentation of the visit was discussed with the patient/authorized sales representative leather goods; all questions welcomed and answered. Patient/authorized sales representative leather goods agreed to proceed HISTORY REVIEWED (electronic chart [...] correctly. - Provided informed consent documentation via [employer], detailing potential physical, emotional, and reproductive changes associated with hormone therapy. - Sent a [employer] message with questions to understand patient's gender [...] MD, MPH Director - [facility] [employer] - Transgender Surgery and Medicine Program [facility] He/Him/They/Them documented in this encounter [facility] 07-18-2024 Note HNO ID: [id number] Author: PRADEEP CALHOUN MD Service: ? Author [...] visit. Either the patient or their legal sales representative [employer] has been informed of the risks and benefits of -- and alternatives to -- treatment through a remote evaluation and consents to proceed with the evaluation remotely. Recording using [employer] software for draft documentation of the visit was discussed with the patient/authorized sales representative leather goods; all questions welcomed and answered. Patient/authorized sales representative leather goods agreed to proceed HISTORY REVIEWED (electronic chart [...] correctly. - Provided informed consent documentation via [employer], detailing potential physical, emotional, and reproductive changes associated with hormone therapy. - Sent a [employer] message with questions to understand patient's gender [...] Moderate: Drug john (more content not included)... [facility] 04-10-2024 Telephone encounter Note Called patient per below message. Left message to call office. Dolly Noel Per Roxanna Montejo - Due to a change in the provider's schedule, we will be changing your upcoming visit to a Virtual Visit. [facility] 04-10-2024 Miscellaneous Notes Called patient per below message. Left message to call office. Dolly Montejo - Due to a change in the provider's schedule, we will be changing your upcoming visit to a Virtual Visit. documented in this encounter [facility] 03-06-2024 Note HNO ID: [id number] Author: RITESH GARCIA, DO Service: ? Author [...] history and updated the Histories section of [facility]. Experiencing reflux symptoms Has not tried ppi [...] pertinent surgical history. [facility] REVIEW OF SYSTEMS: Constitutional: Denies fever, denies [...] with plan, all concerns and questions addressed. [facility] 03-06-2024 History of Presen t illness Narrative [...] history and updated the Histories section of [facility]. Experiencing reflux symptoms Has not tried ppi [...] pertinent surgical history. [facility] REVIEW OF SYSTEMS: Constitutional: Denies fever, denies [...] and questions addressed. documented in this encounter [facility] 06-04-2023 Discharge summary Note Date/Time June 03, 2023 8:26pm [facility] Medical Records Department [address] [place] [id number] Emergency Department Summary 06/03/23 MR#: [id number] Acct: [id number] Name: MYRON DEWITT Rep #:[id number] : 1995 28 From: Alvaro YADAV PCP: Care Physician,No Primary Status :REG ER Location: ED ADDENDUM by Dr. Armin Palmer MD on 06/04/23 at 0146 Patient endorsed to me by Dr. Husam Jaramillo to make final disposition on this patient that it is being evaluated by crisis. He was informed that the patient has been accepted at [facility] in [place] and is currently awaiting transfer. Patient has been stable throughout emergency department course thus far and has not required any medications except for nicotine patch. Dispositionis transferred to a psychiatric facility in stable condition. 06/04/23 0146<Electronically signed by Armin Palmer MD> Cosigner Signature (if applicable): 06/03/23 6122 <Electronically signed by Alejandro REYNA> cc: No [...] uneasy and brought her here for evaluation. [facility] <LEIF Hollingsworth - Last Filed: 06/03/23 21:44> [facility] Medical History Anxiety Depression Home Medications [...] % (Auto) 65.7 Lymph % (Auto) 25.5 Apache % (Auto) 6.3 Eos % (Auto) 1.4 [...] distress vital signs are stable patient [facility] emergency department for suicidal ideation, inability to [...] Jaramillo MD - Last Filed: 06/03/23 21:39> [facility] Narrative Medical decision making narrative: I have personally performed a face to face assessment of the patient and have reviewed the DARRYL Note. I performed a substantive portion of the visit including all aspects of the following. My more findings include: History is [28-year-old biological male xsvpbitibagwq-[id number] female. History of depression. More depressed and [...] no cords. No lacerations or trauma. Normal music adapter strength. Normal dorsi plantarflexion. Back nontender. Neurologically [...] % (Auto) 65.7 Lymph % (Auto) 25.5 Apache % (Auto) 6.3 Eos % (Auto) 1.4 [...] your Primary Care Provider. Call [facility] ([phone]) or report to the closest Emergency Room. Call 911 if necessary. 06/03/232143 <Electronically signed by Alvaro Delacruz TUBE OPERATOR-C> Cosigner Signature (if applicable): 06/03/232241 <Electronically signed by Kelton Jaramillo MD> CC: No Primary Care Physician ~ Signed [facility] Work Phone: [phone] 449-848101-25-2024 Telephone encounter Note* Telephone Encounter - Joesph Brown MD - 03/04/2023 4:23 PM EST [facility]ed [id number] Miscellaneous Notes* Telephone Encounter - Joesph Brown [...] until that appt. Thanks! documented [facility] encounter[facility] [id number] Telephone encounter Note* Telephone Encounter - Valeria Potts - 03/04/2023 4:20 PM EST 03/04/23 vm still full, mailed letter to patient. [id number] Telephone encounter Note* Telephone Encounter - Charlotte Guzman - 03/03/2023 4:23 PM EST 03/03 called the patient, patients VM is full and can't leave a message , will try again this week. [id number] Telephone encounter Note* Telephone Encounter - Joesph Brown MD - 03/03/2023 2:57 PM EST I got a refill request but I haven't seen her since 2021. I can refill for a short supply but she needs to come in for an appointment. Please get her scheduled and then let me know and I'll give a script bridging her until that appt. Thanks! [facility] noteNo assessment information availableWSelect Medical [facility] Work Phone: Evaluation note* Diagnosis Gastroesophageal reflux disease with esophagitis without hemorrhage- Primary Screening for metabolic disorder documented [facility] this encounter [facility] Diagnosis Recurrent major depressive disorder, remission status unspecified- Primary Gender incongruence documented in this encounter [facility] Summary Purpose Family History No Family History Records FoundNo Family History Records FoundNo Family History Records FoundNo Family History Records FoundNo Family History Records FoundNo Family History Records FoundNo Family History Records Found Advance Directives No Advanced Directives Records Found Advance Directive Response Recorded Date/ Time Living Will No August 11, 2021 1 1:42pm Power of Double Reamer Operator No August 11, 2021 11:42pm Advance Directive Response Recorded Date/ Time Living Will No June 03, 2023 9:32pm Power of Double Reamer Operator No June 02 9:32pm Chief Complaint and Reason for Visit Chief Complaint left knee injury Chief Complaint si Additional Source Comments (unrecognized sect ion and content) No Status Records FoundNo Status Records FoundNo Status Records FoundNo Status Records FoundNo Status Records FoundNo Status Records FoundNo Status Records Found INFORMATION SOURCE (unrecogn ized section and content) DATE CREATED AUTHOR 09/30/2017 [employer] [facility] DATE CREATED AUTHOR AUTHOR'S ORGANIZ ATION 11/18/2017 [employer] [facility] [employer] DATE CREATED AUTHOR AUTHOR'S ORGANIZ ATION 07/12/2019 [facility] ([place] DATE CREATED AUTHOR AUTHOR'S ORGANIZ ATION 08/26/2022 [facility] DATE CREATED AUTHOR AUTHOR'S ORGANIZ ATION 03/05/2023 [facility] DATE CREATED AUTHOR AUTHOR'S ORGANIZ ATION 07/16/[address] [facility] DATE CREATED AUTHOR AUTHOR'S ORGANIZ ATION 08/04/2024 [facility] Goals (unrecognized section and content) Goals may be documented in a n alternate sectionGoals may be documented in an alternate section Reason for Visit (unrecogniz ed section and content) Reason Onset Date Comments Appointment Request 03/03/2023 Reason Comments Yearly Exam Hormone Problem Reason Comments [facility] Care Teams (unrecognized sec tion and content) Valet Runner Relationship Specialty Start Date End Date Joesph Brown MD [address] [place] [address] [address] [place] [address] PCP - General Internal Medicine 09/21/22 Team [...] or prosecute any alcohol or drug abuse patient.[facility] the event this information is protected by the Federal Confidentiality of Alcohol and Drug Abuse Patient Records regulations: The Federal rules restrict any use of the information to criminally investigate or prosecute any alcohol or drug abuse patient.[facility] the event this information is protected by the Federal Confidentiality of Alcohol and Drug Abuse Patient Records regulations: The Federal rules restrict any use of the information to criminally investigate or prosecute any alcohol or drug abuse patient.[facility] the event this information is protected by the Federal Confidentiality of Alcohol and Drug Abuse Patient Records regulations: The Federal rules restrict any use of the information to criminally investigate or prosecute any alcohol or drug abuse patient.[facility] FOR RECORDS PERTAINING TO PATIENTS WHO ARE [...] BE BASED ON THE PRIMARY CLINICAL RECORDS. [facility] [employer] [facility]. provides no warranty or guarantee of the accuracy or completeness of information in this document.
--- OUTSIDE RECORDS SUMMARY | 2024-08-23 02:20 | XMS RPT_ITS | CCD ---
Author Organization [facility] Team Providers Care Manager Of Compliance Name Role Phone PROVIDER, UNKNOWN Unavailable Unavailable [...] Anion gap [Moles/Vol] 14 mmol/L Normal 8-15 [facility] Comment on above: Order Comment: Speci men Type: BLOOD SPECIMEN Ordering Facility: [facility] Address: [address] [place] [address] Performed By: #### 2 4321-2 #### [facility] CLIA [id number] [address] [place] [address] [place] Calcium [Mass/Vol] 9.9 mg/dL Normal 8.5-10.2 [facility] Comment on above: Order Comment: Speci men Type: BLOOD SPECIMEN Ordering Facility: [facility] Address: [address] [place] [address] Performed By: #### 2 4321-2 #### [facility] CLIA [id number] [address] [place] [address] [place] Chloride [Moles/Vol] 104 mmol/L Normal 98-107 [facility] Comment on above: Order Comment: Speci men Type: BLOOD SPECIMEN Ordering Facility: [facility] Address: [address] [place] [address] Performed By: #### 2 4321-2 #### [facility] CLIA [id number] [address] [place] [address] [place] CO2 [Moles/Vol] 18 mmol/L Low 22-30 [facility] Comment on above: Order Comment: Speci men Type: BLOOD SPECIMEN Ordering Facility: [facility] Address: [address] [place] [address] Performed By: #### 2 4321-2 #### [facility] CLIA [id number] [address] [place] [address] [place] Creatinine [Mass/Vol] 0.84 mg/dL Normal 0.73-1.22 [facility] Comment on above: Order Comment: Torri stinson Type: BLOOD SPECIMEN Ordering Facility: [facility] Address: [address] [place] [address] Performed By: #### 2 4321-2 #### [facility] [id number] [address] [place] [address] OF [facility] Creatinine and Glomerular filtration rate.predicted panel (S/P/Bld) 120 mL/min/1.73m??? Normal >=60 [facility] Comment on above: Order Comment: Torri stinson Type: BLOOD SPECIMEN Ordering Facility: [facility] Address: [address] [place] [address] Result Comment: Lilibeth mated Glomerular Filtration Rate [...] By: #### 2 4321-2 #### [facility] [id number] [address] [place] [address] [place] Glucose [Mass/Vol] 106 mg/dL High 74-99 [facility] Comment on above: Order Comment: Torri stinson Type: BLOOD SPECIMEN Ordering Facility: [facility] Address: [address] [place] [address] Result Comment: The [employer] (ADA) provides guidance for cutoff [...] Standards of Medical Care in Diabetes 2016, [employer]. Diabetes Care. 2016.39(Suppl 1). Performed By: #### 2 4321-2 #### [facility] [id number] [address] [place] [address] [place] Potassium [Moles/Vol] 3.8 mmol/L Normal 3.7-5.1 [facility] Comment on above: Order Comment: Speci men Type: BLOOD SPECIMEN Ordering Facility: [facility] Address: [address] [place] [address] Performed By: #### 2 4321-2 #### [facility] [id number] [address] [place] [address] [place] Sodium [Moles/Vol] 136 mmol/L Normal 136-144 [facility] Comment on above: Order Comment: Yurii men Type: BLOOD SPECIMEN Ordering Facility: [facility] Address: [address] [place] [address] Performed By: #### 2 4321-2 #### [facility] [id number] [address] [place] [address] [place] Urea nitrogen [Mass/Vol] 6 mg/dL Low 9-24 [facility] Comment on above: Order Comment: Speci men Type: BLOOD SPECIMEN Ordering Facility: [facility] Address: [address] [place] [address] Performed By: #### 2 4321-2 #### [facility] [id number] [address] [place] [address] [place] CBC W Auto Differential pane l (Bld)on 08-03-2024 Basophils (Bld) [#/Vol] 0.06 10*3/uL Normal <0.11 [facility] Comment on above: Order Comment: Speci men Type: BLOOD SPECIMEN Ordering Facility: [facility] Address: [address] [place] [address] Performed By: #### 5 7021-8 #### [facility] CLIA [id number] [address] [place] [address] [place] Basophils/100 WBC (Bld) 0.7 % Normal [facility] Comment on above: Order Comment: Speci men Type: BLOOD SPECIMEN Ordering Facility: [facility] Address: [address] [place] [address] Performed By: #### 5 7021-8 #### [facility] CLIA [id number] [address] [place] [address] [place] Differential cell count method Nom (Bld) Auto Normal [facility] Comment on above: Order Comment: Speci men Type: BLOOD SPECIMEN Ordering Facility: [facility] Address: [address] [place] [address] Performed By: #### 5 7021-8 #### [facility] CLIA [id number] [address] [place] [address] [place] Eosinophils (Bld) [#/Vol] 0.19 10*3/uL Normal <0.46 [facility] Comment on above: Order Comment: Speci men Type: BLOOD SPECIMEN Ordering Facility: [facility] Address: [address] [place] [address] Performed By: #### 5 7021-8 #### [facility] CLIA [id number] [address] [place] [address] [place] Eosinophils/100 WBC (Bld) 2.3 % Normal [facility] Comment on above: Order Comment: Speci men Type: BLOOD SPECIMEN Ordering Facility: [facility] Address: [address] [place] [address] Performed By: #### 5 7021-8 #### [facility] CLIA [id number] [address] [place] [address] [place] Erythrocyte distribution width (RBC) [Ratio] 11.9 % Normal 11.5-15.0 [facility] Comment on above: Order Comment: Speci men Type: BLOOD SPECIMEN Ordering Facility: [facility] Address: [address] [place] [address] Performed By: #### 5 7021-8 #### [facility] CLIA [id number] [address] [place] [address] [place] Hematocrit (Bld) [Volume fraction] 46.6 % Normal 39.0-51.0 [facility] Comment on above: Order Comment: Speci men Type: BLOOD SPECIMEN Ordering Facility: [facility] Address: [address] [place] [address] Performed By: #### 5 7021-8 #### [facility] [id number] [address] [place] [address] [place] Hemoglobin (Bld) [Mass/Vol] 16.3 g/dL Normal 13.0-17.0 [facility] Comment on above: Order Comment: Speci men Type: BLOOD SPECIMEN Ordering Facility: [facility] Address: [address] [place] [address] Performed By: #### 5 7021-8 #### [facility] CLIA [id number] [address] [place] [address] [place] Immature granulocytes (Bld) [#/Vol] 0.03 10*3/uL Normal <0.10 [facility] Comment on above: Order Comment: Speci men Type: BLOOD SPECIMEN Ordering Facility: [facility] Address: [address] [place] [address] Performed By: #### 5 7021-8 #### [facility] [id number] [address] [place] [address] [place] Immature granulocytes/100 WBC (Bld) 0.4 % Normal [facility] Comment on above: Order Comment: Speci men Type: BLOOD SPECIMEN Ordering Facility: [facility] Address: [address] [place] [address] Performed By: #### 5 7021-8 #### [facility] CLIA [id number] [address] [place] [address] [place] Lymphocytes (Bld) [#/Vol] 2.40 10*3/uL Normal 1.00-4.00 [facility] Comment on above: Order Comment: Speci men Type: BLOOD SPECIMEN Ordering Facility: [facility] Address: [address] [place] [address] Performed By: #### 5 7021-8 #### [facility] CLIA [id number] [address] [place] [address] [place] Lymphocytes/100 WBC (Bld) 28.8 % Normal [facility] Comment on above: Order Comment: Speci men Type: BLOOD SPECIMEN Ordering Facility: [facility] Address: [address] [place] [address] Performed By: #### 5 7021-8 #### [facility] CLIA [id number] [address] [place] [address] [place] MCH (RBC) [Entitic mass] 29.2 pg Normal 26.0-34.0 [facility] Comment on above: Order Comment: Speci men Type: BLOOD SPECIMEN Ordering Facility: [facility] Address: [address] [place] [address] Performed By: #### 5 7021-8 #### [facility] CLIA [id number] [address] [place] [address] [place] MCHC (RBC) [Mass/Vol] 35.0 g/dL Normal 30.5-36.0 [facility] Comment on above: Order Comment: Speci men Type: BLOOD SPECIMEN Ordering Facility: [facility] Address: [address] [place] [address] Performed By: #### 5 7021-8 #### [facility] CLIA [id number] [address] [place] [address] [place] MCV (RBC) [Entitic vol] 83.5 fL Normal 80.0-100.0 [facility] Comment on above: Order Comment: Speci men Type: BLOOD SPECIMEN Ordering Facility: [facility] Address: [address] [place] [address] Performed By: #### 5 7021-8 #### [facility] CLIA [id number] [address] [place] [address] [place] Monocytes (Bld) [#/Vol] 0.55 10*3/uL Normal <0.87 [facility] Comment on above: Order Comment: Speci men Type: BLOOD SPECIMEN Ordering Facility: [facility] Address: [address] [place] [address] Performed By: #### 5 7021-8 #### [facility] CLIA [id number] [address] [place] [address] [place] Monocytes/100 WBC (Bld) 6.6 % Normal [facility] Comment on above: Order Comment: Speci men Type: BLOOD SPECIMEN Ordering Facility: [facility] Address: [address] [place] [address] Performed By: #### 5 7021-8 #### [facility] CLIA [id number] [address] [place] [address] [place] Neutrophils (Bld) [#/Vol] 5.11 10*3/uL Normal 1.45-7.50 [facility] Comment on above: Order Comment: Speci men Type: BLOOD SPECIMEN Ordering Facility: [facility] Address: [address] [place] [address] Performed By: #### 5 7021-8 #### [facility] CLIA [id number] [address] [place] [address] [place] Neutrophils/100 WBC (Bld) 61.2 % Normal [facility] Comment on above: Order Comment: Speci men Type: BLOOD SPECIMEN Ordering Facility: [facility] Address: [address] [place] [address] Performed By: #### 5 7021-8 #### [facility] CLIA [id number] [address] [place] [address] [place] Nucleated RBC (Bld) [#/Vol] 10*3/uL Normal <0.01 [facility] Comment on above: Order Comment: Speci men Type: BLOOD SPECIMEN Ordering Facility: [facility] Address: [address] [place], [place] [address] Performed By: #### 5 7021-8 #### [facility] CLIA [id number] [address] [place] [address] [place] Nucleated RBC/100 WBC (Bld) [Ratio] 0.0 /100 WBC Normal [facility] Comment on above: Order Comment: Speci men Type: BLOOD SPECIMEN Ordering Facility: [facility] Address: [address] [place] [address] Performed By: #### 5 7021-8 #### [facility] CLIA [id number] [address] [place] [address] [place] Platelet mean volume (Bld) [Entitic vol] 9.5 fL Normal 9.0-12.7 [facility] Comment on above: Order Comment: Speci men Type: BLOOD SPECIMEN Ordering Facility: [facility] Address: [address] [place] [address] Performed By: #### 5 7021-8 #### [facility] CLIA [id number] [address] [place] [address] [place] Platelets (Bld) [#/Vol] 283 10*3/uL Normal 150-400 [facility] Comment on above: Order Comment: Speci men Type: BLOOD SPECIMEN Ordering Facility: [facility] Address: [address] [place] [address] Performed By: #### 5 7021-8 #### [facility] CLIA [id number] [address] [place] [address] [place] RBC (Bld) [#/Vol] 5.58 10*6/uL Normal 4.20-6.00 [facility] Comment on above: Order Comment: Speci men Type: BLOOD SPECIMEN Ordering Facility: [facility] Address: [address] [place] [address] Performed By: #### 5 7021-8 #### [facility] CLIA [id number] [address] [place] [address] [place] WBC (Bld) [#/Vol] 8.34 10*3/uL Normal 3.70-11.00 [facility] Comment on above: Order Comment: Speci men Type: BLOOD SPECIMEN Ordering Facility: [facility] Address: [address] [place] [address] Performed By: #### 5 7021-8 #### [facility] CLIA [id number] [address] [place] [address] OF [facility] CNPBhumi 04-10-[address] [facility] Telephone (INTKB) -------- GOVIND DEWITT ([id number]) 1995 M Date Time Provider Department 04/10/24 PRADEEP CALHOUN [facility] During your visit today, we recorded [...] Encounter Status:Closed by DOLLY NOEL on 04/10/[address] [facility] CESAROVon 03-06-2024 CN Office Visit (FAMDNA ) -------- GOVIND DEWITT ([id number]) 1995 M Date Time Provider Department 03/06/24 [...] history and updated the Histories section of [facility]. Experiencing reflux symptoms Has not tried [...] history. Social history reviewed in [facility]. REVIEW OF SYSTEMS: Constitutional: Denies fever, denies [...] Diagnosis:Screening for metabolic disorder [Z13.228] Order(s):HEMOGLOBIN A1C [[id number]] Order #: [id number] FUTURE LIPID PANEL BASIC [SQLIPB] Order #: [id number] FUTURE pantoprazole DR (PROTONIX) 40 mg tabletTake [...] Service: OFFICE/OUTPATIENT NEW MODERATE MDM 45 MINUTES [64040] Additional E/M codes: VISIT CPLX INHERENT EANDM ASSOC WITH MED * Encounter Status:Closed by RITESH GARCIA on 03/23/24 Normal [facility] Absolute lymphocyte countOrd ered By: Kelton Jaramillo on 06-03-2023 Lymphocytes Auto (Unsp spec) [#/Vol] 2.68 10*3/uL 0.83-4.51 [facility] Alcohol, Blood (Medical)-Ser umon 06-03-2023 SERUM ETOH 4.0 mg/dL Normal [facility] Comment on above: Result Comment: The serum:whole blood ethanol ratio is approximately 1.14 and varies slightly with hematocrit. Medical Alcohol reference interval and critical value in non-tolerant individuals; 50 - 100 Impairment 100 Intoxication 100 - 250 Severe Poisoning 250 - 400 Deep/possible fatal coma Performed By: #### L 505.5000, L100.0100, L500.2500, L501.9100 #### [facility] [address] [place], [address] Automated lymphocyte count a s percentage of total leukocytesOrdered By: Kelton Jaramillo on 06-03-2023 Lymphocytes/100 WBC Auto (Unsp spec) 25.5 % 19-41 [facility] Basic Metabolic Profile (BMP )on 06-03-2023 BUN/CRE 6.7 RATIO Low 10-20 [facility] Comment on above: Performed By: #### L 501.9100, L100.0100, L500.2500, L505.5000 #### [facility] [address] [place], [address] CA,Total 9.3 mg/dL Normal 8.5-10.1 [facility] Comment on above: Performed By: #### L 501.9100, L100.0100, L500.2500, L505.5000 #### [facility] [address] [place], [address] Chloride [Moles/Vol] 103 mmol/L Normal 98-107 [facility] Comment on above: Performed By: #### L 501.9100, L100.0100, L500.2500, L505.5000 #### [facility] [address] [place], [address] CO2 [Moles/Vol] 26.0 mmol/L Normal 21.0-32.0 [facility] Comment on above: Performed By: #### L 501.9100, L100.0100, L500.2500, L505.5000 #### [facility] [address] [place], [address] Creatinine [Mass/Vol] 1.05 mg/dL Normal 0.70-1.30 [facility] Comment on above: Result Comment: The validity of the calculated GFR GFRAA in patients over 70 years has not been determined. Clinical correlation is essential. Performed By: #### L 501.9100, L100.0100, L500.2500, L505.5000 #### [facility] [address] [place], [address] ECRCL 123.45 ml/min Normal [facility] Comment on above: Performed By: #### L 501.9100, L100.0100, L500.2500, L505.5000 #### [facility] [address] [place], [address] EST GFR - AA 107 mL/min Normal >60 [facility] Comment on above: Result Comment: Afri can Armenian GFR Calc Performed By: #### L 501.9100, L100.0100, L500.2500, L505.5000 #### [facility] [address] [place], [address] GAP 7 Normal 5-15 [facility] Comment on above: Performed By: #### L 501.9100, L100.0100, L500.2500, L505.5000 #### [facility] [address] [place], [address] GFR/1.73 sq M.predicted among non-blacks MDRD (S/P/Bld) [Vol rate/Area] 88 mL/min/{1.73_m2} Normal >60 [facility] Comment on above: Result Comment: Non- GFR Calc Performed By: #### L 501.9100, L100.0100, L500.2500, L505.5000 #### [facility] [address] [place], [address] Glucose [Mass/Vol] 89 mg/dL Normal 74-106 [facility] Comment on above: Performed By: #### L 501.9100, L100.0100, L500.2500, L505.5000 #### [facility] [address] [place], [address] Potassium [Moles/Vol] 3.8 mmol/L Normal 3.5-5.1 [facility] Comment on above: Performed By: #### L 501.9100, L100.0100, L500.2500, L505.5000 #### [facility] [address] [place], [address] Sodium [Moles/Vol] 136 mmol/L Normal 136-145 [facility] Comment on above: Performed By: #### L 501.9100, L100.0100, L500.2500, L505.5000 #### [facility] [address] [place], [address] Urea nitrogen [Mass/Vol] 7 mg/dL Normal 7-18 [facility] Comment on above: Performed By: #### L 501.9100, L100.0100, L500.2500, L505.5000 #### [facility] [address] [place], [address] Basophil percentageOrdered B y: Kelton Jaramillo on 06-03-2023 Basophils/100 WBC (Bld) 0.7 % 0-1 [facility] Chloride [Moles/Vol] 103 mmol/L 98-107 [facility] Eosinophils/100 WBC (Bld) 1.4 % 0-5 [facility] Glucose [Mass/Vol] 89 mg/dL 74-106 [facility] Hemoglobin (Bld) [Mass/Vol] 17.0 g/dL 13.0-16.5 [facility] Monocytes/100 WBC (Bld) 6.3 % 0-10 [facility] Neutrophils (Bld) [#/Vol] 6.9 10*3/uL 2.0-7.7 [facility] Neutrophils/100 WBC (Bld) 65.7 % 47-70 [facility] Potassium [Moles/Vol] 3.8 mmol/L 3.5-5.1 [facility] Sodium [Moles/Vol] 136 mmol/L 136-145 [facility] WBC (Bld) [#/Vol] 10.5 10*3/uL 4.4-11.0 [facility] CBC W/Diff, Automatedon 04 Absolute Lymph 2.68 X10 3/uL Normal 0.83-4.51 [facility] Comment on above: Performed By: #### L 505.5000, L100.0100, L500.2500, L501.9100 #### [facility] [address] [place], [address] Absolute Neut 6.9 X10 3/uL Normal 2.0-7.7 [facility] Comment on above: Performed By: #### L 505.5000, L100.0100, L500.2500, L501.9100 #### [facility] [address] [place], [address] Basophils/100 WBC (Bld) 0.7 % Normal 0-1 [facility] Comment on above: Performed By: #### L 505.5000, L100.0100, L500.2500, L501.9100 #### [facility] [address] [place], [address] Eosinophils/100 WBC (Bld) 1.4 % Normal 0-5 [facility] Comment on above: Performed By: #### L 505.5000, L100.0100, L500.2500, L501.9100 #### [facility] [address] [place], [address] Erythrocyte distribution width (RBC) [Ratio] 11.7 % Normal 11.6-14.6 [facility] Comment on above: Performed By: #### L 505.5000, L100.0100, L500.2500, L501.9100 #### [facility] [address] [place], [address] Hematocrit (Bld) [Volume fraction] 51.3 % Normal 40-54 [facility] Comment on above: Performed By: #### L 505.5000, L100.0100, L500.2500, L501.9100 #### [facility] [address] [place], [address] Hemoglobin (Bld) [Mass/Vol] 17.0 g/dL High 13.0-16.5 [facility] Comment on above: Performed By: #### L 505.5000, L100.0100, L500.2500, L501.9100 #### [facility] [address] [place], [address] IG% 0.400 Normal 0.0-0.9 [facility] Comment on above: Result Comment: IG% - Immature Granulocytes (promyelocytes, myelocytes and metamyelocytes) > 1% indicates that a LEFT SHIFT is Present. Performed By: #### L 505.5000, L100.0100, L500.2500, L501.9100 #### [facility] [address] [place], [address] Lymphocytes/100 WBC (Bld) 25.5 % Normal 19-41 [facility] Comment on above: Performed By: #### L 505.5000, L100.0100, L500.2500, L501.9100 #### [facility] [address] [place], [address] MCH (RBC) [Entitic mass] 29.5 pg Normal 27.0-32.0 [facility] Comment on above: Performed By: #### L 505.5000, L100.0100, L500.2500, L501.9100 #### [facility] [address] [place], [address] MCHC (RBC) [Mass/Vol] 33.1 g/dL Normal 32-36 [facility] Comment on above: Performed By: #### L 505.5000, L100.0100, L500.2500, L501.9100 #### [facility] [address] [place], [address] MCV (RBC) [Entitic vol] 89.1 fL Normal 80-94 [facility] Comment on above: Performed By: #### L 505.5000, L100.0100, L500.2500, L501.9100 #### [facility] [address] [place], [address] Monocytes/100 WBC (Bld) 6.3 % Normal 0-10 [facility] Comment on above: Performed By: #### L 505.5000, L100.0100, L500.2500, L501.9100 #### [facility] [address] [place], [address] Neutrophils/100 WBC (Bld) 65.7 % Normal 47-70 [facility] Comment on above: Performed By: #### L 505.5000, L100.0100, L500.2500, L501.9100 #### [facility] [address] [place], [address] Nucleated RBC (Bld) [#/Vol] 0 10*3/uL Normal 0-5 [facility] Comment on above: Performed By: #### L 505.5000, L100.0100, L500.2500, L501.9100 #### [facility] [address] [place], [address] Platelet mean volume (Bld) [Entitic vol] 10.5 fL Normal 6.2-12.0 [facility] Comment on above: Performed By: #### L 505.5000, L100.0100, L500.2500, L501.9100 #### [facility] [address] [place], [address] Platelets (Bld) [#/Vol] 280 10*3/uL Normal 150-450 [facility] Comment on above: Performed By: #### L 505.5000, L100.0100, L500.2500, L501.9100 #### [facility] [address] [place], [address] RBC (Bld) [#/Vol] 5.76 10*6/uL Normal 4.6-6.2 [facility] Comment on above: Performed By: #### L 505.5000, L100.0100, L500.2500, L501.9100 #### [facility] [address] [place], [address] RDW SD 37.6 fl Normal 35.1-43.9 [facility] Comment on above: Performed By: #### L 505.5000, L100.0100, L500.2500, L501.9100 #### [facility] [address] [place], [address] WBC (Bld) [#/Vol] 10.5 10*3/uL Normal 4.4-11.0 [facility] Comment on above: Performed By: #### L 505.5000, L100.0100, L500.2500, L501.9100 #### [facility] [address] [place], [address] Determination of erythrocyte mean corpuscular volume (MCV)Ordered By: Kelton Jaramillo on 06-03-2023 MCV (RBC) [Entitic vol] 89.1 fL 80-94 [facility] Emergency Department Summary on 06-03-2023 Emergency Department Summary [facility] Medical Records Department [address] [place] [address] Emergency Department Summary 06/03/23 MR#: [id number] Acct: [id number] Name: MYRON DEWITT Rep #: [id number] : 1995 28 From: Alvaro YADAV PCP: Care Physician,No Primary Status:REG ER Location: ED ADDENDUM by Dr. Armin Palmer MD on 06/04/23 at 0146 Patient endorsed to me by Dr. Husam Jaramillo to make final disposition on this patient that it is being evaluated by crisis. He was informed that the patient has been accepted at [facility] in [place] and is currently awaiting transfer. Patient has [...] uneasy and brought her here for evaluation. [facility] Medical History Anxiety Depression Home [...] Signs: 06/03/23 (more content not included)... Normal [facility] Erythrocyte distribution wid th ratioOrdered By: Kelton Jaramillo on 06-03-2023 Erythrocyte distribution width (RBC) [Ratio] 11.7 % 11.6-14.6 [facility] Erythrocyte distribution wid th standard deviationOrdered By: Kelton Jaramillo on 06-03-2023 Erythrocyte distribution width (RBC) [Entitic vol] 37.6 fL 35.1-43.9 [facility] Hematocrit Auto (Bld) [Volum e fraction]Ordered By: Kelton Jaramillo on 06-03-2023 Hematocrit (Bld) [Volume fraction] 51.3 % 40-54 [facility] Immature granulocytes/100 WB C Auto (Bld)Ordered By: Kelton Jaramillo on 06-03-2023 Immature granulocytes/100 WBC (Bld) 0.400 % 0.0-0.9 [facility] Comment on above: IG% - Immature Granu locytes (promyelocytes, myelocytes and metamyelocytes) > 1% indicates that a LEFT SHIFT is Present. Laboratory - Chemistry and C hemistry - challengeOrdered By: Kelton Jaramillo on 06-03-2023 CO2 [Moles/Vol] 26.0 mmol/L 21.0-32.0 [facility] Urea nitrogen/Creatinine [Mass ratio] 6.7 mg/mg 10-20 [facility] - Drug toxicology Ordered By: Kelton Jaramillo on 06-03-2023 Amphetamines Ql (U) Negative <1000 ng/mL [facility] Benzodiazepines Ql (U) Negative < 200 ng/mL [facility] Cannabinoids Screen Ql (U) Positive < 50 ng/mL [facility] Cocaine Ql (U) Negative < 300 ng/mL [facility] Opiates Ql (U) Negative < 300 ng/mL [facility] - Hematology and Cell countsOrdered By: Kelton Jaramillo on 06-03-2023 MCH (RBC) [Entitic mass] 29.5 pg 27.0-32.0 [facility] MCHC (RBC) [Mass/Vol] 33.1 g/dL 32-36 [facility] Nucleated RBC/100 WBC (Bld) [Ratio] 0 % 0-5 [facility] Platelet mean volume (Bld) [Entitic vol] 10.5 fL 6.2-12.0 [facility] Platelets (Bld) [#/Vol] 280 10*3/uL 150-450 [facility] No Panel InformationOrdered By: Kelton Jaramillo on 04-25-2024 Estimated Creatinine Clearance Calc 123.45 ml/min [facility] Estimated GFR (MDRD) Amer 107 mL/min >60 [facility] Comment on above: GFR Calc Estimated GFR (MDRD) Non-Af Amer 88 mL/min >60 [facility] Comment on above: Non- GFR Calc Ethyl Alcohol Level 4.0 mg/dL [facility] Comment on above: The serum:whole bloo d ethanol ratio is approximately 1.14and varies slightly with hematocrit. Medical Alcohol reference interval and critical value innon-tolerant individuals; 50 - 100 Impairment 100 Intoxication 100 - 250 Severe Poisoning 250 - 400 Deep/possible fatal coma MDMA (Ecstasy) Screen Negative < 500 ng/mL [facility] Urine Barbiturates Screen Negative < 200 ng/mL [facility] Urine Drug Screen Comment [facility] Comment on above: CONFIRMATORY TESTING FOR ALL [...] Urine Methadone Screen Negative < 300 ng/mL [facility] RBC Auto (Bld) [#/Vol]Ordere d By: Kelton Jaramillo on 06-03-2023 RBC (Bld) [#/Vol] 5.76 10*6/uL 4.6-6.2 [facility] Serum or plasma calcium karen urement (mass/volume)Ordered By: Kelton Jaramillo on 06-03-2023 Calcium [Mass/Vol] 9.3 mg/dL 8.5-10.1 [facility] Serum or plasma creatinine m easurement (mass/volume)Ordered By: Kelton Jaramillo on 06-03-2023 Creatinine [Mass/Vol] 1.05 mg/dL 0.70-1.30 [facility] Comment on above: The validity of the calculated GFR & GFRAA in patients over 70 years has not been determined. Clinical correlation is essential. Serum or plasma urea nitroge n measurement (mass/volume)Ordered By: Kelton Jaramillo on 06-03-2023 Urea nitrogen [Mass/Vol] 7 mg/dL 7-18 [facility] Thin prep Papanicolaou smear with manual screeningOrdered By: Kelton Jaramillo on 06-03-2023 Thin prep Papanicolaou smear with manual screening 7 5-15 [facility] Urine Drug Screen (VISTA)on 06-03-2023 AMPHETAMINES Negative Normal <1000 ng/mL [facility] Comment on above: Performed By: #### L 505.5000, L100.0100, L500.2500, L501.9100 #### [facility] [address] [facility] [address] BARBITIURATES Negative Normal < 200 ng/mL [facility] Comment on above: Performed By: #### L 505.5000, L100.0100, L500.2500, L501.9100 #### [facility] [address] [facility] [address] BENZODIAZIPINE Negative Normal < 200 ng/mL [facility] Comment on above: Performed By: #### L 505.5000, L100.0100, L500.2500, L501.9100 #### [facility] [address] [facility] [address] COCAINE Negative Normal < 300 ng/mL [facility] Comment on above: Performed By: #### L 505.5000, L100.0100, L500.2500, L501.9100 #### [facility] [address] [facility] [address] ECSTACY Negative Normal < 500 ng/mL [facility] Comment on above: Performed By: #### L 505.5000, L100.0100, L500.2500, L501.9100 #### [facility] [address] [facility] [address] METHADONE Negative Normal < 300 ng/mL [facility] Comment on above: Performed By: #### L 505.5000, L100.0100, L500.2500, L501.9100 #### [facility] [address] [place], [address] OPIATES Negative Normal < 300 ng/mL [facility] Comment on above: Performed By: #### L 505.5000, L100.0100, L500.2500, L501.9100 #### [facility] [address] [place], [address] PCP Negative Normal < 25 ng/mL [facility] Comment on above: Performed By: #### L 505.5000, L100.0100, L500.2500, L501.9100 #### [facility] [address] [place], [address] THC Positive Abnormal < 50 ng/mL [facility] Comment on above: Performed By: #### L 505.5000, L100.0100, L500.2500, L501.9100 #### [facility] [address] [place], [address] VISTA UDS PH 5 Normal [facility] Comment on above: Performed By: #### L 505.5000, L100.0100, L500.2500, L501.9100 #### [facility] [address] [place], [address] Urine phencyclidine (PCP) de tectionOrdered By: Kelton Jaramillo on 06-03-2023 Phencyclidine Ql (U) Negative < 25 ng/mL [facility] 36on 03-04-2023 36 Noted Normal [facility] 36 03/04/23 sarmad pugh, mailed letter to patient. Normal [facility] 36on 03-03-2023 36 03/03 called the patient, patients VM is full and can't leave a message , will try again this week. Normal [facility] 36 I got a refill reque st but I haven't seen her since 2021. I can refill for a short supply but she needs to come in for an appointment. Please get her scheduled and then let me know and I'll give a script bridging her until that appt. Thanks! Normal [facility] Alcohol, Blood (Medical)-Ser francoon 12-14-2022 SERUM ETOH < 3.0 Normal [facility] Comment on above: Result Comment: The serum:whole blood ethanol ratio is approximately 1.14 and varies slightly with hematocrit. Medical Alcohol reference interval and critical value in non-tolerant individuals; 50 - 100 Impairment 100 Intoxication 100 - 250 Severe Poisoning 250 - 400 Deep/possible fatal coma Performed By: #### L 501.9100, L100.0100, L500.2500, L505.5000 #### [facility] [address] [place], [address] Basic Metabolic Profile (BMP )on 12-14-2022 BUN/CRE 7.4 RATIO Low 10-20 [facility] Comment on above: Performed By: #### L 501.9100, L100.0100, L500.2500, L505.5000 #### [facility] [address] [place], [address] CA,Total 8.8 mg/dL Normal 8.5-10.1 [facility] Comment on above: Performed By: #### L 501.9100, L100.0100, L500.2500, L505.5000 #### [facility] [address] [place], [address] Chloride [Moles/Vol] 109 mmol/L High 98-107 [facility] Comment on above: Performed By: #### L 501.9100, L100.0100, L500.2500, L505.5000 #### [facility] [address] [place], [address] CO2 [Moles/Vol] 24.0 mmol/L Normal 21.0-32.0 [facility] Comment on above: Performed By: #### L 501.9100, L100.0100, L500.2500, L505.5000 #### [facility] [address] [place], [address] Creatinine [Mass/Vol] 0.95 mg/dL Normal 0.70-1.30 [facility] Comment on above: Result Comment: The validity of the calculated GFR GFRAA in patients over 70 years has not been determined. Clinical correlation is essential. Performed By: #### L 501.9100, L100.0100, L500.2500, L505.5000 #### [facility] [address] [place], [address] ECRCL 125.93 ml/min Normal [facility] Comment on above: Performed By: #### L 501.9100, L100.0100, L500.2500, L505.5000 #### [facility] [address] [place], [address] EST GFR - AA 120 mL/min Normal >60 [facility] Comment on above: Result Comment: Afri can Armenian GFR Calc Performed By: #### L 501.9100, L100.0100, L500.2500, L505.5000 #### [facility] [address] [place], [address] GAP 6 Normal 5-15 [facility] Comment on above: Performed By: #### L 501.9100, L100.0100, L500.2500, L505.5000 #### [facility] [address] [place], [address] GFR/1.73 sq M.predicted among non-blacks MDRD (S/P/Bld) [Vol rate/Area] 99 mL/min/{1.73_m2} Normal >60 [facility] Comment on above: Result Comment: Non- GFR Calc Performed By: #### L 501.9100, L100.0100, L500.2500, L505.5000 #### [facility] [address] [place], [address] Glucose [Mass/Vol] 97 mg/dL Normal 74-106 [facility] Comment on above: Performed By: #### L 501.9100, L100.0100, L500.2500, L505.5000 #### [facility] [address] [place], [address] Potassium [Moles/Vol] 3.5 mmol/L Normal 3.5-5.1 [facility] Comment on above: Performed By: #### L 501.9100, L100.0100, L500.2500, L505.5000 #### [facility] [address] [place], [address] Sodium [Moles/Vol] 139 mmol/L Normal 136-145 [facility] Comment on above: Performed By: #### L 501.9100, L100.0100, L500.2500, L505.5000 #### [facility] [address] [place], [address] Urea nitrogen [Mass/Vol] 7 mg/dL Normal 7-18 [facility] Comment on above: Performed By: #### L 501.9100, L100.0100, L500.2500, L505.5000 #### [facility] [address] [place], [address] CBC W/Diff, Automatedon 11-0 6-2022 Absolute Lymph 2.00 X10 3/uL Normal 0.83-4.51 [facility] Comment on above: Performed By: #### L 501.9100, L100.0100, L500.2500, L505.5000 #### [facility] [address] [place], [address] Absolute Neut 5.2 X10 3/uL Normal 2.0-7.7 [facility] Comment on above: Performed By: #### L 501.9100, L100.0100, L500.2500, L505.5000 #### [facility] [address] [place], [address] Basophils/100 WBC (Bld) 0.5 % Normal 0-1 [facility] Comment on above: Performed By: #### L 501.9100, L100.0100, L500.2500, L505.5000 #### [facility] [address] [place], [address] Eosinophils/100 WBC (Bld) 2.1 % Normal 0-5 [facility] Comment on above: Performed By: #### L 501.9100, L100.0100, L500.2500, L505.5000 #### [facility] [address] [place], [address] Erythrocyte distribution width (RBC) [Ratio] 11.9 % Normal 11.6-14.6 [facility] Comment on above: Performed By: #### L 501.9100, L100.0100, L500.2500, L505.5000 #### [facility] [address] [place], [address] Hematocrit (Bld) [Volume fraction] 43.5 % Normal 40-54 [facility] Comment on above: Performed By: #### L 501.9100, L100.0100, L500.2500, L505.5000 #### [facility] [address] [place], [address] Hemoglobin (Bld) [Mass/Vol] 15.2 g/dL Normal 13.0-16.5 [facility] Comment on above: Performed By: #### L 501.9100, L100.0100, L500.2500, L505.5000 #### [facility] [address] [place], [address] IG% 0.300 Normal 0.0-0.9 [facility] Comment on above: Result Comment: IG% - Immature Granulocytes (promyelocytes, myelocytes and metamyelocytes) > 1% indicates that a LEFT SHIFT is Present. Performed By: #### L 501.9100, L100.0100, L500.2500, L505.5000 #### [facility] [address] [place], [address] Lymphocytes/100 WBC (Bld) 25.2 % Normal 19-41 [facility] Comment on above: Performed By: #### L 501.9100, L100.0100, L500.2500, L505.5000 #### [facility] [address] [place], [address] MCH (RBC) [Entitic mass] 31.2 pg Normal 27.0-32.0 [facility] Comment on above: Performed By: #### L 501.9100, L100.0100, L500.2500, L505.5000 #### [facility] [address] [place], [address] MCHC (RBC) [Mass/Vol] 34.9 g/dL Normal 32-36 [facility] Comment on above: Performed By: #### L 501.9100, L100.0100, L500.2500, L505.5000 #### [facility] [address] [place], [address] MCV (RBC) [Entitic vol] 89.3 fL Normal 80-94 [facility] Comment on above: Performed By: #### L 501.9100, L100.0100, L500.2500, L505.5000 #### [facility] [address] [place], [address] Monocytes/100 WBC (Bld) 6.8 % Normal 0-10 [facility] Comment on above: Performed By: #### L 501.9100, L100.0100, L500.2500, L505.5000 #### [facility] [address] [place], [address] Neutrophils/100 WBC (Bld) 65.1 % Normal 47-70 [facility] Comment on above: Performed By: #### L 501.9100, L100.0100, L500.2500, L505.5000 #### [facility] [address] [place], [address] Nucleated RBC (Bld) [#/Vol] 0 10*3/uL Normal 0-5 [facility] Comment on above: Performed By: #### L 501.9100, L100.0100, L500.2500, L505.5000 #### [facility] [address] [place], [address] Platelet mean volume (Bld) [Entitic vol] 10.3 fL Normal 6.2-12.0 [facility] Comment on above: Performed By: #### L 501.9100, L100.0100, L500.2500, L505.5000 #### [facility] [address] [place], [address] Platelets (Bld) [#/Vol] 281 10*3/uL Normal 150-450 [facility] Comment on above: Performed By: #### L 501.9100, L100.0100, L500.2500, L505.5000 #### [facility] [address] [place], [address] RBC (Bld) [#/Vol] 4.87 10*6/uL Normal 4.6-6.2 [facility] Comment on above: Performed By: #### L 501.9100, L100.0100, L500.2500, L505.5000 #### [facility] [address] [place], [address] RDW SD 38.5 fl Normal 35.1-43.9 [facility] Comment on above: Performed By: #### L 501.9100, L100.0100, L500.2500, L505.5000 #### [facility] [address] [place], [address] WBC (Bld) [#/Vol] 7.9 10*3/uL Normal 4.4-11.0 [facility] Comment on above: Performed By: #### L 501.9100, L100.0100, L500.2500, L505.5000 #### [facility] [address] [place], [address] COVID 19 AG RAPID (SOLA Rosario)on 12-14-2022 [...] RAPID METHOD BinaxNow COVID19 Ag Card Normal [facility] Comment on above: Performed By: #### M 100.505 #### [facility] [address] [place], [place], [address] Emergency Department Summary on 12-14-2022 Emergency Department Summary [facility] Medical Records Department [address] [place] [address] Emergency Department Summary 12/14/22 MR#: [id number] Acct: [id number] Name: MYRON DEWITT Rep #: [id number] : 1995 27 From: Santana Andrea DO PCP: Care Physician,No Primary Status:REG ER Location: ED ADDENDUM by Dr. Joaquin Carmen DO on 12/14/22 at 2352 Patient has been medically cleared. Patient accepted to [facility]. Awaiting transport which will likely [...] states he is calm down since then. [facility] Medical History Anxiety Depression Home Medications naproxen [...] (Auto) 0 (more content not included)... Normal [facility] Urine Drug Screen (VISTA)on 12-14-2022 AMPHETAMINES Negative Normal <1000 ng/mL [facility] Comment on above: Performed By: #### L 501.9100, L100.0100, L500.2500, L505.5000 #### [facility] [address] [place] [address] BARBITIURATES Negative Normal < 200 ng/mL [facility] Comment on above: Performed By: #### L 501.9100, L100.0100, L500.2500, L505.5000 #### [facility] [address] [place] [address] BENZODIAZIPINE Negative Normal < 200 ng/mL [facility] Comment on above: Performed By: #### L 501.9100, L100.0100, L500.2500, L505.5000 #### [facility] [address] [place] [address] COCAINE Negative Normal < 300 ng/mL [facility] Comment on above: Performed By: #### L 501.9100, L100.0100, L500.2500, L505.5000 #### [facility] [address] [place] [address] ECSTACY Positive Abnormal < 500 ng/mL [facility] Comment on above: Performed By: #### L 501.9100, L100.0100, L500.2500, L505.5000 #### [facility] [address] [place] [address] METHADONE Negative Normal < 300 ng/mL [facility] Comment on above: Performed By: #### L 501.9100, L100.0100, L500.2500, L505.5000 #### [facility] [address] [place] [address] OPIATES Negative Normal < 300 ng/mL [facility] Comment on above: Performed By: #### L 501.9100, L100.0100, L500.2500, L505.5000 #### [facility] [address] [place] [id number] PCP Negative Normal < 25 ng/mL [facility] Comment on above: Performed By: #### L 501.9100, L100.0100, L500.2500, L505.5000 #### [facility] [address] [place], [address] THC Positive Abnormal < 50 ng/mL [facility] Comment on above: Performed By: #### L 501.9100, L100.0100, L500.2500, L505.5000 #### [facility] [address] [place], [address] VISTA UDS PH 6 Normal [facility] Comment on above: Performed By: #### L 501.9100, L100.0100, L500.2500, L505.5000 #### [facility] [address] [place], [address] .GFRon 06-06-2019 GFR Non- 103 ml/min/1.73sqm Normal [facility] ([place]) Comment on above: Result Comment: GFR Population [...] meters Performed By: #### B MP #### [facility] [address] [place] [address] #### GFR #### [address] [address] GFR 125 ml/min/1.73sqm Normal [facility] ([place]) Comment on above: Result Comment: GFR Population [...] meters Performed By: #### B MP #### [place] [address] #### GFR #### [address] [address] BMPon 06-06-2019 Calcium [Mass/Vol] 9.4 mg/dL Normal 8.4-10.2 [facility] ([place]) Comment on above: Performed By: #### B MP #### [address] [address] #### GFR #### [address] [address] Chloride [Moles/Vol] 101 mmol/L Normal 98-107 [facility] ([place]) Comment on above: Performed By: #### B MP #### [address] [address] #### GFR #### [address] [address] CO2 [Moles/Vol] 30 mmol/L High 22-29 [facility] ([place]) Comment on above: Performed By: #### B MP #### [address] [address] #### GFR #### [address] [address] Creatinine [Mass/Vol] 0.89 mg/dL Normal 0.70-1.30 [facility] ([place]) Comment on above: Performed By: #### B MP #### [address] [address] #### GFR #### [address] [address] Electrolyte Balance 7.0 mEq/L Normal [facility] ([place]) Comment on above: Performed By: #### B MP #### [address] [address] #### GFR #### [address] [address] Glucose [Mass/Vol] 96 mg/dL Normal 70-105 [facility] ([place]) Comment on above: Performed By: #### B MP #### [address] [address] #### GFR #### [address] [address] Potassium [Moles/Vol] 4.6 mmol/L Normal 3.5-5.1 [facility] ([place]) Comment on above: Performed By: #### B MP #### [address] [address] #### GFR #### [address] [address] Sodium [Moles/Vol] 138 mmol/L Normal 136-145 [facility] ([place]) Comment on above: Performed By: #### B MP #### [address] [address] #### GFR #### [address] [address] Urea nitrogen [Mass/Vol] 17 mg/dL Normal 7-18 [facility] ([place]) Comment on above: Performed By: #### B MP #### [address] [address] #### GFR #### [address] [address] Urea nitrogen/Creatinine [Mass ratio] 19 ratio Normal 7-27 [facility] ([place]) Comment on above: Performed By: #### B MP #### [address] [place], [place] [address] #### GFR #### [place] [address] [place], [place] [address] Acetaminophenon 10-14-2017 Acetaminophen mass conc < 10.0 Normal 10.0-30.0 [facility] Comment on above: Performed By: #### H EMDF, BMP3, ETOH4, ACET4, SAL33 ####[facility] [place] [address] Basic Metabolic Panelon Calcium mass conc 8.5 mg/dL Normal 8.4-10.4 [facility] Comment on above: Performed By: #### H EMDF, BMP3, ETOH4, ACET4, SAL33 ####[facility] [place] [address] Glucose mass conc 82 mg/dL Normal 70-100 [facility] Comment on above: Performed By: #### H EMDF, BMP3, ETOH4, ACET4, SAL33 ####[facility] [place] [address] Urea nitrogen mass conc 8 mg/dL Normal 7-20 [facility] Comment on above: Performed By: #### H EMDF, BMP3, ETOH4, ACET4, SAL33 ####[facility] [place] [address] Anion gap 3 molar conc 8 Normal [facility] Comment on above: Performed By: #### H EMDF, BMP3, ETOH4, ACET4, SAL33 ####[facility] [place] [address] CO2 molar conc 25 mmol/L Normal 22-30 [facility] Comment on above: Performed By: #### H EMDF, BMP3, ETOH4, ACET4, SAL33 ####[facility] [place] [address] Creatinine mass conc 0.74 mg/dL Normal 0.52-1.25 [facility] Comment on above: Performed By: #### H EMDF, BMP3, ETOH4, ACET4, SAL33 ####[facility] [place] [address] GFR/1.73 sq M predicted among blacks MDRD vol rate/area (S/P/Bld) mL/min/{1.73_m2} Normal >60 [facility] Comment on above: Performed By: #### H EMDF, BMP3, ETOH4, ACET4, SAL33 ####[address] [place] [address] GFR/1.73 sq M predicted among non-blacks MDRD vol rate/area (S/P/Bld) mL/min/{1.73_m2} Normal >60 [facility] Comment on above: Result Comment: Sour ce- MDRD equation with creatinine calibration to IDMS(NKDEP) eGFR not recommended for drug dose adjustment Performed By: #### H EMDF, BMP3, ETOH4, ACET4, SAL33 ####[address] [place] [address] Potassium molar conc 4.1 mmol/L Normal 3.5-5.1 [facility] Comment on above: Performed By: #### H EMDF, BMP3, ETOH4, ACET4, SAL33 ####[address] [place] [address] Sodium molar conc 143 mmol/L Normal 137-145 [facility] Comment on above: Performed By: #### H EMDF, BMP3, ETOH4, ACET4, SAL33 ####[facility] [place] [address] Chloride molar conc 110 mmol/L High 98-107 [facility] Comment on above: Performed By: #### H EMDF, BMP3, ETOH4, ACET4, SAL33 ####[address] [place] [address] Drugs of Abuseon 10-14-2017 Phencyclidine (PCP), Ur Negative Normal [facility] Comment on above: Result Comment: The [...] procedures. Performed By: #### D RGA4, UAMAC ####[address] [place] [address] Opiates, Ur Negative Normal [facility] Comment on above: Performed By: #### D RGA4, UAMAC ####[address] [place] [address] Cocaine, Ur Negative Normal [facility] Comment on above: Performed By: #### D RGA4, UAMAC ####[address] [place] [address] Methadone, Ur Negative Normal [facility] Comment on above: Performed By: #### D RGA4, UAMAC ####[address] [place] [address] Benzodiazepines, Ur Negative Normal [facility] Comment on above: Performed By: #### D RGA4, UAMAC ####[address] [place] [address] Amphetamines, Ur Negative Normal [facility] Comment on above: Performed By: #### D RGA4, UAMAC ####[address] [place] [address] Barbiturates, Ur Positive Normal [facility] Comment on above: Performed By: #### D RGA4, UAMAC ####[address] [place] [address] Oxycodone/Oxymorphine ,Ur Negative Normal [facility] Comment on above: Performed By: #### D RGA4, UAMAC ####[address] [place] [address] Ethanol Serum/Plasmaon 10-14 Ethanol-Serum/Plasma < 0.010 Normal 0.000-0.010 [facility] Comment on above: Result Comment: NOTE : This result is for medical treatment only. Analysis performed using non-forensic procedures. Performed By: #### H EMDF, BMP3, ETOH4, ACET4, SAL33 ####[address] [place] [address] Hemogram w/ Autodiffon 10-14 Abs Baso Cnt 0.1 10*3/uL Normal 0.0-0.2 [facility] Comment on above: Performed By: #### H EMDF, BMP3, ETOH4, ACET4, SAL33 ####[address] [place] [address] Abs Neutrophile Cnt 2.6 10*3/uL Normal 1.8-7.0 [facility] Comment on above: Performed By: #### H EMDF, BMP3, ETOH4, ACET4, SAL33 ####[address] [place] [address] Basophils/100 WBC Auto (Bld) 0.9 % Normal 0.0-2.0 [facility] Comment on above: Performed By: #### H EMDF, BMP3, ETOH4, ACET4, SAL33 ####[address] [place] [address] Eosinophils Auto #/vol (Bld) 0.4 10*3/uL Normal 0.0-0.5 [facility] Comment on above: Performed By: #### H EMDF, BMP3, ETOH4, ACET4, SAL33 ####[address] [place] [address] Eosinophils/100 WBC Auto (Bld) 6.4 % High 1.0-6.0 [facility] Comment on above: Performed By: #### H EMDF, BMP3, ETOH4, ACET4, SAL33 ####[address] [place] [address] Erythrocyte distribution width Auto Ratio (RBC) 12.9 % Normal 11.5-14.5 [facility] Comment on above: Performed By: #### H EMDF, BMP3, ETOH4, ACET4, SAL33 ####[facility] [place] [address] Granulocytes/100 WBC (Bld) 42.6 % Normal 40.0-80.0 [facility] Comment on above: Performed By: #### H EMDF, BMP3, ETOH4, ACET4, SAL33 ####[facility] [place] [address] Hematocrit Auto Volume Fraction (Bld) 34.6 % Low 40.0-52.0 [facility] Comment on above: Performed By: #### H EMDF, BMP3, ETOH4, ACET4, SAL33 ####[facility] [place] [address] Hemoglobin mass conc (Bld) 11.9 g/dL Low 13.0-18.0 [facility] Comment on above: Performed By: #### H EMDF, BMP3, ETOH4, ACET4, SAL33 ####[address] [place] [address] Lymphocytes Auto #/vol (Bld) 2.6 10*3/uL Normal 1.0-4.3 [facility] Comment on above: Performed By: #### H EMDF, BMP3, ETOH4, ACET4, SAL33 ####[address] [place] [address] Lymphocytes/100 WBC Auto (Bld) 42.3 % High 20.0-40.0 [facility] Comment on above: Performed By: #### H EMDF, BMP3, ETOH4, ACET4, SAL33 ####[address] [place] [address] MCH Auto Entitic mass (RBC) 31.0 pg Normal 26.0-34.0 [facility] Comment on above: Performed By: #### H EMDF, BMP3, ETOH4, ACET4, SAL33 ####[address] [place] [address] MCHC Auto mass conc (RBC) 34.5 % Normal 32.0-36.0 [facility] Comment on above: Performed By: #### H EMDF, BMP3, ETOH4, ACET4, SAL33 ####[facility] [place] [address] MCV Auto Entitic volume (RBC) 90.0 fL Normal 80.0-98.0 [facility] Comment on above: Performed By: #### H EMDF, BMP3, ETOH4, ACET4, SAL33 ####[facility] [place] [address] Monocytes Auto #/vol (Bld) 0.5 10*3/uL Normal 0.0-0.8 [facility] Comment on above: Performed By: #### H EMDF, BMP3, ETOH4, ACET4, SAL33 ####[facility] [place] [address] Monocytes/100 WBC Auto (Bld) 7.8 % Normal 2.0-10.0 [facility] Comment on above: Performed By: #### H EMDF, BMP3, ETOH4, ACET4, SAL33 ####[address] [place] [address] Platelet mean volume Auto Entitic volume (Bld) 7.8 fL Normal 7.4-10.4 [facility] Comment on above: Performed By: #### H EMDF, BMP3, ETOH4, ACET4, SAL33 ####[facility] [place] [address] Platelets Auto #/vol (Bld) 200 10*3/uL Normal 140-440 [facility] Comment on above: Performed By: #### H EMDF, BMP3, ETOH4, ACET4, SAL33 ####[address] [place] [address] RBC Auto #/vol (Bld) 3.84 10*6/uL Low 4.40-5.[address] [facility] Comment on above: Performed By: #### H EMDF, BMP3, ETOH4, ACET4, SAL33 ####[address] [place] [address] WBC Auto #/vol (Bld) 6.1 10*3/uL Normal 3.6-10.7 [facility] Comment on above: Performed By: #### H EMDF, BMP3, ETOH4, ACET4, SAL33 ####[facility] [place] [address] Salicylateson 10-14-2017 Salicylates < 1.0 Normal 0.0-20.0 [facility] Comment on above: Performed By: #### H EMDF, BMP3, ETOH4, ACET4, SAL33 ####[facility] [place] [address] Urinalysis,Macroon 8 Appearance CLEAR Normal Clear [facility] Comment on above: Performed By: #### D RGA4, UAMAC ####[facility] [place] [address] Bilirubin,Ur Negative Normal Negative [facility] Comment on above: Performed By: #### Shannon RGA4, UAMAC ####[facility] [place] [address] Color YELLOW Normal Lt. Yellow [facility] Comment on above: Performed By: #### D RGA4, UAMAC ####[facility] [place] [address] Glucose Ql (U) Negative Normal Negative [facility] Comment on above: Performed By: #### D RGA4, UAMAC ####[facility] [place] [address] Ketone,Urine Negative Normal Negative [facility] Comment on above: Performed By: #### D RGA4, UAMAC ####[facility] [place] [address] Leukocytes Negative Normal Negative [facility] Comment on above: Performed By: #### D RGA4, UAMAC ####[facility] [place] [address] Nitrites Negative Normal Negative [facility] Comment on above: Performed By: #### D RGA4, UAMAC ####[facility] [place] [address] Occult Blood,Ur Negative Normal Negative [facility] Comment on above: Performed By: #### D RGA4, UAMAC ####[facility] [place] [address] pH Test strip (U) 6.5 Normal 5.0-8.0 [facility] Comment on above: Performed By: #### D RGA4, UAMAC ####[facility] [place] [address] Specific [place],Urine 1.015 Normal 1.005-1.030 [facility] Comment on above: Performed By: #### D RGA4, UAMAC ####[facility] [place] [address] Total Protein,Urine Negative Normal Negative [facility] Comment on above: Performed By: #### D RGA4, UAMAC ####[facility] [place] [address] Urobilinogen 1.0 mg/dL Normal 0-1 [facility] Comment on above: Performed By: #### D RGA4, UAMAC ####[facility] [place] [address] Hemoglobin A1Con 09-29-2017 Glucose mass conc 91 mg/dL Normal [facility] Comment on above: Performed By: #### L IPD2, HA1C2 ####[facility] [employer] [id number] [place] [address] Hemoglobin A1c/Hemoglobin.total mass fraction (Bld) 4.8 % Normal 4.0-5.7 [facility] Comment on above: Result Comment: --Hg bA1C levels may not be accurate in patients who haverenal disease, received recent blood transfusions, are anemic,or who have dyshemoglobinemia. Performed By: #### L IPD2, HA1C2 ####[facility] [employer] [id number] [place] [address] Lipid Panelon 09-29-2017 Cholesterol in HDL mass conc 83 mg/dL High 40-60 [facility] Comment on above: Performed By: #### L IPD2, HA1C2 ####[facility] [employer] [id number] [place] [address] Cholesterol.total/Cho lesterol in HDL mass ratio 2 Normal [facility] Comment on above: Result Comment: Ref Range:< 3 Low Risk for CHD3-6 Mod Risk for CHD> 6 High Risk for CHD Performed By: #### L IPD2, HA1C2 ####[employer] [id number] [place] [address] Protein mass conc 64 mg/dL Normal <100 [facility] Comment on above: Performed By: #### L IPD2, HA1C2 ####[facility] [place] [address] Triglyceride mass conc 104 mg/dL Normal <150 [facility] Comment on above: Performed By: #### L IPD2, HA1C2 ####[facility] [place] [address] Cholesterol mass conc 168 mg/dL Normal < 200 [facility] Comment on above: Performed By: #### L IPD2, HA1C2 ####[facility] [place] [address] Vital Signs Date Time Vital Sign Value Performing Clinician Natalia matson 03-06-2024 14:32-0500 Body height 184 cm Ritesh Garcia DO Work Phone: [facility] 03-06-2024 14:32-0500 Body mass index (BMI) [Ratio] 29.77 kg/m2 Ritesh Garcia DO Work Phone: [facility] 03-06-2024 14:32-0500 Body temperature 99 [degF] Ritesh Garcia DO Work Phone: [facility] 03-06-2024 14:32-0500 Body weight 100.8 kg Ritesh Garcia DO Work Phone: [facility] 03-06-2024 14:32-0500 Diastolic blood pressure 70 mm[Hg] Ritesh Garcia DO Work Phone: [facility] 03-06-2024 14:32-0500 Heart rate 99 /min Ritesh Garcia [employer] Work Phone: [facility] 03-06-2024 14:32-0500 Respiratory rate 16 /min Ritesh Garcia DO Work Phone: [facility] 03-06-2024 14:32-0500 SaO2% (BldA) [Mass fraction] 97 % Ritesh Garcia DO Work Phone: [facility] 03-06-2024 14:32-0500 Systolic blood pressure 107 mm[Hg] Ritesh Garcia DO Work Phone: [facility] 06-04-2023 06:56-0400 Body temperature 96.5 [degF] [facility] 06-04-2023 06:56-0400 Diastolic blood pressure 55 mm[Hg] [facility] 06-04-2023 06:56-0400 Heart rate 81 /min [facility] 06-04-2023 06:56-0400 Respiratory rate 16 /min [facility] 06-04-2023 06:56-0400 SaO2% (BldA) [Mass fraction] 95 % [facility] 06-04-2023 06:56-0400 Systolic blood pressure 93 mm[Hg] [facility] 06-03-2023 19:00-0400 Body height 182.88 cm [facility] 06-03-2023 19:00-0400 Body mass index (BMI) [Ratio] 28.6 kg/m2 [facility] 06-03-2023 19:00-0400 Body weight 95.7 kg [facility] 08-12-2021 03:48-0400 Diastolic blood pressure 81 mm[Hg] [facility] Work Phone: 08-12-2021 03:48-0400 Heart rate 71 /min [facility] Work Phone: 08-12-2021 03:48-0400 Respiratory rate 15 /min [facility] Work Phone: 08-12-2021 03:48-0400 SaO2% (BldA) [Mass fraction] 96 % [facility] Work Phone: 08-12-2021 03:48-0400 Systolic blood pressure 124 mm[Hg] [facility] Work Phone: 08-11-2021 23:38-0400 Body height 185.42 cm [facility] Work Phone: 08-11-2021 23:38-0400 Body mass index (BMI) [Ratio] 32.1 kg/m2 [facility] Work Phone: 08-11-2021 23:38-0400 Body temperature 98.2 [degF] [facility] Work Phone: 08-11-2021 23:38-0400 Body weight 110.6 kg [facility] Work Phone: Encounters Encounter Date Encounter Type Care Provider Facility Start: 08-03-2024 End: 08-03-2024 ambulatory PRADEEP CALHOUN Facility:[facility] Start: 07-18-2024 End: 07-19-2024 [facility] Pradeep Calhoun MD Work Phone: [facility] Comment on above: Recurrent major depr essive disorder, remission status unspecified (Primary Dx); Gender incongruence [employer] Start: 04-10-2024 End: 04-10-2024 Telephone encounter Pradeep Calhoun MD Work Phone: [facility] Start: 03-06-2024 End: 03-06-2024 ambulatory RITESH GARCIA Facility:[facility] Start: 03-06-2024 End: 03-06-2024 Office outpatient new 45 minutes Ritesh Garcia DO Work Phone: [facility] Comment on above: Gastroesophageal ref lux disease with esophagitis without hemorrhage (Primary Dx); Screening for metabolic disorder Start: 07-12-2023 End: 07-14-2023 ambulatory No Primary Care Physician Facility:[facility] Start: 06-03-2023 End: 06-04-2023 Emergency department patient visit [facility] Work Phone: Start: 03-03-2023 Telephone encounter Joesph Brown MD Work Phone: [facility] Comment on above: Appointment Request Start: 12-14-2022 End: 12-15-2022 Emergency department patient visit Santana Andrea Facility:[facility] Start: 08-25-2022 ambulatory EARLENE Beth DHRUVFARHAD Tori ty:[facility] Start: 08-11-2021 End: 08-12-2021 Emergency department patient visit [facility] Start: 10-14-2017 Emergency department patient visit UNKNOWN PROVIDER [facility] Procedures Date Procedure Procedure Detail Performing Clinician Start: 08-11-2021 Radiologic examinati on of knee Plan of Treatment Date Care Activity Detail Author Start: 2053 RSV Immunization age d 60 or older (1 - 1-dose 60+ series) RSV Immunization aged 60 or older (1 - 1-dose 60+ series) [facility] Start: 05-10-2043 Zoster Vaccines (1 o f 2) Zoster Vaccines (1 of 2) [facility] Start: 10-15-2027 DTaP/Tdap/Td Vaccine s (6 - Td or Tdap) DTaP/Tdap/Td Vaccines (6 - Td or Tdap) [facility] Start: 10-15-2027 Urine microalbumin profile DTaP,Tdap,Td Vaccine (6 - Td or Tdap) [facility] Start: 10-09-2024 Influenza vaccination Influenz a Vaccine (Season Ended) [facility] Start: 07-18-2024 End: 07-18-2024 Patient encounter procedure 07/18/2024 3:00 PM EDT Office Visit [facility] [id number] [place] [phone] [place] [address] [place] [address] New gender care [facility] Comment on above: New gender care Start: 07-18-2024 End: 10-17-2024 Basic metabolic 2000 panel - Serum or Plasma BASIC METABOLIC PANEL Lab Routine Gender incongruence Expected: 07/18/2024, Expires: 10/17/2024 [facility] Work Phone: Comment on above: Expected: 07/18/2024 , Expires: 10/17/2024 Start: 07-18-2024 End: 10-17-2024 CBC W Auto Differential panel - Blood COMPLETE BLOOD COUNT AND DIFFERENTIAL Lab Routine Gender incongruence Expected: 07/18/2024, Expires: 10/17/2024 [facility] Comment on above: Expected: 07/18/2024 , Expires: 10/17/2024 Start: 07-18-2024 End: 10-17-2024 Lipid 1996 panel - Serum or Plasma LIPID PANEL, FASTING Lab Routine Gender incongruence Expected: 07/18/2024, Expires: 10/17/2024 [facility] Comment on above: Expected: 07/18/2024 , Expires: 10/17/2024 Start: 03-06-2024 End: 06-05-2024 Hemoglobin A1c in Blood HEMOGLOBIN A1C Lab Routine Screening for metabolic disorder Expected: 03/06/2024, Expires: 06/05/2024 [facility] Work Phone: Comment on above: Expected: 03/06/2024 , Expires: 06/05/2024 Start: 03-06-2024 End: 06-05-2024 Lipid 1996 panel - Serum or Plasma LIPID PANEL BASIC Lab Routine Screening for metabolic disorder Expected: 03/06/2024, Expires: 06/05/2024 [facility] Comment on above: Expected: 03/06/2024 , Expires: 06/05/2024 Start: 10-10-2023 Covid-19 Vaccine ( season) Covid-19 Vaccine ( season) [facility] Start: 10-10-2023 Influenza vaccination Influenza Vacc ine (#1) [facility] Start: 06-04-2023 [facility] Start: 06-03-2023 End: 06-03-2023 [facility] Start: 06-03-2023 Referral to service [facility] Start: 06-03-2023 Suicide precautions [facility] Start: 10-09-2022 Influenza vaccination Influenza Vacc ine (#1) [facility] Start: 05-10-2011 Anxiety Screening Anxiety Screening [facility] Start: 05-10-2011 Depression Screening Depression Scre ening [facility] Start: 05-10-2011 Hepatitis C screening Hepatitis C Sc nya [facility] Start: 05-10-2011 HIV screening HIV Screening [facility] Start: 01-17-2009 Varicella vaccination Varicell a Vaccines (1 of 2 - 2-dose childhood series) [facility] Start: 2005 Depresssion Monitoring Depresssion M onitoring [facility] Start: 1997 IPV Vaccines (4 of 4 - 4-dose series) IPV Vaccines (4 of 4 - 4-dose series) [facility] Start: 1993 COVID-19 Vaccine (#1) COVID-19 Vacci ne (#1) [facility] Start: 1993 HIV screening HIV Screening [facility] Patient Education ED Knee Sprain ED Patellar Dislocation/Subluxation [facility] Work Phone: Patient referral [facility] Work Phone: Immunizations Immunization Date Immunization Notes Care Provider Fa cili 10-14-2017 tetanus toxoid, redu samara diphtheria toxoid, and acellular pertussis vaccine, adsorbed Joesph Brown MD Work Phone: [facility] Work Phone: 11-28-2013 influenza, seasonal, injectable, preservative free Pradeep Calhoun MD Work Phone: [facility] 11-28-2013 influenza virus vacc ine, unspecified formulation Joesph Brown MD Work Phone: [facility] 11-30-2012 influenza, seasonal, injectable Pradeep Calhoun MD Work Phone: [facility] 12-20-2008 novel Influenza-H1N1 -09, live virus for nasal administration Pradeep Calhoun MD Work Phone: [facility] 08-27-1994 diphtheria, tetanus toxoids and acellular pertussis vaccine, unspecified formulation Pradeep Calhoun MD Work Phone: [facility] 08-27-1994 haemophilus influenz ae type b vaccine, conjugate unspecified formulation Pradeep Calhoun MD Work Phone: [facility] 08-27-1994 measles, mumps and rubella virus vaccine Pradeep Calhoun MD Work Phone: [facility] 04-23-1994 hepatitis B vaccine, pediatric or pediatric/adolescent dosage Pradeep Calhoun MD Work Phone: [facility] 1993 diphtheria, tetanus toxoids and pertussis vaccine Pradeep Calhoun MD Work Phone: [facility] 1993 haemophilus influenz ae type b vaccine, conjugate unspecified formulation Pradeep Calhoun MD Work Phone: [facility] 1993 poliovirus vaccine, unspecified formulation Joesph Brown MD Work Phone: [facility] 1993 diphtheria, tetanus toxoids and pertussis vaccine Pradeep Calhoun MD Work Phone: [facility] 1993 haemophilus influenz ae type b vaccine, conjugate unspecified formulation Pradeep Calhoun MD Work Phone: [facility] 1993 hepatitis B vaccine, pediatric or pediatric/adolescent dosage Pradeep Calhoun MD Work Phone: [facility] 1993 poliovirus vaccine, unspecified formulation Pradeep Calhoun MD Work Phone: [facility] 1993 diphtheria, tetanus toxoids and pertussis vaccine Pradeep Calhoun MD Work Phone: [facility] 1993 haemophilus influenz ae type b vaccine, conjugate unspecified formulation Pradeep Calhoun MD Work Phone: [facility] 1993 hepatitis B vaccine, pediatric or pediatric/adolescent dosage Pradeep Calhoun MD Work Phone: [facility] 1993 poliovirus vaccine, unspecified formulation Pradeep Calhoun MD Work Phone: [facility] Payers Date Payer Category Payer Self-pay [id number] 2022 Unknown [id number] 2019 Medicaid [id number] Private Health Insurance Private Health Insurance [facility] [id number] Unknown [id number] Unknown [id number] 60 Unknown [id number] 60 Social History Date Type Detail Facility Start: 08-11-2021 End: 06-03-2023 Tobacco smoking status NHIS Unknown if ever smoked [facility] Start: 1995 Sex Assigned At Male [facility] Tobacco smoking stat NHIS Never smoked tobacco [facility] Start: 01-28-2021 Alcohol intake Current drinker of alcohol (finding) [facility] Start: 01-28-2021 End: 03-06-2024 History of Social function [facility] Start: 01-28-2021 End: 03-06-2024 Tobacco use panel [facility] Start: 1995 Sex Assigned At Not on file [facility] Start: 11-28-2021 Gender identity [id number] transsexual (finding) [facility] Start: 03-06-2024 Tobacco smoking status NHIS Ex-smoker [facility] History of tobacco use Current smoker [facility] History of tobacco use Cigarette Smoker [facility] Start: 03-06-2024 Tobacco use and exposure Former smokeless tobacco user [facility] Start: 03-06-2024 End: 07-18-2024 Alcoholic beverage intake [facility] Score (1-10 0), lower number is lower risk 91 [facility] Start: 08-17-2022 Gender identity Identifies as female gender (finding) [facility] Do you belong to any clubs or organizations such as restorationist groups, unions, fraternal or athletic groups, or school groups? No [facility] Are you now , , , , never or living with a partner? Living with partner [facility] How hard is it for y ou to pay for the very basics like food, housing, medical care, and heating Somewhat hard [facility] Do you feel stress - tense, restless, nervous, or anxious, or unable to sleep at night because your mind is troubled all the time - these days [OSQ] To some extent [facility] (I/We) worried wheth er (my/our) food would run out before (I/we) got money to buy more. Often true [facility] The food that (I/we) bought just didn't last, and (I/we) didn't have money to get more. Sometimes true [facility] Clinical Notes 03-03-2023 to 07-18-2024 Pradeep Calhoun [...] visit. Either the patient or their legal union representative has been informed of the risks and benefits of -- and alternatives to -- treatment through a remote evaluation and consents to proceed with the evaluation remotely. Recording using [employer] software for draft documentation of the visit was discussed with the patient/authorized union representative; all questions welcomed and answered. Patient/authorized union representative agreed to proceed HISTORY REVIEWED (electronic [...] correctly. - Provided informed consent documentation via [employer], detailing potential physical, emotional, and reproductive changes associated with hormone therapy. - Sent a [employer] message with questions to understand patient's gender [...] MD, MPH Director - [facility] Electrical Manufacturing Technician - Transgender Surgery and Medicine Program [facility] He/Him/They/Them documented in this encounter [facility] 07-18-2024 Note HNO ID: [id number] Author: PRADEEP CALHOUN MD Service: ? Author [...] visit. Either the patient or their legal union representative has been informed of the risks and benefits of -- and alternatives to -- treatment through a remote evaluation and consents to proceed with the evaluation remotely. Recording using [employer] software for draft documentation of the visit was discussed with the patient/authorized union representative; all questions welcomed and answered. Patient/authorized union representative agreed to proceed HISTORY REVIEWED (electronic [...] correctly. - Provided informed consent documentation via [employer], detailing potential physical, emotional, and reproductive changes associated with hormone therapy. - Sent a [employer] message with questions to understand patient's gender [...] Moderate: Drug john (more content not included)... [facility] 04-10-2024 Telephone encounter Note Called patient per below message. Left message to call office. Dolly Noel Per Roxanna Montejo - Due to a change in the provider's schedule, we will be changing your upcoming visit to a Virtual Visit. [facility] 04-10-2024 Miscellaneous Notes Called patient per below message. Left message to call office. Dolly Montejo - Due to a change in the provider's schedule, we will be changing your upcoming visit to a Virtual Visit. documented in this encounter [facility] 03-06-2024 Note HNO ID: [id number] Author: RITESH GARCIA, DO Service: ? Author [...] history and updated the Histories section of [facility]. Experiencing reflux symptoms Has not tried [...] history. Social history reviewed in [facility]. REVIEW OF SYSTEMS: Constitutional: Denies fever, denies [...] with plan, all concerns and questions addressed. [facility] 03-06-2024 History of Presen t illness Narrative [...] history and updated the Histories section of [facility]. Experiencing reflux symptoms Has not tried [...] history. Social history reviewed in [facility]. REVIEW OF SYSTEMS: Constitutional: Denies fever, denies [...] and questions addressed. documented in this encounter [facility] 06-04-2023 Discharge summary Note Date/Time June 03, 2023 8:26pm [facility] Medical Records Department [address] [place] [id number] Emergency Department Summary 06/03/23 MR#: [id number] Acct: [id number] Name: MYRON DEWITT Rep #:[id number] : 1995 28 From: Alvaro YADAV PCP: Care Physician,No Primary Status :REG ER Location: ED ADDENDUM by Dr. Armin Palmer MD on 06/04/23 at 0146 Patient endorsed to me by Dr. Husam Jaramillo to make final disposition on this patient that it is being evaluated by crisis. He was informed that the patient has been accepted at [facility] in [place] and is currently awaiting transfer. Patient has been stable throughout emergency department course thus far and has not required any medications except for nicotine patch. Dispositionis transferred to a psychiatric facility in stable condition. 06/04/23 0146<Electronically signed by Armin Palmer MD> Cosigner Signature (if applicable): 06/03/23 5402 <Electronically signed by Alejandro REYNA> cc: No [...] uneasy and brought her here for evaluation. [facility] <LEIF Hollingsworth - Last Filed: 06/03/23 21:44> [facility] Medical History Anxiety Depression Home Medications bupropion [...] % (Auto) 65.7 Lymph % (Auto) 25.5 Long % (Auto) 6.3 Eos % (Auto) 1.4 [...] distress vital signs are stable [facility] for suicidal ideation, inability to [...] - Last Filed: 06/03/23 21:39> [facility] Narrative Medical decision making narrative: I have personally performed a face to face assessment of the patient and have reviewed the DARRYL Note. I performed a substantive portion of the visit including all aspects of the following. My more findings include: History is [28-year-old biological male pgsczejizoevh-lxef-adx female. History of depression. More depressed and [...] no cords. No lacerations or trauma. 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 Normal dorsi plantarflexion. Back nontender. Neurologically [...] % (Auto) 65.7 Lymph % (Auto) 25.5 Long % (Auto) 6.3 Eos % (Auto) 1.4 [...] your Primary Care Provider. Call [facility] ([phone]) or report to the closest Emergency Room. Call 911 if necessary. 06/03/232143 <Electronically signed by Alvaro Delacruz REGULATORY AFFAIRS SPECIALIST-C> Cosigner Signature (if applicable): 06/03/232241 <Electronically signed by Kelton Jaramillo MD> CC: No Primary Care Physician ~ Signed [facility] Work Phone: [phone]) 888-858001-25-2024 Telephone encounter Note* Telephone Encounter - Joesph Brown MD - 03/04/2023 4:23 PM EST Noted [id number] Miscellaneous Notes* Telephone Encounter - Joesph Brown [...] until that appt. Thanks! documented in this encounterSGrant [id number] Telephone encounter Note* Telephone Encounter - Valeria Potts - 03/04/2023 4:20 PM EST 03/04/23 vm still full, mailed letter to patient. [facility] [id number] Telephone encounter Note* Telephone Encounter - Charlotte Guzman - 03/03/2023 4:23 PM EST 03/03 called the patient, patients VM is full and can't leave a message , will try again this week. [id number] Telephone encounter Note* Telephone Encounter - Joesph Brown MD - 03/03/2023 2:57 PM EST I got a refill request but I haven't seen her since 2021. I can refill for a short supply but she needs to come in for an appointment. Please get her scheduled and then let me know and I'll give a script bridging her until that appt. Thanks! [facility] CenterEvaluation noteNo assessment information availableWAdena Regional Medical Center Work Phone: Evaluation note* Diagnosis Gastroesophageal reflux disease with esophagitis without hemorrhage- Primary Screening for metabolic disorder [facility] Diagnosis Recurrent major depressive disorder, remission status unspecified- Primary Gender incongruence documented in this encounter [facility] Summary Purpose Family History No Family History Records FoundNo Family History Records FoundNo Family History Records FoundNo Family History Records FoundNo Family History Records FoundNo Family History Records FoundNo Family History Records Found Advance Directives No Advanced Directives Records Found Advance Directive Response Recorded Date/ Time Living Will No August 11, 2021 1 1:42pm Power of Dial Lathe Operator No August 11, 2021 11:42pm Advance Directive Response Recorded Date/ Time Living Will No June 03, 2023 9:32pm Power of Dial Lathe Operator No June 02 9:32pm Chief Complaint and Reason for Visit Chief Complaint left knee injury Chief Complaint si Additional Source Comments (unrecognized sect ion and content) No Status Records FoundNo Status Records FoundNo Status Records FoundNo Status Records FoundNo Status Records FoundNo Status Records FoundNo Status Records Found INFORMATION SOURCE (unrecogn ized section and content) DATE CREATED AUTHOR 09/30/2017 [employer] DATE CREATED AUTHOR AUTHOR'S ORGANIZ ATION 11/18/2017 [employer] DATE CREATED AUTHOR AUTHOR'S ORGANIZ ATION 07/12/2019 [facility] ([place]) DATE CREATED AUTHOR AUTHOR'S ORGANIZ ATION 08/26/2022 [facility] DATE CREATED AUTHOR AUTHOR'S ORGANIZ ATION 03/05/2023 [facility] DATE CREATED AUTHOR AUTHOR'S ORGANIZ ATION 07/16/2023 [facility] DATE CREATED AUTHOR AUTHOR'S ORGANIZ ATION 08/04/2024 [facility] Goals (unrecognized section and content) Goals may be documented in a n alternate sectionGoals may be documented in an alternate section Reason for Visit (unrecogniz ed section and content) Reason Onset Date Comments Appointment Request 03/03/2023 Reason Comments Yearly Exam Hormone Problem Reason Comments [facility] Care Teams (unrecognized sec tion and content) Manager Of Compliance Relationship Specialty Start Date End Date Joesph Brown MD [address] [place] [address] [address] [place] [address] PCP - General Internal Medicine 09/21/22 Team [...] or prosecute any alcohol or drug abuse patient.[facility] HospitalIn the event this information is protected by the Federal Confidentiality of Alcohol and Drug Abuse Patient Records regulations: The Federal rules restrict any use of the information to criminally investigate or prosecute any alcohol or drug abuse patient.[facility] HospitalIn the event this information is protected by the Federal Confidentiality of Alcohol and Drug Abuse Patient Records regulations: The Federal rules restrict any use of the information to criminally investigate or prosecute any alcohol or drug abuse patient.[facility] HospitalIn the event this information is protected by the Federal Confidentiality of Alcohol and Drug Abuse Patient Records regulations: The Federal rules restrict any use of the information to criminally investigate or prosecute any alcohol or drug abuse patient.[facility] FOR RECORDS PERTAINING TO PATIENTS WHO ARE [...] BE BASED ON THE PRIMARY CLINICAL RECORDS. [facility] [facility]. provides no warranty or guarantee of the accuracy or completeness of information in this document.
[2024-08-23 02:38] VITALS: BP 104/61; PULSE 96; RESP 18; TEMP 36.8; O2SAT 97
--- NOTE | 2024-08-23 02:39 | EDS_ITS ---
HPI History of Present Illness Chief Complaint: Dental Informant: patient Narrative Narrative: Patient is a 29-year-old male who states he has bad teeth. He states that he has had mild discomfort for the last few days but in the last few hours has had increasing pain to the right lower jaw. He states that there has been no recent trauma fevers chills difficulty breathing or swallowing but despite taking mbka-fkk-jynxujf medications the pain is unrelenting and with this presents for evaluation. [facility] Medical History (Updated 08/24/24 @ 06:[address] Harshal Vega, DO) Gender dysphoria Depression Anxiety Home Medications ?Medication ?Instructions ?Recorded ?Last Taken ?Type bupropion HCl 300 mg 24 hr tablet, 300 mg PO DAILY Unknown History extended release Held on 08/23/24. Instructions: per patient clindamycin HCl 300 mg capsule 300 mg PO 4X/DAY 10 day s #40 08/23/24 Unknown Rx (Cleocin HCl) CAPSULES oxycodone-acetaminophen 5 mg-325 1 tab PO Q6H PRN pain 3 days #12 08/23/24 Unknown Rx mg tablet (Percocet) tabs Allergy/AdvReac Type Severity Reaction Status Date / Time No Known Allergies Allergy Verified 08/23/24 01:56 Social History Smoking Status: Current some day smoker tobacco type: cigarettes and e- cigarettes ROS ROS ED Constitutional Constitutional ED: Denies chills or fever(s) Eyes Eyes: Denies change in vision ENT ENT ED: Reports other Details: Positive dental pain ; Denies sore throat Cardiovascular Cardiovascular: Denies chest pain Respiratory/Chest Respiratory/Chest: Denies cough or dyspnea Gastrointestinal Gastrointestinal: Denies abdominal pain, diarrhea, nausea or vomiting Musculoskeletal Musculoskeletal: Denies myalgias Integumentary Denies rash Neurologic Neurologic: Denies headache(s) Hematologic/Lymphatic Hematologic/Lymphatic: Denies easy bleeding or easy bruising Allergic/Immunologic Allergic/Immunologic ED: Denies mouth swelling or tongue swelling EXAM Physical Exam Const Vital Signs: 08/23/24 01:53 Temperature 98.6 F Temperature Source Temporal Pulse Rate 100 Respiratory Rate 16 Blood Pressure 125/77 H Blood Pressure Mean 93 Pulse Ox 96 Oxygen Delivery Method Room Air Positive well nourished and well developed General Appearance ED: well developed; Negative for pallor HEENT HEENT Narrative: Patient has dental caries that are most pronounced in the right lower molar. No obvious drainable abscess collection. No tongue or lip swelling no oral lesions no airway edema or compromise. No signs of ANUG Eyes PERRL and EOMs intact bilaterally Neck supple Neck Narrative: No brawny edema in the submental space to suggest Rudy's angina Resp normal respiratory effort and clear to auscultation bilaterally Cardio regular rate and regular rhythm Extremity normal to inspection Neuro oriented x3, CN's II-XII intact bilaterally and no sensory deficits noted Sensorium / Orientation: alert Motor Exam: strength 5/5 throughout Psych Mood & Affect: anxious Skin no rashes or lesions noted and no wounds General Skin Exam: Negative for jaundice or pallor MDM MDM MDM Narrative Medical decision making narrative: Patient arrived to the ER with stable vitals and reported worsening dental pain with known dental caries. There are no signs of ANUG or Rudy angina and by exam there is no obvious abscess on the gingival surface. Therefore there is no need for incision and drainage CT scan or laboratory study. History and exam is most consistent with a developing dental infection near the dental root. The patient will be placed on antibiotics secondary to this. In order to help with the pain from the infection he was given a dental block as documented below. However at this time his vitals are stable without signs of systemic infection ANUG Rudy's angina or airway compromise there is no need for further workup and he is otherwise safe for discharge Patient was given a right inferior alveolar dental block using 1.5 mL of 0.5% Marcaine and 1.5 mL of 2% lidocaine with epinephrine. Patient achieved good anesthesia with the injection and tolerated procedure well without complication History & Record Review Discussion w/independent historian: Patient Discharge Plan Triage Chief Complaint: Dental ED Provider: Harshal Vega Dx/Rx/DC Orders Clinical Impression: Dental infection, Dental caries, Pain, dental, Anxiety and depression Instructions: Dental Abscess, ED Dental Pain Prescriptions: New clindamycin HCl [Cleocin HCl] 300 mg capsule 300 mg PO 4X/DAY 10 Days Qty: 40 0RF oxycodone-acetaminophen [Percocet] 5-325 mg tablet 1 tab PO Q6H PRN (Reason: pain) 3 Days Qty: 12 0RF No Action bupropion HCl 300 mg tablet extended release 24 hr 300 mg PO DAILY Patient Comments: taking inconsisently Primary Care Provider: Baldomero Calhoun Referrals: Baldomero Calhoun MD [Primary Care Provider] - Activity Restrictions/Additional Instructions: Your history and exam indicate your pain is from a dental infection. Take the antibiotic as directed to help resolve the infection and pain. It will typically take 2 to 3 days for the antibiotic to take effect. Follow-up with your dentist to discuss need for further intervention and return to the ER should you have any further concerns. Print Language: Mauritian Disposition Disposition: Home, Self Care Discharge Date/Time: 08/23/24 02:47
== END 2024-08-23 02:47 | disposition home or self-care (01) ==
PROVIDERS: Emergency Provider Emergency Medicine; PCP Internal Medicine Adolescent Medicine; Visit Provider Emergency Medicine
DX: K04.7 Periapical abscess without sinus (principal); K02.9 Dental caries, unspecified; F32.A Depression, unspecified; F41.9 Anxiety disorder, unspecified; F17.210 Nicotine dependence, cigarettes, uncomplicated; F17.290 Nicotine dependence, other tobacco product, uncomplicated; Z79.899 Other long term (current) drug therapy
CPT/HCPCS: 64400; 99284